=== PATIENT | male | born 1945 | race Caucasian/White ===

== ENCOUNTER → 2017-02-02 | Outpatient (CLI) | payer BC ==
[~2017-02-02] MED LIST: ASPCH81X GT; ASPI-435 PO; ATV2 PO; BNC5 PO; BUPRTAB PO; CPR500 PO; CRS10 PO; ERGO500011 PO; FINA5TAB PO; IBUP600T44 PO; LITH600C PO; LORA-741 PO; LRT5 PO; METR-163 PO; OXCA300T4 PO; ROSU20TA PO; SENN25TA PO; TAMS0.4C38 PO; [UNRECOGNIZED DRUG - CODE]
[2017-02-02 13:27] LABS: CALCIUM 8.7 mg/dl (8.5-10.1); ESTIMATED AVERAGE GLUCOSE 117 mg/dl; HA1C FLAG Normal (Normal)
[2017-02-02 13:28] LABS: ALT/SGPT 28 U/L (12-78); BLOOD UREA NITROGEN 35 mg/dl (7-18); BUN/CREATININE RATIO 17.3 (10-20); CARBON DIOXIDE 26 mmol/L (21-32); CHLORIDE 109 mmol/L (98-107); CHOLESTEROL 142 mg/dl (0-200); GLUCOSE 109 mg/dl (70-99); POTASSIUM 4.9 mmol/L (3.5-5.1); SODIUM 139 mmol/L (136-145); TRIGLYCERIDES 449 mg/dl (0-150)
[2017-02-02 13:31] LABS: ALB/GLOB RATIO 1.4 (0.9-2); ALKALINE PHOSPHATASE 78 U/L (45-117); AST/SGOT 20 U/L (15-37); CHOLESTEROL/HDL RATIO 5.3; HDL CHOLESTEROL 27 mg/dl
== END | disposition home or self-care (01) ==
LOC: C.LABPVFM 07:56
PROVIDERS: ATTEND Urology
DX: F31.30 Bipolar disorder, current episode depressed, mild or moderate severity, unspecified (principal); R73.9 Hyperglycemia, unspecified; R97.20 Elevated prostate specific antigen [PSA]

== ENCOUNTER → 2017-04-01 | Day surgery (SDC) | payer BC ==
[2017-03-22 09:55] VITALS: BMI 26.0
[~2017-04-01] VITALS: Ht 172.7 cm; Wt 78.6 kg
[~2017-04-01] MED LIST changes: -ASPCH81X GT; -ATV2 PO; -CPR500 PO; -CRS10 PO; +ERGO1CAP41 PO; -ERGO500011 PO; -IBUP600T44 PO; +LIDOCAINE HCL 2% 2 ML VIAL (20MG/ML) ONE; -LITH600C PO; -LRT5 PO; -METR-163 PO; +PROPOFOL IV EMULSION 10 MG/ML 20 ML VIAL IV ONE; -SENN25TA PO; +SODIUM CHLORIDE 0.9% 500ML 500 ML IV ONE; -[UNRECOGNIZED DRUG - CODE]
[2017-04-01 12:53] VITALS: Ht 172.7 cm; Wt 78.6 kg
[2017-04-01 13:04] VITALS: TEMP 36.5
--- NOTE | 2017-04-01 13:20 | Endo History and Physical ---
History & Physical Date of Service: Apr 01, 2017. Chief Complaint: ABNORMAL CT SCAN Referring Physician: DR HINES History of Present Illness 71 yo CM who presents for EGD secondary to abnormal CT Scan Past Surgical History Hx Cardiac Surgery: No Hx Internal Defibrillator: No Hx Pacemaker: No Hx Abdominal Surgery: No Hx of Implantable Prosthesis: No Hx Post-Op Nausea and Vomiting: No Hx Cancer Surgery: No Hx Thoracic Surgery: No Hx Orthopedic: No Hx Urinary Tract Surgery: No Family History None Social History Smoking Status: Former Smoker Hx Substance Use: No Hx Alcohol Use: No Allergies Coded Allergies: Penicillins (Verified Allergy, Unknown, A CHILD COULD NOT TAKE, 04/01/17 ) Uncoded Allergies: METAL (Allergy, Unknown, RASH, 03/22/17) Current Medications Reported Home Medications Medications Dose Route/Sig Max Daily Dose Days Date Category Wellbutrin Xl (Bupropion Hcl) 150 Mg Tab 1 Tab PO BID 03/22/17 Reported Flomax (Tamsulosin Hcl) 0.4 Mg Cap 0.4 Mg PO QPM 03/22/17 Reported Crestor (Rosuvastatin Calcium) 20 Mg Tab 20 Mg PO DAILY 03/22/17 Reported Trileptal (Oxcarbazepine) 300 Mg Tab 2 Tabs PO QPM 03/22/17 Reported Trileptal (Oxcarbazepine) 300 Mg Tab 1 Tab PO QAM 03/22/17 Reported Ativan (Lorazepam) 0.5 Mg Tab 1-3 Tabs PO QPM PRN 03/22/17 Reported Proscar (Finasteride) 5 Mg Tab 5 Mg PO QAM 03/22/17 Reported Vitamin D 88596 Unit (Ergocalciferol) 50,000 Unit Cap 1 Tab PO MONTHLY 03/22/17 Reported Benicar (Olmesartan Medoxomil) 5 Mg Tab 5 Mg PO QAM 03/22/17 Reported Aspirin 81 (Aspirin) 81 Mg Tab 1 Tab PO Q2D 03/22/17 Reported Vital Signs Weight (Kilograms): 78.64 Height (Feet): 5 Height (Inches): 8 Date Time Temp Pulse Resp B/P (MAP) Pulse Ox O2 Delivery O2 Flow Rate FiO2 04/01/17 13:04 36.5 65 20 133/85 (101) 97 Room Air Physical Exam General Appearance: WD/WN, no apparent distress Respiratory/Chest: Auscultation: breath sounds normal Cardiovascular: Heart Auscultation: RRR Abdomen: Bowel Sounds: normal Inspection & Palpation: soft, non-distended, no tenderness, guarding & rebound Assessment and Plan Assessment: 71 yo CM who presents for EGD secondary to abnormal CT Scan Plan: Proceed with EGD.
--- NOTE | 2017-04-01 14:20 | Discharge Instructions ---
Endoscopy Patient Instructions Date / Procedure(s) Performed Apr 01, 2017. EGD Allergy Information Coded Allergies: Penicillins (Verified Allergy, Unknown, A CHILD COULD NOT TAKE, 04/01/17 ) Uncoded Allergies: METAL (Allergy, Unknown, RASH, 03/22/17) Discharge Date / Findings Apr 01, 2017. Esophageal stricture s/p dilation to 20mm Gastritis s/p biopsies Medication Instructions Stopped Medication(s): ASPIRIN OK to resume all medications today as prescribed Reported Home Medications Medications Dose Route/Sig Max Daily Dose Days Date Category Wellbutrin Xl (Bupropion Hcl) 150 Mg Tab 1 Tab PO BID 03/22/17 Reported Flomax (Tamsulosin Hcl) 0.4 Mg Cap 0.4 Mg PO QPM 03/22/17 Reported Crestor (Rosuvastatin Calcium) 20 Mg Tab 20 Mg PO DAILY 03/22/17 Reported Trileptal (Oxcarbazepine) 300 Mg Tab 2 Tabs PO QPM 03/22/17 Reported Trileptal (Oxcarbazepine) 300 Mg Tab 1 Tab PO QAM 03/22/17 Reported Ativan (Lorazepam) 0.5 Mg Tab 1-3 Tabs PO QPM PRN 03/22/17 Reported Proscar (Finasteride) 5 Mg Tab 5 Mg PO QAM 03/22/17 Reported Vitamin D 75315 Unit (Ergocalciferol) 50,000 Unit Cap 1 Tab PO MONTHLY 03/22/17 Reported Benicar (Olmesartan Medoxomil) 5 Mg Tab 5 Mg PO QAM 03/22/17 Reported Aspirin 81 (Aspirin) 81 Mg Tab 1 Tab PO Q2D 03/22/17 Reported Provider Instructions Activity Restrictions - No exercising or heavy lifting for 24 hours. - Do not drink alcohol the day of the procedure. - Do not drive a car or operate machinery until the day after the procedure. - Do not make any important decisions or sign important papers in 24 hours after the procedure. Following Day: - Return to full activity which may include returning to work/school. Diet Start your diet with liquids and light foods (jello, soup, juice, toast). Then eat your usual diet if not nauseated. Treatment For Common After Affects For mild abdominal pain, bloating, or excessive gas: - Rest - Eat lightly - Lie on right side Follow-Up Information Follow-up with DR HINES as scheduled Anesthesia Information What You Should Know You have had a procedure that required some medicine to reduce anxiety and discomfort. This treatment is called moderate sedation. After receiving the treatment, you may be sleepy, but you will be able to breathe on your own. The effects of the treatment may last for several hours. Follow these instructions along with Activity/Diet recommendations noted above: * Do NOT do anything where dizziness or clumsiness would be dangerous. * Rest quietly at home today, then you can be up and about tomorrow. * Have a responsible person stay with you the rest of today. * You may have had an I.V. today. If so, you may take the dressing off later today. Recommendations Call your doctor if: * Trouble breathing * Continuous vomiting for more than 24 hours * Temperature above 101 degrees * Severe abdominal pain or bloating * Pain not relieved by pain medicine ordered * There is increased drainage or redness from any incision * A large amount of rectal bleeding greater than 2-3 tablespoons. (If you had a polyp/s removed or have hemorrhoids, a small amount of blood - from the rectum is to be expected.) * You have any unanswered questions or concerns. IN THE EVENT OF A SERIOUS EMERGENCY, GO TO THE NEAREST EMERGENCY ROOM Your discharge instructions were prepared by provider Sadiq Lucio. Patient Instructions Signature Page Constantine Martinez Patient (or Guardian) Signature/Date: I have read and understand the instructions given to me by my caregivers. Caregiver/RN/Doctor Signature/Date: The above-named patient and/or guardian has received patient instructions on this date. + Original Patient Signature Page (only) stays with chart. Please make copy for patient.
--- NOTE | 2017-04-01 14:25 | GI REPORT ---
Procedure Date: 04/01/2017 1:41 PM Procedure: Upper GI endoscopy Indications: Abnormal CT of the GI tract Medicines: Monitored Anesthesia Care Complications: No immediate complications. Estimated Blood Loss: Estimated blood loss: none. Procedure: Pre-Anesthesia Assessment: - Prior to the procedure, a History and Physical was performed, and patient medications and allergies were reviewed. The patient's tolerance of previous anesthesia was also reviewed. The risks and benefits of the procedure and the sedation options and risks were discussed with the patient. All questions were answered, and informed consent was obtained. Prior Anticoagulants: The patient has taken aspirin, last dose was 5 days prior to procedure. ASA Grade Assessment: III - A patient with severe systemic disease. After reviewing the risks and benefits, the patient was deemed in satisfactory condition to undergo the procedure. After obtaining informed consent, the endoscope was passed under direct vision. Throughout the procedure, the patient's blood pressure, pulse, and oxygen saturations were monitored continuously. The scope was introduced through the mouth, and advanced to the second part of duodenum. The upper GI endoscopy was accomplished without difficulty. The patient tolerated the procedure well. Findings: One mild benign-appearing, intrinsic stenosis was found. This measured 1.5 cm (inner diameter) x 1 cm (in length) and was traversed. A TTS dilator was passed through the scope. Dilation with an 18-19-20 mm balloon (to a maximum balloon size of 20 mm) dilator was performed. The dilation site was examined and showed moderate improvement in luminal narrowing. Localized moderate inflammation characterized by erythema was found in the gastric antrum. Biopsies were taken with a cold forceps for histology. The examined duodenum was normal. Impression: - Benign-appearing esophageal stenosis. Dilated. - Gastritis. Biopsied. - Normal examined duodenum. Recommendation: - Resume previous diet. - Continue present medications. - Await pathology results. - Return to primary care physician as previously scheduled. Sadiq Lucio, 04/01/2017 2:24:37 PM This report has been signed electronically. Note Initiated On: 04/01/2017 1:41 PM I attest to the content of the Intraoperative Record and orders documented therein, exceptions below
--- NOTE | 2017-04-01 14:31 | Anesthesiology Progress Note ---
Anesthesia Post Op Note Date & Time Apr 01, 2017 at 14:31 Vital Signs Pain Intensity: 0 Vital Signs Past 12 Hours Date Time Temp Pulse Resp B/P (MAP) Pulse Ox O2 Delivery O2 Flow Rate FiO2 04/01/17 14:16 61 20 134/78 (96) 96 Room Air 04/01/17 13:04 36.5 65 20 133/85 (101) 97 Room Air Notes Mental Status: alert / awake / arousable, participated in evaluation Pt Amnestic to Procedure: Yes Nausea / Vomiting: adequately controlled Pain: adequately controlled Airway Patency, RR, SpO2: stable & adequate BP & HR: stable & adequate Hydration State: stable & adequate Anesthetic Complications: no major complications apparent
[2017-04-01 14:47] VITALS: BP 132/85; PULSE 57; O2SAT 96
== END | disposition home or self-care (01) ==
LOC: C.GI 12:46
PROVIDERS: ATTEND Internal Medicine
DX: K22.2 Esophageal obstruction (principal); K29.70 Gastritis, unspecified, without bleeding; Z87.891 Personal history of nicotine dependence; Z79.82 Long term (current) use of aspirin; Z79.899 Other long term (current) drug therapy

== ENCOUNTER → 2017-04-12 | Outpatient (CLI) | payer BC ==
[~2017-04-12] MED LIST changes: -LIDOCAINE HCL 2% 2 ML VIAL (20MG/ML) ONE; -PROPOFOL IV EMULSION 10 MG/ML 20 ML VIAL IV ONE; -SODIUM CHLORIDE 0.9% 500ML 500 ML IV ONE
== END | disposition home or self-care (01) ==
LOC: C.LABSPEC 14:49
PROVIDERS: ATTEND Urology
DX: R35.1 Nocturia (principal); R39.15 Urgency of urination; R35.0 Frequency of micturition; R39.198 Other difficulties with micturition; N40.1 Benign prostatic hyperplasia with lower urinary tract symptoms

== ENCOUNTER → 2017-07-13 | Outpatient (CLI) | payer BC ==
[~2017-07-13] MED LIST changes: -ERGO1CAP41 PO; +ERGO500011 PO
[2017-07-13 13:04] LABS: HEMATOCRIT 40.2 % (42-52); MEAN CELL VOLUME 90.7 fL (80-100); MEAN CELL VOLUME 91.4 fL (80-100); MEAN CORPUSCULAR HEMOGLOBIN 29.6 pg (25-34); MEAN CORPUSCULAR HGB CONC 32.7 g/dl (32-36); MEAN CORPUSCULAR HGB CONC 32.8 g/dl (32-36); MEAN PLATELET VOLUME 11.3 fL (7.4-10.4); PLATELET COUNT 162 K/uL (130-400); PLATELET COUNT 163 K/uL (130-400); RED BLOOD COUNT 4.52 M/uL (4.7-6.1); WHITE BLOOD COUNT 20.72 K/uL (4.8-10.8); WHITE BLOOD COUNT 20.73 K/uL (4.8-10.8)
[2017-07-13 13:08] LABS: ESTIMATED AVERAGE GLUCOSE 117 mg/dl; HA1C FLAG Normal (Normal)
[2017-07-13 13:17] LABS: URINE APPEARANCE CLEAR (CLEAR); URINE BILIRUBIN NEG (NEG); URINE COLOR YELLOW; URINE NITRITE NEG (NEG); URINE PH 5.5 (4.5-7.5); URINE SPECIFIC GRAVITY 1.019 (1.000-1.030); UROBILINOGEN NEG (NEG)
[2017-07-13 13:19] LABS: MANUAL MICROSCOPIC REQUIRED? NO; REVIEW REQ? NO
[2017-07-13 13:20] LABS: CREATININE, URINE 82.3 mg/dl; URINE PROTIEN/CREAT RATIO 2.2 (0-0.2)
[2017-07-13 13:24] LABS: ALT/SGPT 31 U/L (12-78); AST/SGOT 21 U/L (15-37); BLOOD UREA NITROGEN 30 mg/dl (7-18); BUN/CREATININE RATIO 15.4 (10-20); CALCIUM 8.4 mg/dl (8.5-10.1); CARBON DIOXIDE 23 mmol/L (21-32); CHLORIDE 107 mmol/L (98-107); CHOLESTEROL 167 mg/dl (0-200); CREATININE 1.96 mg/dl (0.60-1.40); GLUCOSE 107 mg/dl (70-99); POTASSIUM 5.3 mmol/L (3.5-5.1); SODIUM 136 mmol/L (136-145)
[2017-07-13 13:27] LABS: ALB/GLOB RATIO 1.2 (0.9-2); ALKALINE PHOSPHATASE 83 U/L (45-117); ALT/SGPT 32 U/L (12-78); AST/SGOT 21 U/L (15-37); BLOOD UREA NITROGEN 31 mg/dl (7-18); BUN/CREATININE RATIO 15.4 (10-20); CALCIUM 8.5 mg/dl (8.5-10.1); CARBON DIOXIDE 22 mmol/L (21-32); CHLORIDE 106 mmol/L (98-107); CHOLESTEROL/HDL RATIO 4.8; CREATININE 1.99 mg/dl (0.60-1.40); GLUCOSE 102 mg/dl (70-99); HDL CHOLESTEROL 35 mg/dl; LDL CHOLESTEROL CALCULATED 53 mg/dl; POTASSIUM 5.4 mmol/L (3.5-5.1); SODIUM 136 mmol/L (136-145); TRIGLYCERIDES 396 mg/dl (0-150); VERY LOW DENSITY LIPOPROT CALC 79 mg/dl
[2017-07-13 13:39] LABS: ALB/GLOB RATIO 1.2 (0.9-2); ALKALINE PHOSPHATASE 84 U/L (45-117); CHOLESTEROL 160 mg/dl (0-200); CHOLESTEROL/HDL RATIO 4.3; HDL CHOLESTEROL 37 mg/dl; LDL CHOLESTEROL CALCULATED 45 mg/dl; TRIGLYCERIDES 391 mg/dl (0-150); VERY LOW DENSITY LIPOPROT CALC 78 mg/dl
[2017-07-13 14:23] LABS: BASO % 0.2 %; BASO ABS # 0.04 K/uL (0-0.2); COMPLETE YES; EOS % 1.1 %; IG% 0.1 %; LYMPH % 71.4 %; LYMPH ABS # 14.79 K/uL (1.2-3.4); MONO % 5.2 %; SMUDGE CELLS PRESENT
== END | disposition home or self-care (01) ==
LOC: C.LABPVFM 08:10
PROVIDERS: ATTEND Internal Medicine Nephrology
DX: I12.9 Hypertensive chronic kidney disease with stage 1 through stage 4 chronic kidney disease, or unspecified chronic kidney disease (principal); R80.9 Proteinuria, unspecified; E55.9 Vitamin D deficiency, unspecified; N18.3 Chronic kidney disease, stage 3 (moderate); E78.5 Hyperlipidemia, unspecified; R73.03 Prediabetes

== ENCOUNTER → 2018-03-14 | Outpatient (CLI) | payer BC ==
[2018-03-14 12:30] LABS: HEMATOCRIT 39.7 % (42-52); HEMOGLOBIN 12.9 g/dL (14.0-18.0); MEAN CELL VOLUME 90.8 fL (80-100); MEAN CORPUSCULAR HEMOGLOBIN 29.5 pg (25-34); MEAN CORPUSCULAR HGB CONC 32.5 g/dl (32-36); PLATELET COUNT 154 K/uL (130-400); RED CELL DISTRIBUTION WIDTH SD 46.8 fL (36.4-46.3); WHITE BLOOD COUNT 18.22 K/uL (4.8-10.8)
[2018-03-14 12:50] LABS: ALBUMIN 3.7 gm/dl (3.4-5.0); ALKALINE PHOSPHATASE 86 U/L (45-117); ALT/SGPT 28 U/L (12-78); AST/SGOT 23 U/L (15-37); BLOOD UREA NITROGEN 26 mg/dl (7-18); CALCIUM 8.5 mg/dl (8.5-10.1); CARBON DIOXIDE 24 mmol/L (21-32); CREATININE 1.87 mg/dl (0.60-1.40); GLUCOSE 104 mg/dl (70-99); SODIUM 137 mmol/L (136-145); TOTAL PROTEIN 6.7 gm/dl (6.4-8.2)
[2018-03-14 13:23] LABS: BASO % 0.2 %; BASO ABS # 0.03 K/uL (0-0.2); EOS % 0.8 %; EOS ABS # 0.14 K/uL (0-0.5); IG# 0.04 K/uL (0.00-0.02); LYMPH % 68.6 %; MONO % 4.8 %; MONO ABS # 0.87 K/uL (0.11-0.59); NEUT % 25.4 %; NEUT ABS # 4.64 K/uL (1.4-6.5)
--- NOTE | 2018-04-04 09:24 | CODING QUERY NO DIAGNOSIS ---
: 1945 TREATMENT RENDERED WITHOUT A DIAGNOSIS To promote full compliance with coding requirements relating to patient care, physician participation is requested in all cases of home care consultant uncertainty. Please assist us with providing a diagnosis/symptom for the test(s) below: A diagnosis/symptom was not documented on your Order. A valid diagnosis/symptom is required to bill all insurances. Please remember that we are unable to code a diagnosis of rule out, probable, possible, questionable, or suspected. Tests that require a diagnosis: DOS: 03/14/18 * PSA DIAGNOSIS: Provider Signature: Date: Thank you Carol Loaiza Health Information Management Once completed, please kindly fax back to [phone] For questions please call [phone]
== END | disposition home or self-care (01) ==
LOC: C.LABPVFM 08:37
PROVIDERS: ATTEND Internal Medicine Nephrology
DX: I12.9 Hypertensive chronic kidney disease with stage 1 through stage 4 chronic kidney disease, or unspecified chronic kidney disease (principal); R80.9 Proteinuria, unspecified; E55.9 Vitamin D deficiency, unspecified; N18.3 Chronic kidney disease, stage 3 (moderate); E78.1 Pure hyperglyceridemia; C91.90 Lymphoid leukemia, unspecified not having achieved remission; R97.20 Elevated prostate specific antigen [PSA]

== ENCOUNTER → 2018-04-21 | Outpatient (CLI) | payer BC ==
--- NOTE | 2018-04-21 12:12 | DIAGNOSTIC IMAGING REPORT ---
CHEST 2 VIEWS ROUTINE HISTORY: Breast pain, right COMPARISON: Chest 01/14/2009. FINDINGS: The lungs are clear. Cardiac silhouette is normal in size. No pleural effusions. No pneumothorax. IMPRESSION: No acute process. Electronically signed by: Anthony Christine M.D. 04/21/2018 12:11 PM Dictated Date/Time: 04/21/2018 12:08 PM
== END | disposition home or self-care (01) ==
LOC: C.RADPV 11:49
PROVIDERS: ATTEND Family Medicine
DX: N64.4 Mastodynia (principal)

== ENCOUNTER 2019-04-15 17:21 | Observation (INO) ==
[2019-04-15] MEDS ORDERED: ONDANSETRON INJ 2 MG/ML 2 ML VIAL IV STA (17:56)
[2019-04-15] MEDS ORDERED: SODIUM CHLORIDE 0.9% 1000ML 1,000 ML IV ONE (17:56)
[2019-04-15 18:00] LABS: Albumin Level 4.1 gm/dl (3.4-5.0); Calcium 8.8 mg/dl (8.5-10.1); Creatinine Clr Calc Pharmacy 23.1 ml/min; Est GFR (African American) 22.7; Est GFR (Non-African American) 19.6; Potassium 4.7 mmol/L (3.5-5.1)
[2019-04-15 18:03] LABS: Albumin Globulin Ratio 1.4 (0.9-2); Bilirubin,Total 0.4 mg/dl (0.2-1); Total Protein 7.1 gm/dl (6.4-8.2)
[2019-04-15 18:19] LABS: Mean Corpuscular Hgb Conc 33.9 g/dL (32-36); Mean Platelet Volume 10.9 fL (7.4-10.4); Platelet Count 156 K/uL (130-400)
[2019-04-15 18:20] LABS: Appearance Urine Clear (Clear); Bacteria Urine Automated Negative (Negative); Bilirubin Urine Negative (Negative); Blood Urine Negative (Negative); Color Urine Yellow; Glucose Urine UA Negative (Negative); Ketones Urine Negative (Negative); Leukocyte Esterase Urine Negative (Negative); Nitrite Urine Negative (Negative); Protein Urine 3+ (Negative); RBC Urine Automated 0-4 /hpf (0-4); Specific Gravity Urine 1.024 (1.000-1.030); Urobilinogen Urine Negative (Negative)
[2019-04-15 18:42] LABS: Hematocrit (blood only) 38.6 % (42-52); Hemoglobin 13.1 g/dL (14.0-18.0); Mean Corpuscular Volume 92.3 fL (80-100); RDW Coefficient of Variation 13.9 % (11.5-14.5); RDW Standard Deviation 46.4 fL (36.4-46.3); Red Blood Count 4.18 M/uL (4.7-6.1); White Blood Count 24.45 K/uL (4.8-10.8)
[2019-04-15 18:43] LABS: Basophils # (auto) 0.04 K/uL (0-0.2); Basophils % (auto) 0.2 %; Eosinophils # (auto) 0.13 K/uL (0-0.5); Eosinophils % (auto) 0.5 %; Immature Granulocytes # (auto) 0.04 K/uL (0.00-0.02); Immature Granulocytes % (auto) 0.2 %; Lymphocytes # (auto) 12.74 K/uL (1.2-3.4); Lymphocytes % (auto) 52.1 %; Monocytes # (auto) 1.18 K/uL (0.11-0.59); Monocytes % (auto) 4.8 %; Neutrophils # (auto) 10.32 K/uL (1.4-6.5); Neutrophils % (auto) 42.2 %
--- NOTE | 2019-04-15 19:22 | CT Scan Report ---
CT SCAN OF THE ABDOMEN AND PELVIS WITHOUT IV CONTRAST CLINICAL HISTORY: Right lower quadrant abdominal pain. COMPARISON STUDY: Abdominal CT dated 11/07/2009. PET/CT dated 06/11/2018. TECHNIQUE: CT scan of the abdomen and pelvis is performed from the lung bases to the proximal femora. Images are reviewed in the axial, sagittal, and coronal planes. IV contrast was not administered for this examination as per the referring clinician. Note that the examination was performed in signific antly suboptimal fashion without oral and IV contrast. A dose lowering technique was utilized adherin g to the principles of ALARA. CT DOSE: 682.73 mGy.cm FINDINGS: Lung bases: The heart is normal in size and without pericardial effusion. Postoperative change is not ed at the left lung base. There is left basilar scarring/atelectasis. No airspace consolidation or pl eural effusion is identified. Liver: The unenhanced liver is normal in size, contour, and attenuation. There is no intrahepatic zainab iary ductal dilatation. Gallbladder: There are calcified gallstones, with no CT evidence of acute cholecystitis. Spleen: Normal in size and attenuation. Pancreas: The unenhanced pancreas is moderately atrophic and grossly unremarkable. Adrenal glands: Unremarkable. Kidneys: The unenhanced kidneys are atrophic and without hydronephrosis. There are no renal calculi i dentified. Renal cysts measure up to 5.6 cm. Additional complex/hyperdense renal cysts are noted. The se are similar to previous. An indeterminant 2.0 cm lesion in the anterior interpolar right kidney as seen on image #179. Abdominal vasculature: There is advanced atherosclerotic calcification and ectasia of the abdominal a radha. An aneurysm of the distal abdominal aorta measures 3.5 x 3.9 cm (AP x transverse). Bowel: There is advanced colonic diverticulosis without CT evidence of acute diverticulitis. No bowel obstruction is seen. Mild colonic fecal retention is observed. The appendix is distended and fluid- filled, measuring up to 10 mm in diameter as seen on image #339. There is peritoneal inflammation, an d findings are consistent with acute appendicitis. The appendix approaches a fat-containing right ing uinal hernia. There is no organized fluid collection to suggest abscess. Peritoneum: There is no intraperitoneal free air or abdominal ascites. There is a small fat-containin g umbilical hernia. Lymphadenopathy: None. Pelvic viscera: The prostate gland is enlarged and heterogeneous, measuring 5.9 cm in transverse diam eter. There is median lobe hypertrophy. The bladder wall is thickened and trabeculated indicating chr onic outlet obstruction. There are bilateral fat-containing inguinal hernias. Skeletal structures: The skeletal structures are osteopenic. There is mild lumbosacral spondylosis. N o lytic or blastic lesions are seen. IMPRESSION: 1. Suboptimal examination without oral and IV contrast. 2. Findings are consistent with acute appendicitis. There is no evidence of abscess or perforation. N ote that the tip of the appendix may be contained within a right inguinal hernia. 3. Cholelithiasis. 4. There is a 2.0 cm indeterminant lesion within the anterior interpolar right kidney. Follow-up with a nonemergent contrast-enhanced renal protocol CT or MRI is recommended for further assessment. 5. There is a 3.5 x 3.9 cm infrarenal abdominal aortic aneurysm. 6. Advanced colonic diverticulosis without CT evidence of acute diverticulitis. 7. Additional findings as above. Electronically signed by: Max Maya M.D. 04/15/2019 7:21 PM
[2019-04-15] MEDS ORDERED: cefOXitin 2,000 MG/60 ML BAG IV STA (19:30)
--- NOTE | 2019-04-15 20:47 | History & Physical Report ---
Date of Service April 15, 2019 Assessment & Plan (1) Acute appendicitis: This patient's history, physical findings, laboratories and CT findings (I reviewed both the images and the report) are consistent with appendicitis. I have recommended a laparoscopic appendectomy. I explained the possible need to convert to an open procedure. I explained the possible complications associated with those procedures. The patient wishes to go ahead with surgery and has signed a consent form. Present on Admission?: Yes History of Present Illness Chief Complaint: Right lower quadrant pain Primary Care Provider: SOLEDAD Lopez This is a 73-year-old male who presented to the emergency room with a complaint of pain in the right lower quadrant just above the inguinal crease. It began about 10:00 this morning. The pain began in that area and has remained there. It does not radiate to the left or into the upper abdomen and does not radiate around to his. It is sharp in character and is exacerbated by motion. He is never had pain like this before. This is not accompanied by nausea or vomiting. He has not had fever or chills. His bowels move regularly without diarrhea, constipation, melena or hematochezia. He denies dysuria and hematuria. He is never had previous abdominal surgery. Allergies Allergy/AdvReac Type Severity Reaction Status Date / Time Penicillins Allergy Unknown A CHILD Verified 02/27/19 11:02 COULD NOT TAKE Home Medications Home Medications Medication Instructions Recorded Confirmed Type ergocalciferol (vitamin D2) 50,000 unit PO MONTHLY 06/18/18 04/15/19 History [Vitamin D2] finasteride 5 mg tablet 5 mg PO QAM #30 tab 02/22/19 04/15/19 Rx tamsulosin 0.4 mg capsule 0.4 mg PO QPM #90 cap 02/22/19 04/15/19 Rx lorazepam 1 mg PO HS 04/15/19 04/15/19 History oxcarbazepine 600 mg PO HS 04/15/19 04/15/19 History oxcarbazepine [Trileptal] 300 mg PO QAM 04/15/19 04/15/19 History rosuvastatin [Crestor] 20 mg PO QAM 04/15/19 04/15/19 History Past Med/Surg History Medical History Abdominal aneurysm AAA 3.6cm in axial diameter (previously 2.7cm on 2011 imaging) Bipolar disorder Chronic lymphocytic leukemia avg WBC ~ 18 History of diverticulitis Hyperlipidemia Hypertension Kidney cysts noted on 06/05/18 MRI Kidney disease STAGE 3/DR MITCHELL Lung nodule LEFT Pre-diabetes Surgical History S/P lobectomy of lung Left lower Hx of colonoscopy Hx of endoscopy UPPER Hx of oral surgery Family History Other Family history non-contributory Social History Preferred Language: Wolof Communication Ability: Effective Visual Impairment: No Limitations Beliefs That Will Affect Care: Jewish Jewish Beliefs: [employer] marital status: Current Living Situation: Spouse Feels Safe at Home: Yes Smoking Status: Former smoker Cigarettes Per Day: 50 PACK YEARS Hx Alcohol Use: No Hx Substance Use: No Seatbelt Use: always Review of Systems Constitutional: no fever and no chills Respiratory: no cough and no dyspnea Cardiovascular: no chest pain Gastrointestinal: as per Subjective / HPI Genitourinary: + as per Subjective / HPI Hematologic / Lymphatic: + problem reported (history of CLL) Physical Exam Constitutional: no acute distress Respiratory: normal respiratory effort, lungs clear to auscultation Cardiovascular: Rate/Rhythm: regular rate and regular rhythm Gastrointestinal (Abdomen): Inspection/Auscultation: abdomen normal to inspection; abdomen not distended Percussion/Palpation: + abdomen tender (Significant tenderness in the right lower quadrant) and abdomen soft Skin: no rashes, warm and dry Lymphatic: no cervical lymphadenopathy Results & Data Vital Signs (Past 12 Hours) Vital Signs Temp Pulse Pulse Resp BP BP Pulse Ox 04/15/19 19:31 68 75 23 156/94 H 156/94 H 97 04/15/19 18:30 66 15 139/79 97 04/15/19 18:06 68 18 146/83 H 96 04/15/19 17:43 95 04/15/19 17:26 36.8 C 73 20 134/84 97 Laboratory Results 04/15/19 04/15/19 04/15/19 Range/Units 18:02 17:15 17:15 WBC 24.45 H (4.8-10.8) K/uL RBC 4.18 L (4.7-6.1) M/uL Hgb 13.1 L (14.0-18.0) g/dL Hct 38.6 L (42-52) % MCV 92.3 (80-100) fL MCH 31.3 (25-34) pg MCHC 33.9 (32-36) g/dL RDW Std Deviation 46.4 H (36.4-46.3) fL RDW Coeff of Stephen 13.9 (11.5-14.5) % Plt Count 156 (130-400) K/uL MPV 10.9 H (7.4-10.4) fL Immature Gran % (Auto) 0.2 % Neut % (Auto) 42.2 % Lymph % (Auto) 52.1 % [place] % (Auto) 4.8 % Eos % (Auto) 0.5 % Baso % (Auto) 0.2 % Immature Gran # (Auto) 0.04 H (0.00-0.02) K/uL Neut # (Auto) 10.32 H (1.4-6.5) K/uL Lymph # (Auto) 12.74 H (1.2-3.4) K/uL [place] # (Auto) 1.18 H (0.11-0.59) K/uL Eos # (Auto) 0.13 (0-0.5) K/uL Baso # (Auto) 0.04 (0-0.2) K/uL Sodium 139 (136-145) mmol/L Potassium 4.7 (3.5-5.1) mmol/L Chloride 109 H (98-107) mmol/L Carbon Dioxide 22 (21-32) mmol/L Anion Gap 8.0 (3-11) BUN 48 H (7-18) mg/dl Creatinine 3.01 H (0.6-1.4) mg/dl Est Cr Clr Drug Dosing 23.1 ml/min Est GFR ( Amer) 22.7 Est GFR (Non-Af Amer) 19.6 BUN/Creatinine Ratio 16.0 (10-20) Glucose 101 H (70-99) mg/dl Calcium 8.8 (8.5-10.1) mg/dl Total Bilirubin 0.4 (0.2-1) mg/dl AST 23 (15-37) U/L ALT 29 (12-78) U/L Alkaline Phosphatase 54 (45-117) U/L Total Protein 7.1 (6.4-8.2) gm/dl Albumin 4.1 (3.4-5.0) gm/dl Globulin 3.0 (2.5-4.0) gm/dl Albumin/Globulin Ratio 1.4 (0.9-2) Lipase 646 H (73-393) U/L Urine Color Yellow Urine Appearance Clear (Clear) Urine pH 5.0 (4.5-7.5) Ur Specific [place] 1.024 (1.000-1.030) Urine Protein 3+ H (Negative) Urine Glucose (UA) Negative (Negative) Urine Ketones Negative (Negative) Urine Blood Negative (Negative) Urine Nitrite Negative (Negative) Urine Bilirubin Negative (Negative) Urine Urobilinogen Negative (Negative) Ur Leukocyte Esterase Negative (Negative) Urine WBC (Auto) 1-5 (0-5) /hpf Urine RBC (Auto) 0-4 (0-4) /hpf U Hyaline Cast (Auto) 1-5 (0-5) /lpf U Epithel Cells (Auto) 5-10 H (0-5) /lpf Urine Bacteria (Auto) Negative (Negative) Diagnostic Findings CT SCAN OF THE ABDOMEN AND PELVIS WITHOUT IV CONTRAST CLINICAL HISTORY: Right lower quadrant abdominal pain. COMPARISON STUDY: Abdominal CT dated 11/07/2009. PET/CT dated 06/11/2018. TECHNIQUE: CT scan of the abdomen and pelvis is performed from the lung bases to the proximal femora. Images are reviewed in the axial, sagittal, and coronal planes. IV contrast was not administered for this examination as per the referring clinician. Note that the examination was performed in significantly suboptimal fashion without oral and IV contrast. A dose lowering technique was utilized adhering to the principles of ALARA. CT DOSE: 682.73 mGy.cm FINDINGS: Lung bases: The heart is normal in size and without pericardial effusion. Postoperative change is noted at the left lung base. There is left basilar scarring/atelectasis. No airspace consolidation or pleural effusion is identified. Liver: The unenhanced liver is normal in size, contour, and attenuation. There is no intrahepatic biliary ductal dilatation. Gallbladder: There are calcified gallstones, with no CT evidence of acute cholecystitis. Spleen: Normal in size and attenuation. Pancreas: The unenhanced pancreas is moderately atrophic and grossly unremarkable. Adrenal glands: Unremarkable. Kidneys: The unenhanced kidneys are atrophic and without hydronephrosis. There are no renal calculi identified. Renal cysts measure up to 5.6 cm. Additional complex/hyperdense renal cysts are noted. These are similar to previous. An indeterminant 2.0 cm lesion in the anterior interpolar right kidney as seen on image #179. Abdominal vasculature: There is advanced atherosclerotic calcification and ectasia of the abdominal aorta. An aneurysm of the distal abdominal aorta measures 3.5 x 3.9 cm (AP x transverse). Bowel: There is advanced colonic diverticulosis without CT evidence of acute diverticulitis. No bowel obstruction is seen. Mild colonic fecal retention is observed. The appendix is distended and fluid-filled, measuring up to 10 mm in diameter as seen on image #339. There is peritoneal inflammation, and findings are consistent with acute appendicitis. The appendix approaches a fat-containing right inguinal hernia. There is no organized fluid collection to suggest abscess. Peritoneum: There is no intraperitoneal free air or abdominal ascites. There is a small fat-containing umbilical hernia. Lymphadenopathy: None. Pelvic viscera: The prostate gland is enlarged and heterogeneous, measuring 5.9 cm in transverse diameter. There is median lobe hypertrophy. The bladder wall is thickened and trabeculated indicating chronic outlet obstruction. There are bilateral fat-containing inguinal hernias. Skeletal structures: The skeletal structures are osteopenic. There is mild lumbosacral spondylosis. No lytic or blastic lesions are seen. IMPRESSION: 1. Suboptimal examination without oral and IV contrast. 2. Findings are consistent with acute appendicitis. There is no evidence of abscess or perforation. Note that the tip of the appendix may be contained within a right inguinal hernia. 3. Cholelithiasis. 4. There is a 2.0 cm indeterminant lesion within the anterior interpolar right kidney. Follow-up with a nonemergent contrast-enhanced renal protocol CT or MRI is recommended for further assessment. 5. There is a 3.5 x 3.9 cm infrarenal abdominal aortic aneurysm. 6. Advanced colonic diverticulosis without CT evidence of acute diverticulitis. 7. Additional findings as above. (1) Acute appendicitis Acute appendicitis type: unspecified acute appendicitis type Qualified Code(s): K35.80 - Unspecified acute appendicitis
[2019-04-15] MEDS ORDERED: HEPARIN SOD (PORCINE) 5,000 UNITS/ML VIAL ONE (20:52)
[2019-04-15] MEDS ORDERED: BUPIVACAINE 0.5 % 5 MG/1 ML MPF 30ML VIAL ONE (20:52)
--- NOTE | 2019-04-15 20:53 | Anesthesiology Consultation ---
Date of Service April 15, 2019 Assessment & Plan (1) Encounter for pre-operative examination: Chart Review Chart Review: Acceptable Risk for Surgery History Surgery Operation Date: 04/15/19 21:00 Proposed Procedures p Laparoscopic Appendectomy - Lan Hopkins MD Height/Weight Height: 5 ft 8 in Weight: 84.6 kg Allergies Allergy/AdvReac Type Severity Reaction Status Date / Time Penicillins Allergy Unknown A CHILD Verified 02/27/19 11:02 COULD NOT TAKE Medications Home Medications Medication Instructions Recorded Confirmed Last Taken ergocalciferol (vitamin D2) 50,000 unit PO MONTHLY 06/18/18 04/15/19 03/16/19 [Vitamin D2] finasteride 5 mg tablet 5 mg PO QAM #30 tab 02/22/19 04/15/19 04/15/19 tamsulosin 0.4 mg capsule 0.4 mg PO QPM #90 cap 02/22/19 04/15/19 04/14/19 lorazepam 1 mg PO HS 04/15/19 04/15/19 04/14/19 oxcarbazepine 600 mg PO HS 04/15/19 04/15/19 04/14/19 oxcarbazepine [Trileptal] 300 mg PO QAM 04/15/19 04/15/19 04/15/19 rosuvastatin [Crestor] 20 mg PO QAM 04/15/19 04/15/19 04/15/19 Past Medical History Medical History Abdominal aneurysm AAA 3.6cm in axial diameter (previously 2.7cm on 2011 imaging) Bipolar disorder Chronic lymphocytic leukemia avg WBC ~ 18 History of diverticulitis Hyperlipidemia Hypertension Kidney cysts noted on 06/05/18 MRI Kidney disease STAGE 3/DR MITCHELL Lung nodule LEFT Pre-diabetes Past Family History Family History Other Family history non-contributory Past Surgical History Surgical History S/P lobectomy of lung Left lower Hx of colonoscopy Hx of endoscopy UPPER Hx of oral surgery Social History Smoking Status: Former smoker Smoking cigarettes per day: 50 PACK YEARS Hx Alcohol Use: No Hx Substance Use: No substance use type: does not use Physical Exam Vital Signs Last Vital Signs Temp 36.8 C 04/15/19 17:26 Pulse 75 04/15/19 19:31 Resp 23 04/15/19 19:31 BP 156/94 H 04/15/19 19:31 Pulse Ox 97 04/15/19 19:31 Testing Laboratory Results 04/15/19 17:15 04/15/19 17:15 Urine Color Yellow 04/15/19 18:02 Urine Appearance Clear (Clear) 04/15/19 18:02 Urine pH 5.0 (4.5-7.5) 04/15/19 18:02 Ur Specific [place] 1.024 (1.000-1.030) 04/15/19 18:02 Urine Protein 3+ (Negative) H 04/15/19 18:02 Urine Glucose (UA) Negative (Negative) 04/15/19 18:02 Urine Ketones Negative (Negative) 04/15/19 18:02 Urine Nitrite Negative (Negative) 04/15/19 18:02 Ur Leukocyte Esterase Negative (Negative) 04/15/19 18:02 Urine WBC (Auto) 1-5 /hpf (0-5) 04/15/19 18:02 Urine RBC (Auto) 0-4 /hpf (0-4) 04/15/19 18:02 U Hyaline Cast (Auto) 1-5 /lpf (0-5) 04/15/19 18:02 U Epithel Cells (Auto) 5-10 /lpf (0-5) H 04/15/19 18:02 Urine Bacteria (Auto) Negative (Negative) 04/15/19 18:02 Electrocardiogram Date: 06/19/18 Findings: + NSR @ (61) and + NSST changes
[2019-04-15] MEDS ORDERED: fentaNYL citrate 100 MCG/2 ML VIAL ONE (21:05)
--- NOTE | 2019-04-15 21:38 | Emergency Department Note ---
Entered by Rick Islas acting as a scribe for Bryn Mccall DO History of Present Illness General Chief complaint: Abdominal Pain Stated complaint: AB PAIN History of Present Illness Provider complaint: Abdominal pain Onset (ago): hour(s) 7 Location: abdomen and right Radiation: non-radiation Pain Consistency: + constant Maximum Pain Intensity: 1 Current Pain Intensity: 1 Quality: + sharp Relieved By: + none Exacerbated By: + movement Associated symptoms: + nausea/vomiting (No vomiting) and + other (Negative urinary symptoms) The patient is a 73 year old male who presents to the Emergency Room with complaints of constant right lower quadrant abdominal pain that started today about 7 hours ago. The patient states that the pain is sharp but currently on rates it a 1/10, however it is worse with standing or movement. The patient saw his PCP earlier today and was sent here to rule out appendicitis. He notes that he has some nausea, but denies any vomiting or urinary symptoms. The patient has history of gallstones and diverticulitis but still his appendix. The only surgical history the patient has is a left lower lobe lung resection that he had done to treat cancer. The patient denies any change in bowel movements, testicular pain or penile pain. Home Medications Home Medications Medication Instructions Recorded Confirmed Type ergocalciferol (vitamin D2) 50,000 unit PO MONTHLY 06/18/18 04/15/19 History [Vitamin D2] finasteride 5 mg tablet 5 mg PO QAM #30 tab 02/22/19 04/15/19 Rx tamsulosin 0.4 mg capsule 0.4 mg PO QPM #90 cap 02/22/19 04/15/19 Rx lorazepam 1 mg PO HS 04/15/19 04/15/19 History oxcarbazepine 600 mg PO HS 04/15/19 04/15/19 History oxcarbazepine [Trileptal] 300 mg PO QAM 04/15/19 04/15/19 History rosuvastatin [Crestor] 20 mg PO QAM 04/15/19 04/15/19 History Allergies Allergy/AdvReac Type Severity Reaction Status Date / Time Penicillins Allergy Unknown A CHILD Verified 02/27/19 11:02 COULD NOT TAKE Past Med/Surg History Medical History Abdominal aneurysm AAA 3.6cm in axial diameter (previously 2.7cm on 2011 imaging) Bipolar disorder Chronic lymphocytic leukemia avg WBC ~ 18 History of diverticulitis Hyperlipidemia Hypertension Kidney cysts noted on 06/05/18 MRI Kidney disease STAGE 3/DR MITCHELL Lung nodule LEFT Pre-diabetes Surgical History S/P lobectomy of lung Left lower Hx of colonoscopy Hx of endoscopy UPPER Hx of oral surgery Family History Other Family history non-contributory Social History Preferred Language: Spanish Communication Ability: Effective Visual Impairment: No Limitations Beliefs That Will Affect Care: Orthodox Orthodox Beliefs: FAITH marital status: Current Living Situation: Spouse Feels Safe at Home: Yes Smoking Status: Former smoker Cigarettes Per Day: 50 PACK YEARS Hx Alcohol Use: No Hx Substance Use: No Seatbelt Use: always Review of Systems See HPI for pertinent positives & negatives. and A total of 10 systems reviewed and were otherwise negative Physical Exam Vital Signs Vital Signs - 24 hr 04/15/19 17:26 04/15/19 17:43 04/15/19 18:06 Temperature 36.8 C Temperature Source Oral Sepsis Recent Fever Within 48 Hours No Sepsis Action Taken by Nursing No Action Required Pulse Rate 73 68 Pulse Rate [Apical] Pulse Rate from SpO2 Sensor 67 Respiratory Rate 20 18 Respiratory Effort / Characteristics Non-Labored Spontaneous Respiratory Depth Normal Respiratory Pattern Regular Blood Pressure 134/84 146/83 H Blood Pressure [Right Arm] Blood Pressure Mean 100 104 Blood Pressure Mean [Right Arm] Pulse Oximetry 97 95 96 Oxygen Delivery Method Room Air Room Air Room Air 04/15/19 18:30 04/15/19 19:31 04/15/19 21:06 Temperature Temperature Source Sepsis Recent Fever Within 48 Hours Sepsis Action Taken by Nursing Pulse Rate 66 68 70 Pulse Rate [Apical] 75 Pulse Rate from SpO2 Sensor 67 68 Respiratory Rate 15 23 20 Respiratory Effort / Characteristics Respiratory Depth Respiratory Pattern Blood Pressure 139/79 156/94 H 169/94 H Blood Pressure [Right Arm] 156/94 H Blood Pressure Mean 99 114 Blood Pressure Mean [Right Arm] 114 Pulse Oximetry 97 97 97 Oxygen Delivery Method Room Air Room Air Room Air GENERAL: Sitting up in bed, alert, well appearing, well nourished, in moderate distress holding right abdomen, non-toxic EYE EXAM: normal conjunctiva. OROPHARYNX: no exudate, no erythema, lips, buccal mucosa, and tongue normal and mucous membranes are moist NECK: supple, no nuchal rigidity, no adenopathy, non-tender LUNGS: Clear to auscultation. Normal chest wall mechanics HEART: no murmurs, S1 normal and S2 normal ABDOMEN: abdomen soft, tenderness to palpation of the RLQ, normo-active bowel, sounds, no masses, no rebound or guarding. BACK: Back is symmetrical on inspection and there is no deformity, no midline tenderness, no CVA tenderness. SKIN: no rashes and no bruising UPPER EXTREMITIES: upper extremities are grossly normal. LOWER EXTREMITIES: No pitting edema. NEURO EXAM: Normal sensorium, cranial nerves II-XII grossly intact, normal speech, no gross weakness of arms, no gross weakness of legs. Course ED COURSE: Vital signs were reviewed and showed hypertension. The patients medical record was reviewed The above diagnostic studies were performed and reviewed. ED treatments and interventions as stated above. 0: The patient was evaluated in room B11B. A complete history and physical examination was performed. 1929: Upon reevaluation, the patient is resting in bed. I discussed my findings with the patient and he understands and agrees with the treatment plan. 193: I spoke to Dr. Sandeep Truong about the patient's case. He is going to be accepting the patient for further evaluation. Based on the patients age, coexisting illnesses, exam and lab findings the decision to treat as an inpatient was made. The patient remained stable while under my care. The patient will be evaluated for further management. Consultations Consultation #1: I spoke to Dr. Sandeep Truong about the patient's case. He is going to be accepting the patient for further evaluation. Time: 19:32 Administered Medications Discontinued Medications Sodium Chloride (Nss 1000ml) 1,000 mls @ 999 mls/hr IV .Q1H1M ONE Stop: 04/15/19 18:56 Last Infusion: 04/15/19 19:01 Dose: 0 mls/hr Documented by: [id number] Admin: 04/15/19 18:00 Dose: 999 mls/hr Documented by: [id number] Cefoxitin Sodium (Mefoxin) 2,000 mg in 60 mls @ 100 mls/hr IV NOW STA Stop: 04/15/19 20:05 Last Infusion: 04/15/19 20:49 Dose: 0 mls/hr Documented by: [id number] Admin: 04/15/19 20:13 Dose: 100 mls/hr Documented by: [id number] Ondansetron HCl (Zofran) 4 mg IV NOW STA Stop: 04/15/19 17:57 Last Admin: 04/15/19 18:04 Dose: 4 mg Documented by: [id number] Medical Decision Making Differential Diagnosis Differential diagnoses includes but is not limited to gastritis, peptic ulcer disease, GERD, gallbladder disease, pancreatitis, small bowel obstruction, acute coronary syndrome, pericarditis, ischemic bowel, irritable bowel disease, irritable bowel syndrome, appendicitis, diverticulitis, malignancy, hernia, urinary tract infection, torsion, perforation, trauma, infectious. Medical Records Attestation: I reviewed the patient's medical records. Home Medications Current Medication List: was personally reviewed by me Laboratory Data Attestation: I reviewed the patient's lab results. Result diagrams: 04/15/19 17:15 04/15/19 17:15 Lab Results 04/15/19 04/15/19 04/15/19 Range/Units 17:15 17:15 18:02 WBC 24.45 H (4.8-10.8) K/uL RBC 4.18 L (4.7-6.1) M/uL Hgb 13.1 L (14.0-18.0) g/dL Hct 38.6 L (42-52) % MCV 92.3 (80-100) fL MCH 31.3 (25-34) pg MCHC 33.9 (32-36) g/dL RDW Std Deviation 46.4 H (36.4-46.3) fL RDW Coeff of Stephen 13.9 (11.5-14.5) % Plt Count 156 (130-400) K/uL MPV 10.9 H (7.4-10.4) fL Immature Gran % (Auto) 0.2 % Neut % (Auto) 42.2 % Lymph % (Auto) 52.1 % [place] % (Auto) 4.8 % Eos % (Auto) 0.5 % Baso % (Auto) 0.2 % Immature Gran # (Auto) 0.04 H (0.00-0.02) K/uL Neut # (Auto) 10.32 H (1.4-6.5) K/uL Lymph # (Auto) 12.74 H (1.2-3.4) K/uL [place] # (Auto) 1.18 H (0.11-0.59) K/uL Eos # (Auto) 0.13 (0-0.5) K/uL Baso # (Auto) 0.04 (0-0.2) K/uL Sodium 139 (136-145) mmol/L Potassium 4.7 (3.5-5.1) mmol/L Chloride 109 H (98-107) mmol/L Carbon Dioxide 22 (21-32) mmol/L Anion Gap 8.0 (3-11) BUN 48 H (7-18) mg/dl Creatinine 3.01 H (0.6-1.4) mg/dl Est Cr Clr Drug Dosing 23.1 ml/min Est GFR ( Amer) 22.7 Est GFR (Non-Af Amer) 19.6 BUN/Creatinine Ratio 16.0 (10-20) Glucose 101 H (70-99) mg/dl Calcium 8.8 (8.5-10.1) mg/dl Total Bilirubin 0.4 (0.2-1) mg/dl AST 23 (15-37) U/L ALT 29 (12-78) U/L Alkaline Phosphatase 54 (45-117) U/L Total Protein 7.1 (6.4-8.2) gm/dl Albumin 4.1 (3.4-5.0) gm/dl Globulin 3.0 (2.5-4.0) gm/dl Albumin/Globulin Ratio 1.4 (0.9-2) Lipase 646 H (73-393) U/L Urine Color Yellow Urine Appearance Clear (Clear) Urine pH 5.0 (4.5-7.5) Ur Specific [place] 1.024 (1.000-1.030) Urine Protein 3+ H (Negative) Urine Glucose (UA) Negative (Negative) Urine Ketones Negative (Negative) Urine Blood Negative (Negative) Urine Nitrite Negative (Negative) Urine Bilirubin Negative (Negative) Urine Urobilinogen Negative (Negative) Ur Leukocyte Esterase Negative (Negative) Urine WBC (Auto) 1-5 (0-5) /hpf Urine RBC (Auto) 0-4 (0-4) /hpf U Hyaline Cast (Auto) 1-5 (0-5) /lpf U Epithel Cells (Auto) 5-10 H (0-5) /lpf Urine Bacteria (Auto) Negative (Negative) Imaging Data Radiologist's Impression: Radiology results as stated below per my review and the radiologist's interpretation: CT SCAN OF THE ABDOMEN AND PELVIS WITHOUT IV CONTRAST CLINICAL HISTORY: Right lower quadrant abdominal pain. COMPARISON STUDY: Abdominal CT dated 11/07/2009. PET/CT dated 06/11/2018. TECHNIQUE: CT scan of the abdomen and pelvis is performed from the lung bases to the proximal femora. Images are reviewed in the axial, sagittal, and coronal planes. IV contrast was not administered for this examination as per the referring clinician. Note that the examination was performed in significantly suboptimal fashion without oral and IV contrast. A dose lowering technique was utilized adhering to the principles of ALARA. CT DOSE: 682.73 mGy.cm FINDINGS: Lung bases: The heart is normal in size and without pericardial effusion. Post operative change is noted at the left lung base. There is left basilar scarring/atelectasis. No airspace consolidation or pleural effusion is identified. Liver: The unenhanced liver is normal in size, contour, and attenuation. There is no intrahepatic biliary ductal dilatation. Gallbladder: There are calcified gallstones, with no CT evidence of acute cholecystitis. Spleen: Normal in size and attenuation. Pancreas: The unenhanced pancreas is moderately atrophic and grossly unremarkable. Adrenal glands: Unremarkable. Kidneys: The unenhanced kidneys are atrophic and without hydronephrosis. There are no renal calculi identified. Renal cysts measure up to 5.6 cm. Additional complex/hyperdense renal cysts are noted. These are similar to previous. An indeterminant 2.0 cm lesion in the anterior interpolar right kidney as seen on image #179. Abdominal vasculature: There is advanced atherosclerotic calcification and ectasia of the abdominal aorta. An aneurysm of the distal abdominal aorta measures 3.5 x 3.9 cm (AP x transverse). Bowel: There is advanced colonic diverticulosis without CT evidence of acute diverticulitis. No bowel obstruction is seen. Mild colonic fecal retention is ob served. The appendix is distended and fluid-filled, measuring up to 10 mm in diameter as seen on image #339. There is peritoneal inflammation, and findings are consistent with acute appendicitis. The appendix approaches a fat-containing right inguinal hernia. There is no organized fluid collection to suggest abscess. Peritoneum: There is no intraperitoneal free air or abdominal ascites. There is a small fat-containing umbilical hernia. Lymphadenopathy: None. Pelvic viscera: The prostate gland is enlarged and heterogeneous, measuring 5.9 cm in transverse diameter. There is median lobe hypertrophy. The bladder wall is thickened and trabeculated indicating chronic outlet obstruction. There are bilateral fat-containing inguinal hernias. Skeletal structures: The skeletal structures are osteopenic. There is mild lumbosacral spondylosis. No lytic or blastic lesions are seen. IMPRESSION: 1. Suboptimal examination without oral and IV contrast. 2. Findings are consistent with acute appendicitis. There is no evidence of abscess or perforation. Note that the tip of the appendix may be contained within a right inguinal hernia. 3. Cholelithiasis. 4. There is a 2.0 cm indeterminant lesion within the anterior interpolar right kidney. Follow-up with a nonemergent contrast-enhanced renal protocol CT or MRI is recommended for further assessment. 5. There is a 3.5 x 3.9 cm infrarenal abdominal aortic aneurysm. 6. Advanced colonic diverticulosis without CT evidence of acute diverticulitis. 7. Additional findings as above. Electronically signed by: Max Maya M.D. 04/15/2019 7:21 PM Blood Pressure Blood Pressure Findings: Normal blood pressure MDM Narrative Patient is a 73-year-old male presents the ER for right lower quadrant abdominal pain associate with nausea. Pain started just prior to arrival about 2 hours ago. IV was established blood work was obtained and showed a leukocytosis of 24,000. Hemoglobin at 13. BMP with a creatinine of 3 consistent with previous. LFTs bilirubin is unremarkable. Lipase slightly elevated at 640. UA was unremarkable. Patient declined pain medications. He was given cefoxitin and IV fluids. CT abdomen pelvis confirmed acute appendicitis. Discussed with the general surgeon and he was admitted for acute appendicitis. Impression & Plan Acute appendicitis, CKD (chronic kidney disease), Leukocytosis Discharge Plan Visit Data *Final* Discharge Date/Time: 04/15/19 21:06 Chief Complaint: Abdominal Pain Stated Complaint: AB PAIN ED Provider: Bryn Mccall Discharge Problem: Acute appendicitis, CKD (chronic kidney disease), Leukocytosis Patient Disposition: Admitted As Inpatient Discharge Instructions Interventions: ED Discharge Assessment Last Done: 04/15/19 21:06 The scribe's documentation has been prepared under my direction and personally reviewed by me in its entirety. I confirm that the note above accurately reflects all work, treatment, procedures, and medical decision making performed by me.
[2019-04-15] MEDS ORDERED: LABETALOL HCL IV 5 MG/ML 20ML IV PRN (21:46)
[2019-04-15] MEDS ORDERED: ONDANSETRON INJ 2 MG/ML 2 ML VIAL IV PRN ×2 (21:46→23:30)
[2019-04-15] MEDS ORDERED: ATROPINE SULFATE 0.1 MG/ML 10ML SYR IV PRN (21:46)
[2019-04-15] MEDS ORDERED: HYDROmorphone INJ 1 MG/ML SYRINGE IV PRN (21:46)
--- NOTE | 2019-04-15 22:34 | Post Operative Brief Note ---
Immediate Post Op Note v1 Date of Surgery April 15, 2019 Pre & Post Diagnosis Operation Date: 04/15/19 21:00 Pre-Op Diagnosis: Acute Appendicitis Post-Op Diagnosis: Acute Appendicitis Procedure Operation Date: 04/15/19 21:00 Actual Procedures p Laparoscopic Appendectomy(Not Applicable) - Lan Hopkins MD Surgeon Lan Hopkins MD General Office Associate None Estimated Blood Loss 5 Findings Consistent with Post-Op Diagnosis Specimens Appendix Drains Torres Catheter (Inserted by Joy Pritchard RN) Complications none
[2019-04-15] MEDS ORDERED: PROPOFOL IV EMULSION 10 MG/ML 20 ML VIAL IV ONE (22:46)
[2019-04-15] MEDS ORDERED: NEOSTIGMINE METHYLSULFATE 5 MG/5 ML SYR ONE (22:46)
[2019-04-15] MEDS ORDERED: GLYCOPYRROLATE 0.2 MG/ML VIAL ONE (22:46)
[2019-04-15] MEDS ORDERED: CISATRACURIUM BESYLATE IV SOLN 2 MG/ML 10 ML VIAL IV ONE (22:46)
[2019-04-15] MEDS ORDERED: LIDOCAINE HCL 2% 2 ML VIAL/AMP(20MG/ML) INFIL ONE (22:46)
[2019-04-15] MEDS ORDERED: ONDANSETRON INJ 2 MG/ML 2 ML VIAL ONE (22:46)
--- NOTE | 2019-04-15 23:05 | Anesthesiology Progress Note ---
Date of Service April 15, 2019 Anesthesia Post Procedure Vital Signs Vital Signs: Temp Pulse Pulse Resp BP BP Pulse Ox 04/15/19 23:00 59 L 20 146/81 H 100 04/15/19 22:50 60 16 140/87 100 04/15/19 22:40 36.4 C L 67 20 158/83 H 100 04/15/19 21:06 70 20 169/94 H 97 04/15/19 19:31 68 75 23 156/94 H 156/94 H 97 04/15/19 18:30 66 15 139/79 97 04/15/19 18:06 68 18 146/83 H 96 04/15/19 17:43 95 04/15/19 17:26 36.8 C 73 20 134/84 97 Pain Intensity Right Lower Abdomen: Pain Intensity: 1 Transfer of Care Handoff Completed per policy Notes Mental Status: alert / awake / arousable Patient Amnestic to Procedure: Yes Nausea / Vomiting: adequately controlled Pain: adequately controlled Airway Patency, RR, SpO2: stable & adequate BP & HR: stable & adequate Hydration State: stable & adequate Anesthetic Complications: no major complications apparent
[2019-04-15] MEDS ORDERED: OXYCODONE/ACETAMINOPHEN 5mg/325mg TAB PO PRN (23:30)
[2019-04-15] MEDS ORDERED: MoRPHine SULFATE 4 MG/ML 1 ML CARP\\VIAL IV PRN (23:30)
[2019-04-15] MEDS: SODIUM CHLORIDE 0.9% 1000ML 1,000 ML IV SCH (23:46)
--- NOTE | 2019-04-16 02:37 | Operative Report ---
DATE OF OPERATION: 04/15/2019 PREOPERATIVE DIAGNOSIS: Appendicitis. POSTOPERATIVE DIAGNOSIS: Appendicitis. PROCEDURE: Laparoscopic appendectomy. SURGEON: Lan Hopkins MD FINDINGS: The distal four fifths of the appendix was firm, hyperemic, and had some white exudate. The base of the appendix was normal. The visible bowel was normal including the cecum at the base of the appendix. There was no evidence of perforation or abscess. The patient did have a small indirect right inguinal hernia. A CAT scan indicated the tip of the appendix may have been within the hernia, but after insufflation, it reduced the appendix back into the abdomen. TECHNIQUE: The patient was given a general anesthetic and the area was prepped and draped in the usual sterile fashion. A transverse incision was made below the umbilicus. He had a small umbilical hernia. The umbilical hernia sac was off the skin of the overlying umbilicus. It was then freed around the entire circumference and amputated. The fascial opening from the hernia was used to place the introducer bluntly. The abdomen was then insufflated to a pressure of 15 mmHg with carbon dioxide. The lower midline introducer was placed under direct vision through a small skin incision. The patient was placed in Trendelenburg and airplane left position. The small bowel was retracted over to the left side of the abdomen exposing the appendix that was extending off the inferior aspect of the cecum. It was freed from the abdominal wall. The left lower quadrant introducer was then placed under direct vision. Traction was placed anteriorly on the appendix. The base was easily identified. The mesoappendix was away from the base using blunt dissection. The mesoappendix was divided using the Endo-ALEJANDRA stapler. There was a small amount of oozing from the mesenteric staple line and this was controlled with 2 clips. There was no further oozing. The appendix was then amputated away from the cecum using the Endo-ALEJANDRA. The appendix was placed into an Endobag and brought out through the left lower quadrant introducer site. That introducer was replaced. The right lower quadrant was then investigated. It was irrigated, the irrigation removed. Any blood that had come out during the period of oozing was easily removed. The staple line on the mesoappendix and on the cecum were identified and there was no further oozing. The right lower quadrant was irrigated. The irrigation was removed. Any irrigation that entered the right upper quadrant was removed and any irrigation in the pelvis was removed. The staple lines were inspected another time and there was no oozing. The gas was allowed to escape and introducers were removed. The fascia of the umbilical and left lower quadrant introducer sites was closed with interrupted 0 Vicryl and the skin of all the incisions was closed with 4-0 Monocryl in either an interrupted or running subcuticular fashion. The skin was anesthetized with 0.5% Marcaine. The skin was cleansed, dried, benzoin placed, Steri-Strips applied. The estimated blood loss was 5 mL. Sponge, needle, and instrument counts were correct prior to closure. The patient tolerated the surgical procedure without complication and was transferred to recovery. I attest to the content of the Intraoperative Record and any orders documented therein. Any exception s are noted below.
[2019-04-16] MEDS ORDERED: FINASTERIDE 5 MG TAB PO SCH (09:00)
[2019-04-16] MEDS ORDERED: OXcarbazepine 150 MG TABLET PO SCH ×2 (09:00→21:00)
[2019-04-16] MEDS ORDERED: ROSUVASTATIN CALCIUM 20 MG TAB PO SCH (09:00)
[2019-04-16] MEDS: SODIUM CHLORIDE 0.9% 1000ML 1,000 ML IV SCH (09:44)
--- NOTE | 2019-04-16 16:20 | Surgery Progress Note ---
Date of Service April 16, 2019 Assessment & Plan (1) Acute appendicitis: POD # 1 s/p laparoscopic appendectomy - vitals stable - afebrile - no n/v - no post op pain - adequate urine output despite some difficulty urinating per patient given that he has not had Flomax last night Plan: Okay for discharge discharge instructions reviewed Rx for Percocet prn pain f/u 2 weeks resume home medications including Flomax tonight Dr. Hopkins has seen and examined pt, agrees with above. Subjective no abdominal pain no nausea or vomiting tolerated regular diet some difficulty urinating but still able to urinate, did not take Flomax last night walking room, not hallways Physical Exam Constitutional: WD/WN, vitals as above no acute distress Respiratory: normal respiratory effort; no respiratory distress Gastrointestinal (Abdomen): Inspection/Auscultation: abdomen normal to inspection; abdomen not distended Percussion/Palpation: + abdomen tender (at incision sites) and abdomen soft; no guarding and abdomen not rigid Skin: no rashes, warm and dry + incision (clean/dry/intact with steri strips present) Psychiatric: A+Ox3, euthymic affect Results & Data Vital Signs (Past 12 Hours) Vital Signs Temp Pulse Pulse Resp BP Pulse Ox 04/16/19 15:34 36.6 C 61 78 20 164/89 H 96 04/16/19 15:06 36.6 C 78 20 164/89 H 96 04/16/19 07:07 36.5 C 74 16 161/79 H 95 (1) Acute appendicitis Acute appendicitis type: unspecified acute appendicitis type Qualified Code(s): K35.80 - Unspecified acute appendicitis
[2019-04-16] MEDS ORDERED: TAMSULOSIN HCL 0.4 MG CAP PO SCH (21:00)
--- NOTE | 2019-04-20 07:30 | Discharge Summary ---
Date of Service April 20, 2019 Admission HPI Per Admitting Provider This is a 73-year-old male who presented to the emergency room with a complaint of pain in the right lower quadrant just above the inguinal crease. It began about 10:00 this morning. The pain began in that area and has remained there. It does not radiate to the left or into the upper abdomen and does not radiate around to his. It is sharp in character and is exacerbated by motion. He is never had pain like this before. This is not accompanied by nausea or vomiting. He has not had fever or chills. His bowels move regularly without diarrhea, constipation, melena or hematochezia. He denies dysuria and hematuria. He is never had previous abdominal surgery. Principal Diagnosis Acute appendicitis Discharge Data Allergies Allergy/AdvReac Type Severity Reaction Status Date / Time Penicillins Allergy Unknown A CHILD Verified 02/27/19 11:02 COULD NOT TAKE Consultations 04/15/19 19:35 ED Decision to Admit Stat Procedures Performed Operation Date: 04/15/19 21:00 Actual Procedures p Laparoscopic Appendectomy(Not Applicable) - Lan Hopkins MD Ordered Studies 04/15/19 18:18 CT abd pelvis wo con Stat Hospital Course (1) Acute appendicitis: Patient was taken to operating room for laparoscopic appendectomy possible open by Dr. Hopkins. Patient found to have acute appendicitis without perforation or abscess. Patient tolerated procedure well and was transferred to recovery room and then to medical/surgical floor for postoperative care. Started on IV fluids, PO Percocet with IV moprhine prn pain, IV ZOfran prn nasuea, diet as tolerated, activity as tolerated, and incentive spirometry. Patient's home medications were continued for POD # 1. POD # 1 vitals stable, afebrile, no post op pain, had some difficulty urinating but adequate urine output. Was not given his Flomax night of surgery. Patient was discharged home on POD # 1 in stable condition. Total Time Total Time Spent Total Time Spent (In Minutes): 30 Total Time Includes: Examination of the Patient, Discharge Planning and Medication Reconciliation Discharge Plan Discharge Items Patient Disposition: Home - Self-Care Reason For Visit: APPENDICITIS Discharge Diagnosis: same Discharge Goals: Decrease discomfort and Improve function Activity: Per 'Additional Instructions' section Non-emergency contact: Primary Care Provider and Surgeon Call non-emergency contact if: your pain is not controlled, your pain is worsening, your pain is unusual for you, you have a fever, your temperature is above 101, your wound has increased redness, your wound has increased drainage and your wound pain has increased Follow-up/Referrals: Mery Solis CRNP [Primary Care Provider] - Diet: Regular Addtl Provider Instructions: Post-Surgical ~Discharge Instructions Activity Recommendations: - lifting limitation: (10 pounds for 2 weeks), - exercise/sex/sports limit: (nonstrenuous for 2 weeks), - driving or machine use limit: (none for 1 week), - Shower/bathe limit: (may shower beginning tomorrow) Diet: - Resume previous diet SPECIAL CARE INSTRUCTIONS: - May shower in 24 hours. Let water run over area and pat dry. - Leave steri strips on for one week. - Call the surgeon's office with any questions or concerns - - (ex. temperature higher than 101 degrees F, excessive bleeding or pain). MEDICATIONS: - Resume previous medications unless instructed otherwise by your surgeon. - Ibuprofen 600 mg every 6 hours with food - Percocet 1 every 4 hours, as needed for pain - Recommend OTC stool softener (Colace) daily while taking narcotic pain medication. Also recommend plenty of fluids, daily walking, and avoiding foods that constipate to help prevent constipation/straining. FOLLOW UP VISIT: - If not already scheduled, please call the office to schedule a two week follow-up appointment. Office number Prescriptions: Continued finasteride [Proscar] 5 mg tablet 5 mg PO QAM Qty: 30 RF: 0 tamsulosin [Flomax] 0.4 mg capsule 0.4 mg PO QPM Qty: 90 RF: 0 ergocalciferol (vitamin D2) [Vitamin D2] 50,000 unit Capsule 50,000 unit PO MONTHLY RF: 0 oxcarbazepine 300 mg tablet 600 mg PO HS RF: 0 lorazepam 1 mg tablet 1 mg PO HS RF: 0 oxcarbazepine [Trileptal] 300 mg tablet 300 mg PO QAM RF: 0 rosuvastatin [Crestor] 20 mg tablet 20 mg PO QAM RF: 0 Stand-Alone Forms: Call Back Authorization, [facility] Discharge Orders: Discharge Order (Routine); Ordered 04/16/19 Ordered By: Adelaide Dunne Admission Data Admit Date/Time: 04/15/19 22:48 Attending Provider: Lan Hopkins Admit Provider: Lan Hopkins Primary Care Provider: Mery Solis Other Providers: Lan Hopkins Service: Surgical Services Other Interventions: Discharge Summary Assessment (RN) Last Done: 04/16/19 15:34 Pending Studies at Discharge: Yes (appendix pathology, will be reviewed at follow-up visit) DC Date/Time DO NOT enter until pt leaves facility: 04/16/19 16:09
== END 2019-04-16 16:09 | disposition home or self-care (01) ==
LOC: ED 17:21 → ASU 21:06 → 3N 21:06

== ENCOUNTER 2024-04-07 10:29 | Inpatient (IN) ==
--- NOTE | 2024-04-07 10:45 | Emergency Department Note ---
ED Provider Note History of Present Illness Chief Complaint: Syncope Time Seen by Provider: 04/07/24 10:45 This is a 78-year-old male with CKD stage V recently started hemodialysis Saturday last session yesterday (Saturday), CLL, AAA, hypertension, accompanied by and [id number], who presents to the emergency department via EMS with a headache and neck pain secondary to a traumatic injury that occurred prior to arrival. The patient was outside near the pool. He tried to step up onto a step above where he was standing and he felt lightheaded and fell backwards and hit the back of his head off the concrete. His thinks he was out of it for several seconds but otherwise he did not lose consciousness. He was evaluated by EMS, placed in a c-collar, and transported to the emergency department. Currently the patient describes headache and neck pain. He denies any chest pain, shortness of breath, numbness or weakness in his upper or lower extremities, or abdominal pain. He did not have any chest pain or shortness of breath or palpitations prior to the fall. Patient's states that his amlodipine was recently switched to 10 mg from 5 mg, and he is not taking sodium bicarbonate or iron now. Has been doing well with dialysis. Per chart review tetanus was updated in 2017. Home Medications Medication Instructions Recorded Confirmed Type lorazepam 1 mg tablet 1 mg PO HS 04/15/19 03/25/24 History doxazosin 4 mg tablet 4 mg PO BID 03/07/23 03/25/24 History oxcarbazepine 300 mg tablet 300 mg PO BID 03/07/23 03/25/24 History (Trileptal) safety needles 25 gauge x 5/8" (BD #6 ea 03/22/23 03/25/24 Rx SafetyGlide Needle) syringe (disposable) 1 mL (BD #6 ea 03/22/23 03/25/24 Rx Syringe) sodium bicarbonate 650 mg tablet 650 mg PO BID 05/01/23 03/25/24 History rosuvastatin 10 mg tablet 10 mg PO DAILY #90 tabs 05/13/23 03/25/24 Rx ergocalciferol (vitamin D2) 1,250 50,000 unit PO MONTHLY #12 caps 06/06/23 03/25/24 Rx mcg (50,000 unit) capsule (Vitamin D2) amlodipine 10 mg tablet 10 mg PO DAILY #90 tabs 02/20/24 03/25/24 Rx polysaccharide iron complex 150 mg 150 mg PO BID 02/20/24 03/25/24 History iron capsule (Ferrex) tamsulosin 0.4 mg capsule 0.4 mg PO DAILY 02/20/24 03/25/24 History epoetin eris 20,000 unit/mL 20,000 unit subcut .weekly #4 mL 03/05/24 03/25/24 Rx injection solution furosemide 40 mg tablet 40 mg PO DAILY #30 tabs 03/23/24 03/25/24 Rx Allergies Allergy/AdvReac Type Severity Reaction Status Date / Time Penicillins Allergy Unknown A CHILD Verified 03/25/24 14:56 COULD NOT TAKE Past Med/Surg History Problem List CKD (chronic kidney disease), stage V Anemia HTN (hypertension), benign Pulmonary nodules Abnormal CT of the abdomen Encounter to discuss test results Kidney cysts noted on 06/05/18 MRI Chronic lymphocytic leukemia (Chronic) Hyperlipidemia (Chronic) Elevated PSA Abdominal aneurysm AAA 3.6cm in axial diameter (previously 2.7cm on 2011 imaging) Benign prostatic hyperplasia with elevated prostate specific antigen (PSA) (Chronic) Chronic obstructive pulmonary disease (Chronic) Hypertension NO MEDS CURRENTLY Medical History Elevated prostate specific antigen (PSA) SNHL (sensorineural hearing loss) Squamous cell carcinoma History of diverticulitis Pre-diabetes Surgical History S/p bilateral carotid endarterectomy History of appendectomy S/P lobectomy of lung Left [id number] CHEMO/NO [facility] Hx of endoscopy UPPER Hx of colonoscopy Hx of oral surgery Family History Other Family history non-contributory Denies family history of Ovarian cancer Prostate cancer Myocardial infarction Breast cancer Colorectal cancer Social History Smoking Status: Never smoker Cigarettes Per Day: 20; Second Hand Exposure: No; Do You Dip or Chew Tobacco: No; Hx Alcohol Use: No Hx Substance Use: No Preferred Language: Korean Communication Ability: Effective Communication Ability Comment: SOME HARD OF HEARING / NO HEARING AIDES Visual Impairment: No Limitations Patient Case Manager Required: No Beliefs That Will Affect Care: None marital status: Current Living Situation: Spouse current occupational status: employed and retired 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 [employer] How many Children do You have: 2 Feels Safe at Home: Yes Childhood Exposure to Second-Hand Smoke: No Diet: regular Diet Comment: avoids red meat caffeine: No Dental Care, Regularly: Yes Physical Activity Frequency: Daily Physical Activity Frequency Comment: Walking Seatbelt Use: always Sunscreen Use: Yes Assistive Devices: Glasses Physical Exam Vital Signs Vital Signs - 24 hr 04/07/24 10:33 04/07/24 10:35 04/07/24 10:35 Temperature 98.4 F Temperature Source Temporal Artery Scan Pulse Rate 68 70 Pulse Rate from SpO2 Sensor Respiratory Rate 18 27 H Respiratory Effort / Characteristics Non-Labored Spontaneous Respiratory Depth Normal Blood Pressure 152/75 H 152/75 H Blood Pressure Mean 100 82 Blood Pressure Position Right Lateral Pulse Oximetry 99 Oxygen Delivery Method Room Air Sepsis Recent Fever Within 48 Hours No Sepsis New/Unexplained Change in Mental Status No Sepsis Action Taken by Nursing No Action Required 04/07/24 10:43 04/07/24 10:57 04/07/24 11:00 Temperature Temperature Source Pulse Rate 71 76 Pulse Rate from SpO2 Sensor Respiratory Rate 20 Respiratory Effort / Characteristics Respiratory Depth Blood Pressure 143/69 H Blood Pressure Mean 110 Blood Pressure Position Pulse Oximetry Oxygen Delivery Method Sepsis Recent Fever Within 48 Hours Sepsis New/Unexplained Change in Mental Status Sepsis Action Taken by Nursing 04/07/24 11:09 04/07/24 11:13 04/07/24 12:15 Temperature Temperature Source Pulse Rate 68 70 Pulse Rate from SpO2 Sensor 63 68 Respiratory Rate 21 16 Respiratory Effort / Characteristics Respiratory Depth Blood Pressure Blood Pressure Mean Blood Pressure Position Pulse Oximetry 99 98 96 Oxygen Delivery Method Room Air Sepsis Recent Fever Within 48 Hours Sepsis New/Unexplained Change in Mental Status Sepsis Action Taken by Nursing 04/07/24 12:24 04/07/24 12:30 04/07/24 12:33 Temperature Temperature Source Pulse Rate 67 65 Pulse Rate from SpO2 Sensor 66 Respiratory Rate 12 13 Respiratory Effort / Characteristics Respiratory Depth Blood Pressure 126/63 Blood Pressure Mean 101 Blood Pressure Position Pulse Oximetry 99 96 Oxygen Delivery Method Sepsis Recent Fever Within 48 Hours Sepsis New/Unexplained Change in Mental Status Sepsis Action Taken by Nursing 04/07/24 13:15 Temperature Temperature Source Pulse Rate 71 Pulse Rate from SpO2 Sensor 65 Respiratory Rate 17 Respiratory Effort / Characteristics Respiratory Depth Blood Pressure Blood Pressure Mean Blood Pressure Position Pulse Oximetry 99 Oxygen Delivery Method Sepsis Recent Fever Within 48 Hours Sepsis New/Unexplained Change in Mental Status Sepsis Action Taken by Nursing CONSTITUTIONAL: Well developed, well nourished, mildly uncomfortable, otherwise pleasant HEAD: Mild amount of soft tissue swelling with an overlying superficial abrasion noted to the occipital scalp. Mild tenderness in this region. EYES: PERRL, conjunctivae normal, extraocular muscles intact. No nystagmus. EARS/NOSE/MOUTH/THROAT: External ears no injury, no hemotympanum, no drainage. Nose with no injury or epistaxis. No dental abnormalities. No oral injuries. NECK: There is reproducible tenderness in the mid to lower cervical spine. C- collar left in place. RESPIRATORY: Breathing unlabored and symmetric. Lungs clear to auscultation bilaterally. CARDIOVASCULAR: Regular rate and rhythm. No murmurs, rubs, or gallops. Right radial and bilateral DP pulses 2+ bilaterally. Left radial artery with a palpable fistula. CHEST: Nontender, no crepitus or ecchymosis. ABDOMEN: Normal bowel sounds. Soft, nontender. No masses or ecchymosis. No rigidity. No CVA tenderness bilaterally. MUSCULOSKELETAL: Moves bilateral upper and lower extremities at all joints without pain or difficulty. Back: There is reproducible mid to upper thoracic midline tenderness. No lumbar tenderness. Pelvis stable, nontender. Patient able to raise bilateral lower extremities off the stretcher. No focal tenderness in bilateral upper or lower extremities. SKIN: [place], warm, dry. NEUROLOGIC: Alert and oriented x 3. GCS 15. Gaze is conjugate. Speech is normal. Strength 5+ in bilateral upper and lower extremities. No sensory deficits in bilateral upper or lower extremities. PSYCHIATRIC: Appropriate. Normal affect. Course Administered Medications Discontinued Medications Acetaminophen 650 mg/ EMPTY (BAG) 65 mls @ 260 mls/hr IV NOW STA Stop: 04/07/24 11:13 Last Infusion: 04/07/24 12:55 Dose: Infused Documented By: Admin: 04/07/24 11:37 Dose: 260 mls/hr Documented By: CRISTHIAN Medical Decision Making Differential Diagnosis Fracture, intracranial hemorrhage, concussion, abrasion, neurovascular injury, dislocation, subluxation, hematoma, contusion, solid organ injury, electrolyte imbalance, GA, arrhythmia, dehydration, syncope, among other pathology Laboratory Data 04/07/24 10:30 04/07/24 10:30 Lab Results 04/07/24 04/07/24 04/07/24 Range/Units 10:30 10:40 12:46 WBC 5.00 (4.8-10.8) K/ul RBC 3.12 L (4.70-6.10) M/uL Hgb 9.2 L (14.0-18.0) g/dl POC Hgb 8.8 L (14.0-18.0) g/dl Hct 30.1 L (42.0-52.0) % POC Hct 26 L (42-52) % MCV 96.5 (80.0-100.0) fL MCH 29.5 (25.0-34.0) pg MCHC 30.6 L (32.0-36.0) g/dL RDW Std Deviation 49.0 H (36.4-46.3) fL RDW Coeff of Stephen 13.7 (11.5-14.5) % Plt Count 74 L (130-400) K/uL MPV 11.6 (9.4-12.4) fL Immature Gran % (Auto) 0.2 % Neut % (Auto) 49.0 % Lymph % (Auto) 38.0 % [place] % (Auto) 11.0 % Eos % (Auto) 0.8 % Baso % (Auto) 1.0 % Neut # (Auto) 2.45 (1.40-6.50) K/uL Lymph # (Auto) 1.90 (1.20-3.40) K/uL [place] # (Auto) 0.55 (0.11-0.59) K/uL Eos # (Auto) 0.04 (0.00-0.50) K/uL Baso # (Auto) 0.05 (0.00-0.20) K/uL Immature Gran # (Auto) 0.01 (0.01-0.20) K/uL PT 11.9 (9.0-12.0) Seconds INR 1.1 (0.9-1.1) APTT 30 (21-31) Seconds PTT Ratio 1.1 POC Sodium 137 (135-144) mmol/L Sodium 140 (136-145) mmol/L POC Potassium 4.4 (3.3-5.0) mmol/L Potassium 4.5 (3.5-5.1) mmol/L POC Chloride 100 L (101-112) mmol/L Chloride 105 (98-107) mmol/L Carbon Dioxide 28 (21-32) mmol/L POC Total CO2 26 (24-31) mmol/L Anion Gap 7 (3-11) POC Anion Gap 16.0 (16-25) mmol/L POC BUN 21 H (7-18) mg/dl BUN 20 (6-23) mg/dl Creatinine 4.69 H* (0.6-1.4) mg/dl POC Creatinine 5.1 H* (0.6-1.3) mg/dl Est Cr Clr Drug Dosing 12.4 ml/min Est GFR ( Amer) 12.8 ml/min Est GFR (Non-Af Amer) 11.1 ml/min BUN/Creatinine Ratio 4.3 L (10-20) Glucose 118 H (70-99(Fasting)) mg/dl POC Glucose (other) 112 H (70-99) mg/dl Calcium 8.2 L (8.6-10.3) mg/dl POC Ioniz Calcium Karyn 1.07 L (1.12-1.32) mmol/l Magnesium 2.0 (1.7-2.4) mg/dl Total Bilirubin 0.5 (0.2-1.0) mg/dl AST 18 (13-39) U/L ALT 6 L (7-52) U/L Alkaline Phosphatase 109 H (34-104) U/L Troponin I High Sens 78.6 H* 65.9 H* D (0-20) pg/ml Total Protein 5.2 L (6.0-8.3) gm/dl Albumin 3.3 L (3.4-5.0) gm/dl Globulin 1.9 L (2.5-4.0) gm/dl Albumin/Globulin Ratio 1.7 (0.9-2) Imaging Data Radiologist's Impression: Cervical Spine CT 04/07/24 11:03 CT OF THE CERVICAL SPINE WITHOUT CONTRAST CLINICAL HISTORY: fall, occipital head injury, lower cervical tender COMPARISON STUDY: PET/CT June 11, 2018. TECHNIQUE: Helical axial images of the cervical spine were obtained without IV contrast. Sagittal and coronal reconstructions were viewed. Automated exposure control was utilized for the study. A dose lowering technique was utilized adhering to the principles of ALARA. FINDINGS: Alignment of the cervical spine is anatomic. Vertebral body heights are maintained. No acute cervical spine fracture or subluxation is present. There is no prevertebral edema. Facet joints are intact. Moderate multilevel disc space narrowing, endplate osteophytosis and facet arthrosis is present. Prominent bilateral cervical lymph nodes are similar to prior PET/CT. These are likely benign. 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 IMPRESSION: No acute cervical spine fracture or subluxation. ACT 112: Negative or not required by law. Electronically signed by: David Zaragoza M.D. 04/07/2024 12:[address] 04/07/24 11:03 CT head/brain wo con CLINICAL HISTORY: 78 years-old Male with occipital head injury. Acute head trauma TECHNIQUE: Multiple axial CT images of the head were obtained without contrast. A dose lowering technique was utilized adhering to the principles of ALARA. COMPARISON: CT cervical spine of same day FINDINGS: No acute intracranial hemorrhage, midline shift, intracranial mass, hydrocephalus, territorial ischemia or abnormal extra-axial collection. Involutional changes with chronic microvascular ischemic disease. 9 mm hypodense focus of the left thalamus on image 15 series 2. The calvarium is intact. Mastoid air cells are clear. Minimal mucosal thickening of the paranasal sinuses. There is a small midline occipital scalp contusion with laceration. IMPRESSION: 1. No acute posttraumatic intracranial abnormality or calvarial fracture. 2. Posterior scalp contusion with laceration. 3. 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 ACT 112: Negative or not required by law. The above report was generated using voice recognition software. It may contain grammatical, syntax or spelling errors. Electronically signed by: Delfino Dolan M.D. 04/07/2024 12:[address] 04/07/24 11:[address] DOSE: HISTORY: fall, upper thoracic tender TECHNIQUE: Multiaxial CT images of the thoracic spine were performed and reformatted in the sagittal and coronal plane without the use of contrast. A dose lowering technique was utilized adhering to the principles of ALARA. COMPARISON: Chest CT 04/07/2024. FINDINGS: Small right and trace left pleural effusions. No fracture or subluxation within the thoracic spine. Paravertebral soft tissues are unremarkable. No significant central canal narrowing by CT technique. No pneumothorax. Mild degenerative disc disease throughout the majority of the thoracic spine. IMPRESSION: No fractures within the thoracic spine. ACT 112: Negative or not required by law. Electronically signed by: Anthony Christine M.D. 04/07/2024 12:58 PM Abdomen/Pelvis CT 04/07/24 11:33 CT OF THE ABDOMEN AND PELVIS WITHOUT CONTRAST CLINICAL HISTORY: fall backwards head injury back pain COMPARISON STUDY: CT of the abdomen and pelvis April 15, 2019. Renal ultrasound March 12, 2022. TECHNIQUE: Axial images of the abdomen and pelvis were obtained without IV contrast. Images were reviewed in the axial, sagittal, and coronal planes. Automated exposure control was utilized for the study. A dose lowering technique was utilized adhering to the principles of ALARA. FINDINGS: Please note that the chest CT will be reported separately. There is decreased attenuation of the cardiac blood pool. There are small right and trace left pleural effusions. No hemoperitoneum or pneumoperitoneum is present. There is moderate abdominal and pelvic ascites. The liver is cirrhotic. The spleen is moderately enlarged. Right colon wall thickening is likely related to portal hypertension. No evidence for traumatic injury to the solid abdominal viscera on unenhanced exam. Adrenal glands and pancreas are unremarkable. There are numerous water attenuation bilateral renal lesions. These are suboptimally assessed on this unenhanced exam but favor cysts. Hypodense lesions are indeterminate but similar to prior CT and likely reflect hyperdense cysts. There is colonic diverticulosis. No evidence for acute diverticulitis. No evidence for a bowel obstruction. There is no retroperitoneal hematoma. There is ascites within bilateral inguinal hernias, left larger than right. A 5.8 x 4.7 cm infrarenal abdominal aortic aneurysm has significantly increased in caliber since CT of April 15, 2019. There is no evidence for rupture. The left common iliac artery is also aneurysmally dilated, measuring 2.4 cm. No acute lumbar spine, pelvic or hip fracture is present. Prominent retroperitoneal lymph nodes are likely benign. There are gallstones within the gallbladder. The prostate is enlarged, measuring 6 cm in transverse diameter. No hydronephrosis. IMPRESSION: 1. No acute traumatic findings within the abdomen or pelvis on unenhanced exam. No acute fractures. 2. Significant increase in caliber of a 5.8 x 4.7 cm infrarenal abdominal aortic aneurysm since CT of April 15, 2019. Interval dilatation of the left common iliac artery. Nonemergent vascular surgery consultation is recommended. 3. Decreased attenuation of the cardiac blood pool which raises the possibility of anemia. 4. Cirrhosis with splenomegaly and moderate abdominal and pelvic ascites. Right colon wall thickening is likely related to portal hypertension. A nonspecific colitis could appear similar. 5. Extensive colonic diverticulosis. No evidence for acute diverticulitis. ACT 112: Negative or not required by law. Electronically signed by: David Zaragoza M.D. 04/07/2024 12:[address] 04/07/24 11:33 CT OF THE CHEST WITHOUT IV CONTRAST CLINICAL HISTORY: fall backwards, thoracic pain COMPARISON STUDY: Chest radiograph August 04, 2018. Chest CT March 15, 2020. CT DOSE: 3193.09 mGy.cm TECHNIQUE: Axial images of the chest were obtained without IV contrast. Images were reviewed in the axial, sagittal, and coronal planes. IV contrast was not administered for this examination. Automated exposure control was utilized for the study. A dose lowering technique was utilized adhering to the principles of ALARA. FINDINGS: Thoracic aorta is suboptimally assessed on unenhanced exam but no mediastinal hematoma is present. There is no pericardial effusion. Size of the heart is normal. Stable postoperative findings within the left lung. There is no thoracic lymphadenopathy. No acute rib or thoracic spine fracture is present. Small right and trace left pleural effusions are present. The pleural effusions are low attenuation. A 6 mm right upper lobe pulmonary nodule is unchanged and prior CT. This is benign given stability. The abdomen and pelvis CT will be reported separately. IMPRESSION: 1. No acute traumatic findings within the chest. 2. Small right and trace left pleural effusions. No pneumothorax. ACT 112: Negative or not required by law. Electronically signed by: David Zaragoza M.D. 04/07/2024 12:46 PM MDM Narrative This is a 78-year-old male with a history above who presents to the emergency department via EMS secondary to a traumatic injury that occurred prior to arrival. See above for further details. Patient mildly uncomfortable appearing but nontoxic. He has a tender abrasion to the occipital skull and reproducible tenderness in the midline cervical and upper thoracic spine. No additional areas of tenderness were elicited. Tdap is up-to-date. An IV was inserted and labs were obtained. Labs: Stable anemia hemoglobin 9.2. Mild thrombocytopenia at 74, has been trending slowly down recently. Coags are normal. No electrolyte disturbances. Creatinine 4.69 consistent with hemodialysis. Troponin is elevated at 78.6, likely secondary to end-stage renal disease however will repeat. Patient without any chest pain or shortness of breath currently. An order was placed for continuous cardiac monitoring at time of evaluation demonstrates sinus rhythm in the 70s with PVCs. EKG: Sinus rhythm with a rate of 69. Intervals within normal limits. PVC noted. No acute ST elevation. CT head, neck, chest abdomen pelvis and thoracic spine were obtained demonstrating scalp contusion, trace left and small right pleural effusions, 5.8 cm AAA, and age-indeterminate lacunar infarct. No additional traumatic injuries identified. Repeat troponin 65.9. Spoke with Dr. Nicole (vascular) who is following the patient's AAA. Per recent notes, last ultrasound demonstrated a 5.0 AAA from within the past several months. He states this will need to be repaired sooner rather than later as the most recent recommendation was to repeat the ultrasound 6 months from now but this will need repaired sooner. He states this does not need to be repaired with this hospital admission. Patient remained hemodynamically stable. Case was reviewed with ED attending Dr. Maria. As the patient appears to have had a syncopal or near syncopal episode with positive troponin with no priors to compare, we felt that admission was warranted. Patient is comfortable with this plan. I Spoke with the [facility] Daniel Miranda PA-C regarding the case who agrees to admit the patient for ongoing management. Discharge Plan Visit Data Chief Complaint: Syncope ED Provider: Malini Maria ED Midlevel Provider: Gian Rivera Forms Stand Alone Forms: [facility] Prescriptions Prescriptions: No Action sodium bicarbonate 650 mg tablet 650 mg PO BID rosuvastatin 10 mg tablet 10 mg PO DAILY Qty: 90 3RF Procrit 20,000 unit/mL solution 20,000 unit subcut .weekly Qty: 4 0RF Rx Instructions: Hold for Hgb 11 or greater. To be administered in providers office. Patient to bring own med to office. doxazosin 4 mg tablet 4 mg PO BID (DME) BD SafetyGlide Needle 25 gauge x 5/8" needle See Rx Instructions .Route Qty: 6 3RF Rx Instructions: As directed (DME) BD Syringe 1 mL syringe See Rx Instructions .Route Qty: 6 3RF Rx Instructions: As directed ergocalciferol (vitamin D2) [Vitamin D2] 1,250 mcg (50,000 unit) capsule 50,000 unit PO MONTHLY Qty: 12 0RF Rx Instructions: ON FIRST DAY OF THE MONTH polysaccharide iron complex [Ferrex 150] 150 mg iron capsule 150 mg PO BID tamsulosin 0.4 mg capsule 0.4 mg PO DAILY amlodipine 10 mg tablet 10 mg PO DAILY Qty: 90 1RF furosemide 40 mg tablet 40 mg PO DAILY Qty: 30 2RF lorazepam 1 mg tablet 1 mg PO HS oxcarbazepine [Trileptal] 300 mg tablet 300 mg PO BID Referrals Referrals: Anna Dhaliwal MD [Primary Care Provider] -
[2024-04-07 10:57] LABS: iSTAT Creatinine 5.1 mg/dl (0.6-1.3); iSTAT Hemoglobin 8.8 g/dl (14.0-18.0); iSTAT Ionized Calcium 1.07 mmol/l (1.12-1.32); iSTAT Potassium 4.4 mmol/L (3.3-5.0)
[2024-04-07 11:34] LABS: Albumin Globulin Ratio 1.7 (0.9-2); Albumin Level 3.3 gm/dl (3.4-5.0); BUN Creatinine Ratio 4.3 (10-20); Bilirubin,Total 0.5 mg/dl (0.2-1.0); Calcium 8.2 mg/dl (8.6-10.3); Creatinine Clr Calc Pharmacy 12.4 ml/min; Est GFR (African American) 12.8 ml/min; Est GFR (Non-African American) 11.1 ml/min; Globulin 1.9 gm/dl (2.5-4.0); Potassium 4.5 mmol/L (3.5-5.1); Total Protein 5.2 gm/dl (6.0-8.3)
[2024-04-07 11:36] LABS: Basophils # (auto) 0.05 K/uL (0.00-0.20); Eosinophils # (auto) 0.04 K/uL (0.00-0.50); Eosinophils % (auto) 0.8 %; Hematocrit (blood only) 30.1 % (42.0-52.0); Hemoglobin 9.2 g/dl (14.0-18.0); Immature Granulocytes # (auto) 0.01 K/uL (0.01-0.20); Immature Granulocytes % (auto) 0.2 %; Mean Corpuscular Hemoglobin 29.5 pg (25.0-34.0); Mean Corpuscular Hgb Conc 30.6 g/dL (32.0-36.0); Mean Corpuscular Volume 96.5 fL (80.0-100.0); Mean Platelet Volume 11.6 fL (9.4-12.4); Monocytes # (auto) 0.55 K/uL (0.11-0.59); Neutrophils # (auto) 2.45 K/uL (1.40-6.50); Platelet Count 74 K/uL (130-400); RDW Coefficient of Variation 13.7 % (11.5-14.5); Red Blood Count 3.12 M/uL (4.70-6.10)
[2024-04-07] MEDS: ACETAMINOPHEN 10MG/ML Custom 650 MG in EMPTY BAG 0 ML IV STA (11:37)
[2024-04-07 11:39] LABS: Troponin I High Sensitivity 78.6 pg/ml (0-20)
[2024-04-07 11:58] LABS: INR 1.1 (0.9-1.1); Partial Thromboplastin Ratio 1.1; Partial Thromboplastin Time 30 Seconds (21-31); Prothrombin Time 11.9 Seconds (9.0-12.0)
--- NOTE | 2024-04-07 11:58 | Electrocardiogram Report ---
Test Reason : Blood Pressure : / mmHG Vent. Rate : 069 BPM Atrial Rate : 069 BPM P-R Int : 172 ms QRS Dur : 086 ms QT Int : 390 ms P-R-T Axes : 051 060 064 degrees QTc Int : 417 ms Sinus rhythm with frequent Premature ventricular complexes Otherwise normal ECG When compared with ECG of 19-JUN-2018 11:06, Premature ventricular complexes are now Present T wave inversion no longer evident in Anterolateral leads Confirmed by Hector Rizvi ([id number]) on 04/07/2024 11:58:18 AM Referred By: Confirmed By:Hector Rizvi
--- NOTE | 2024-04-07 12:40 | CT Scan Report ---
CT OF THE CERVICAL SPINE WITHOUT CONTRAST CLINICAL HISTORY: fall, occipital head injury, lower cervical tender COMPARISON STUDY: PET/CT June 11, 2018. TECHNIQUE: Helical axial images of the cervical spine were obtained without IV contrast. Sagittal a nd coronal reconstructions were viewed. Automated exposure control was utilized for the study. A do se lowering technique was utilized adhering to the principles of ALARA. FINDINGS: Alignment of the cervical spine is anatomic. Vertebral body heights are maintained. No acut e cervical spine fracture or subluxation is present. There is no prevertebral edema. Facet joints are intact. Moderate multilevel disc space narrowing, endplate osteophytosis and facet arthrosis is pre sent. Prominent bilateral cervical lymph nodes are similar to prior PET/CT. These are likely benign. 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 IMPRESSION: No acute cervical spine fracture or subluxation. ACT 112: Negative or not required by law. Electronically signed by: David Zaragoza M.D. 04/07/2024 12:38 PM
--- NOTE | 2024-04-07 12:47 | CT Scan Report ---
CT OF THE CHEST WITHOUT IV CONTRAST CLINICAL HISTORY: fall backwards, thoracic pain COMPARISON STUDY: Chest radiograph August 04, 2018. Chest CT March 15, 2020. CT DOSE: 3193.09 mGy.cm TECHNIQUE: Axial images of the chest were obtained without IV contrast. Images were reviewed in the axial, sagittal, and coronal planes. IV contrast was not administered for this examination. Automat ed exposure control was utilized for the study. A dose lowering technique was utilized adhering to t he principles of ALARA. FINDINGS: Thoracic aorta is suboptimally assessed on unenhanced exam but no mediastinal hematoma is present. There is no pericardial effusion. Size of the heart is normal. Stable postoperative findings within the left lung. There is no thoracic lymphadenopathy. No acute rib or thoracic spine fracture is present. Small right and trace left pleural effusions are present. The pleural effusions are low a ttenuation. A 6 mm right upper lobe pulmonary nodule is unchanged and prior CT. This is benign given stability. The abdomen and pelvis CT will be reported separately. IMPRESSION: 1. No acute traumatic findings within the chest. 2. Small right and trace left pleural effusions. No pneumothorax. ACT 112: Negative or not required by law. Electronically signed by: David Zaragoza M.D. 04/07/2024 12:46 PM
--- NOTE | 2024-04-07 12:57 | CT Scan Report ---
CT OF THE ABDOMEN AND PELVIS WITHOUT CONTRAST CLINICAL HISTORY: fall backwards head injury back pain COMPARISON STUDY: CT of the abdomen and pelvis April 15, 2019. Renal ultrasound March 12, 2022. TECHNIQUE: Axial images of the abdomen and pelvis were obtained without IV contrast. Images were revi ewed in the axial, sagittal, and coronal planes. Automated exposure control was utilized for the dasha dy. A dose lowering technique was utilized adhering to the principles of ALARA. FINDINGS: Please note that the chest CT will be reported separately. There is decreased attenuation o f the cardiac blood pool. There are small right and trace left pleural effusions. No hemoperitoneum o r pneumoperitoneum is present. There is moderate abdominal and pelvic ascites. The liver is cirrhotic . The spleen is moderately enlarged. Right colon wall thickening is likely related to portal hyperten simi. No evidence for traumatic injury to the solid abdominal viscera on unenhanced exam. Adrenal gla nds and pancreas are unremarkable. There are numerous water attenuation bilateral renal lesions. Thes e are suboptimally assessed on this unenhanced exam but favor cysts. Hypodense lesions are indetermin ate but similar to prior CT and likely reflect hyperdense cysts. There is colonic diverticulosis. No evidence for acute diverticulitis. No evidence for a bowel obstruction. There is no retroperitoneal h ematoma. There is ascites within bilateral inguinal hernias, left larger than right. A 5.8 x 4.7 cm i nfrarenal abdominal aortic aneurysm has significantly increased in caliber since CT of April 15, 2019. There is no evidence for rupture. The left common iliac artery is also aneurysmally dilated, measuri ng 2.4 cm. No acute lumbar spine, pelvic or hip fracture is present. Prominent retroperitoneal lymph nodes are likely benign. There are gallstones within the gallbladder. The prostate is enlarged, measu ring 6 cm in transverse diameter. No hydronephrosis. IMPRESSION: 1. No acute traumatic findings within the abdomen or pelvis on unenhanced exam. No acute fractures. 2. Significant increase in caliber of a 5.8 x 4.7 cm infrarenal abdominal aortic aneurysm since CT of April 15, 2019. Interval dilatation of the left common iliac artery. Nonemergent vascular surgery con sultation is recommended. 3. Decreased attenuation of the cardiac blood pool which raises the possibility of anemia. 4. Cirrhosis with splenomegaly and moderate abdominal and pelvic ascites. Right colon wall thickening is likely related to portal hypertension. A nonspecific colitis could appear similar. 5. Extensive colonic diverticulosis. No evidence for acute diverticulitis. ACT 112: Negative or not required by law. Electronically signed by: David Zaragoza M.D. 04/07/2024 12:55 PM
--- NOTE | 2024-04-07 12:58 | CT Scan Report ---
CT head/brain wo con CLINICAL HISTORY: 78 years-old Male with occipital head injury. Acute head trauma TECHNIQUE: Multiple axial CT images of the head were obtained without contrast. A dose lowering tech nique was utilized adhering to the principles of ALARA. COMPARISON: CT cervical spine of same day FINDINGS: No acute intracranial hemorrhage, midline shift, intracranial mass, hydrocephalus, territorial ischem ia or abnormal extra-axial collection. Involutional changes with chronic microvascular ischemic disea se. 9 mm hypodense focus of the left thalamus on image 15 series 2. The calvarium is intact. Mastoid air cells are clear. Minimal mucosal thickening of the paranasal si nuses. There is a small midline occipital scalp contusion with laceration. IMPRESSION: 1. No acute posttraumatic intracranial abnormality or calvarial fracture. 2. Posterior scalp contusion with laceration. 3. 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 ACT 112: Negative or not required by law. The above report was generated using voice recognition software. It may contain grammatical, syntax o r spelling errors. Electronically signed by: Delfino Dolan M.D. 04/07/2024 12:56 PM
--- NOTE | 2024-04-07 13:00 | CT Scan Report ---
THORACIC SPINE CT CT DOSE: HISTORY: fall, upper thoracic tender TECHNIQUE: Multiaxial CT images of the thoracic spine were performed and reformatted in the sagittal and coronal plane without the use of contrast. A dose lowering technique was utilized adhering to e principles of ALARA. COMPARISON: Chest CT 04/07/2024. FINDINGS: Small right and trace left pleural effusions. No fracture or subluxation within the thoraci c spine. Paravertebral soft tissues are unremarkable. No significant central canal narrowing by CT te chn[place]. No pneumothorax. Mild degenerative disc disease throughout the majority of the thoracic spin e. IMPRESSION: No fractures within the thoracic spine. ACT 112: Negative or not required by law. Electronically signed by: Anthony Christine M.D. 04/07/2024 12:58 PM
--- NOTE | 2024-04-07 13:57 | History & Physical Report ---
Date of Service April 07, 2024 Assessment & Plan (1) Episode of syncope: Plan: Admit to med telemetry Currently stable and nontoxic-appearing Presented to the [facility] ED via EMS after sustaining a syncopal episode while going up the steps of their aboveground pool Patient did feel lightheaded shortly before losing consciousness but denies any other symptoms before losing consciousness Did hit the posterior aspect of his head on the concrete and lost consciousness for 5-6 seconds per his , quickly regained consciousness without confusion after CT of the head and brain without contrast notes a posterior scalp hematoma with laceration but is without signs of acute intracranial hemorrhage or acute infarction EKG shows sinus rhythm with frequent PVCs but is otherwise without acute findings/changes At this time his syncopal episode is likely due to a combination of orthostasis from recently increased dose of amlodipine from 5 mg to 10 mg and recently starting hemodialysis with his last session being 04/06/2024 Will reduce his dose of amlodipine back to 5 mg daily for now Fall precautions have been ordered Bilateral SCDs for DVT prophylaxis Heart healthy/renal dialysis diet AM CBC, CMP, mag, PT/INR (2) End stage renal disease on dialysis: Plan: Patient started dialysis over the past week Has had a total of 4 dialysis sessions, on a MWF schedule with last session on 04/06/2024 Renal function electrolytes are stable today Nephrology has been consulted to assist with coordination of hemodialysis while patient is admitted Avoid nephrotoxic agents, monitor daily renal function and electrolytes (3) Infarction of left thalamus: Plan: CT of the head and brain without contrast today shows an age-indeterminate subcentimeter left famished lacunar infarct Patient is deny previous known history of CVA Will start with MRI of the brain without contrast for further assessment as we should hold CT contrast today with his end-stage renal disease status Will obtain MR a of without contrast and bilateral carotid Dopplers for further assessment Will also obtain TTE Monitor a.m. hemoglobin A1c and fasting lipid panel Will continue home statin and wait for further workup and till starting antiplatelet therapy (4) Elevated troponin: Plan: Initial high-sensitivity troponin level of 78, 2-hour repeat down to 65 Patient denies recent chest discomfort, no acute ST segment or T wave changes on EKG Troponin elevations likely combination of demand from recently starting dialysis/hypotension and falsely elevated due to decreased renal clearance Continue to monitor on telemetry for, repeat EKG for any cardiac symptoms/chest discomfort (5) Cirrhosis: Plan: CT of the abdomen pelvis today noted cirrhosis with splenomegaly and moderate abdominal pelvic ascites Per review of his PCP note on 02/20/2024, this had been noted on previous CT of the abdomen pelvis and patient has been referred to hepatology but patient missed his appointment Patient is without signs of decompensated cirrhosis today Will hold medication adjustments at this time to avoid further issues with his blood pressure moving forward until he remained stable Avoid hepatotoxic agents Would recommend patient follow-up with hepatology (6) Abdominal aneurysm: Plan: CT of the abdomen pelvis without contrast noted in noted a significant increase in caliber of a 5 x 8 x 4.7 cm infrarenal abdominal aortic aneurysm along with interval dilation of the left common iliac artery Patient follows with Dr. Nicole of vascular surgery for these chronic issues The ED did speak with Dr. Nicole about the findings today, he explained that the patient will need close outpatient follow-up but does not require intervention during this admission Please ensure patient has vascular surgery follow-up prior to discharge (7) HTN (hypertension), benign: Plan: Currently stable Will reduce his dose of amlodipine from 10 mg down to 5 as this had recently been increased and is likely contributing to his syncopal episode today Will plan on resuming daily Lasix tomorrow if blood pressure is stable still recommended by nephrology as this was continued on the last visit to help encourage urine output Plan The patient was discussed with Dr. Henderson at the time of the admission History of Present Illness Chief Complaint: Syncopal episode Primary Care Provider: Anna Dhaliwal MD Constantine is a 75-year-old male with past medical history significant for end- stage renal disease on hemodialysis MWF, abdominal aortic aneurysm, left common iliac artery aneurysm, thoracic ascending aortic aneurysm, and bilateral carotid artery disease status post bilateral carotid endarterectomies, CLL, hypertension, anemia, BPH who presented to [facility] ED via EMS on 04/07/2024 after experiencing a syncopal episode at home. Per the ED staff, the patient was at home and had been outside with family when he tried to steps to go to the pool. He had sudden onset of lightheadedness and lost consciousness falling backwards and hitting his head off the concrete. He reportedly regained consciousness quickly and was without signs of seizure-like activity. He was noted to be tachypneic On arrival at 27 but was otherwise stable. A platelet count of 74 (down from 90 on 03/05/2024), stable electrolytes, initial high-sensitivity troponin of 78 with 2-hour repeat down to 65. CT of the brain without contrast was read as negative for acute posttraumatic intracranial abnormality or calvarial fractures. Posterior scalp contusion with laceration. 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 CT of the cervical spine without contrast, CT of the thoracic spine, and CT of the chest without contrast was read as negative for acute traumatic findings. CT of the abdomen pelvis without contrast was read as negative for acute traumatic findings. However did note a significant increase in caliber of a 5.8 x 4.7 cm infrarenal abdominal aortic aneurysm since CT of April 15, 2019. Interval dilation of the left common iliac artery. Nonemergent vascular surgery consultation was recommended. He was noted to have cirrhosis with splenomegaly moderate amount of abdominal pelvic ascites with right colon wall thickening likely related to poor bleeding nonspecific colitis could appear similar. The ED staff did speak with Dr. Nicole vascular surgery who explained that the patient would need to be evaluated on a nonemergent basis in the near future but would not require surgical intervention during this admission. Prior to admission the patient was given a dose of IV Tylenol. Patient was lying in bed in no acute distress at the time of exam with his bedside, history was obtained from both. They explained that the patient has recently started dialysis over the past week, he has had a total of 4 dialysis sessions with his last session on 04/06/2024. We explained that his dose of amlodipine was recently increased from 5 mg to 10 mg daily. He notes some increased ambulatory dysfunction over the past "few weeks" as if he is off balance. Woke up this morning in his normal state of health he did take his a.m. medications including antihypertensives. While walking up their pool steps he suddenly lost consciousness falling backwards hitting his head on the concrete and losing consciousness for only "a few seconds". Since his fall he has posterior head and cervical spine pain but otherwise feels his normal self. Denies changes in vision, chest pain, shortness of breath, palpitations, abdominal pain, nausea/vomiting, dysuria/hematuria, diarrhea, and lower extremity swelling in the recent past. When asked about the cirrhotic morphology of his liver on CT the abdomen pelvis today he and his state that they have never been told about this. I did explain to them that recent nephrology and primary care notes mention a previous CT of the abdomen and pelvis noting cirrhosis and that his PCP gave him a referral for hepatology but he reportedly missed the appointment. When discussing the old infarct on CT scan I deny a previous known history of stroke. We discussed CODE STATUS, he wishes to be a conditional code as he would not want CPR or cardiac defibrillation in the event of cardiac arrest. He would want a trial of intubation in the event of respiratory arrest. His is his power of litigation attorney associate. Please refer to Dr. Henderson's attestation for any changes to the treatment plan. Allergies Allergy/AdvReac Type Severity Reaction Status Date / Time Penicillins Allergy Unknown A CHILD Verified 03/25/24 14:56 COULD NOT TAKE Home Medications Medication Instructions Recorded Confirmed Type lorazepam 1 mg tablet 1 mg PO HS 04/15/19 04/07/24 History doxazosin 4 mg tablet 4 mg PO BID 03/07/23 04/07/24 History oxcarbazepine 300 mg tablet 300 mg PO BID 03/07/23 04/07/24 History (Trileptal) safety needles 25 gauge x 5/8" (BD #6 ea 03/22/23 03/25/24 Rx SafetyGlide Needle) syringe (disposable) 1 mL (BD #6 ea 03/22/23 03/25/24 Rx Syringe) sodium bicarbonate 650 mg tablet 650 mg PO BID 05/01/23 04/07/24 History rosuvastatin 10 mg tablet 10 mg PO DAILY #90 tabs 05/13/23 04/07/24 Rx ergocalciferol (vitamin D2) 1,250 50,000 unit PO MONTHLY #12 caps 06/06/23 04/07/24 Rx mcg (50,000 unit) capsule (Vitamin D2) amlodipine 10 mg tablet 10 mg PO DAILY #90 tabs 02/20/24 04/07/24 Rx polysaccharide iron complex 150 mg 150 mg PO BID 02/20/24 04/07/24 History iron capsule (Ferrex) tamsulosin 0.4 mg capsule 0.4 mg PO DAILY 02/20/24 04/07/24 History epoetin eris 20,000 unit/mL 20,000 unit subcut .weekly #4 mL 03/05/24 04/07/24 Rx injection solution furosemide 40 mg tablet 40 mg PO DAILY #30 tabs 03/23/24 04/07/24 Rx Past Med/Surg History Problem List (Updated 04/07/24 @ 16:54 by Vandana Marcelino MD) Anemia due to chronic kidney disease Episode of syncope Infarction of left thalamus Cirrhosis Elevated troponin End stage renal disease on dialysis CKD (chronic kidney disease), stage V Anemia HTN (hypertension), benign Pulmonary nodules Abnormal CT of the abdomen Encounter to discuss test results Kidney cysts noted on 06/05/18 MRI Chronic lymphocytic leukemia (Chronic) Hyperlipidemia (Chronic) Elevated PSA Abdominal aneurysm AAA 3.6cm in axial diameter (previously 2.7cm on 2011 imaging) Benign prostatic hyperplasia with elevated prostate specific antigen (PSA) (Chronic) Chronic obstructive pulmonary disease (Chronic) Hypertension NO MEDS CURRENTLY Medical History Elevated prostate specific antigen (PSA) SNHL (sensorineural hearing loss) Squamous cell carcinoma History of diverticulitis Pre-diabetes Surgical History S/p bilateral carotid endarterectomy History of appendectomy S/P lobectomy of lung Left [id number] CHEMO/NO RADI[facility] Hx of endoscopy UPPER Hx of colonoscopy Hx of oral surgery Family History Other Family history non-contributory Denies family history of Ovarian cancer Prostate cancer Myocardial infarction Breast cancer Colorectal cancer Social History Smoking Status: Former smoker Cigarettes Per Day: 20; Smoking End Date: 2008; Second Hand Exposure: No; Do You Dip or Chew Tobacco: No; Hx Alcohol Use: No Hx Substance Use: No Preferred Language: [place] Communication Ability: Effective Communication Ability Comment: SOME HARD OF HEARING / NO HEARING AIDES Visual Impairment: No Limitations Seamless Tube Mill Operator Required: No Beliefs That Will Affect Care: Baptist Baptist Beliefs: Taoist marital status: Current Living Situation: Spouse Current Living Situation Comment: Home with spouse current occupational status: employed and retired 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 [employer] How many Children do You have: 2 Other Information That Helps Us Care for You: No Feels Safe at Home: Yes Safety Concerns: Feels Safe At This Time Childhood Exposure to Second-Hand Smoke: No Diet: regular Diet Comment: avoids red meat caffeine: No Dental Care, Regularly: Yes Physical Activity Frequency: Daily Physical Activity Frequency Comment: Walking Seatbelt Use: always Sunscreen Use: Yes Assistive Devices: None Physical Exam Physical Exam: Physical Exam: General: In no acute distress, stated age, chronically ill appearing but non- toxic HEENT: Patient with a small posterior scalp laceration from his recent fall with mild bleeding (will be repaired by the ED shortly), no scleral icterus, pupils around round, symmetrical, and reactive to light, moist mucus membranes, trachea midline, no thyromegaly Chest/Pulm: No respiratory distress, symmetrical chest expansion, clear breath sounds throughout Cardiac: RRR, no murmurs noted Abdomen: Mild abdominal ascites noted, normoactive bowel sounds, soft, non- tender to palpation throughout : Left inguinal hernia noted on exam which with easily reducible and without signs of strangulation Musculoskeletal: Symmetrical and without signs of acute trauma, upper and lower extremities with full ROM, no atrophy, spasticity, or flaccidity Extremities: Radial, dorsalis pedis, and posterior tibial pulses are intact and symmetrical, no edema noted in the BL LE's Skin: Posterior scalp laceration as described above, otherwise no acute trauma Neuro: Alert and oriented to person, place, month, year, and president, no focal defects, CN II-XII tested and intact, negative cerebellar and pronator drift testing in the BL UE's, no tremors noted Psych: No acute distress, calm and cooperative during the exam Results & Data Results & Data Vital Signs (Past 12 Hours) Vital Signs Temp Pulse Resp BP Pulse Ox O2 Del Method 04/07/24 13:15 71 17 99 04/07/24 12:33 65 13 96 04/07/24 12:30 126/63 04/07/24 12:24 67 12 99 04/07/24 12:15 70 16 96 04/07/24 11:13 98 Room Air 04/07/24 11:09 68 21 99 04/07/24 11:00 143/69 H 04/07/24 10:57 76 20 04/07/24 10:43 71 04/07/24 10:35 152/75 H 04/07/24 10:35 36.9 C 70 27 H 152/75 H 99 Room Air 04/07/24 10:33 68 18 Laboratory Results Abnormal lab results 04/07/24 04/07/24 04/07/24 Range/Units 10:30 10:40 12:46 RBC 3.12 L (4.70-6.10) M/uL Hgb 9.2 L (14.0-18.0) g/dl POC Hgb 8.8 L (14.0-18.0) g/dl Hct 30.1 L (42.0-52.0) % POC Hct 26 L (42-52) % MCHC 30.6 L (32.0-36.0) g/dL RDW Std Deviation 49.0 H (36.4-46.3) fL Plt Count 74 L (130-400) K/uL POC Chloride 100 L (101-112) mmol/L POC BUN 21 H (7-18) mg/dl Creatinine 4.69 H* (0.6-1.4) mg/dl POC Creatinine 5.1 H* (0.6-1.3) mg/dl BUN/Creatinine Ratio 4.3 L (10-20) Glucose 118 H (70-99(Fasting)) mg/dl POC Glucose (other) 112 H (70-99) mg/dl Calcium 8.2 L (8.6-10.3) mg/dl POC Ioniz Calcium Karyn 1.07 L (1.12-1.32) mmol/l ALT 6 L (7-52) U/L Alkaline Phosphatase 109 H (34-104) U/L Troponin I High Sens 78.6 H* 65.9 H* D (0-20) pg/ml Total Protein 5.2 L (6.0-8.3) gm/dl Albumin 3.3 L (3.4-5.0) gm/dl Globulin 1.9 L (2.5-4.0) gm/dl Diagnostic Findings Cervical Spine CT 04/07/24 11:03 CT OF THE CERVICAL SPINE WITHOUT CONTRAST CLINICAL HISTORY: fall, occipital head injury, lower cervical tender COMPARISON STUDY: PET/CT June 11, 2018. TECHNIQUE: Helical axial images of the cervical spine were obtained without IV contrast. Sagittal and coronal reconstructions were viewed. Automated exposure control was utilized for the study. A dose lowering technique was utilized adhering to the principles of ALARA. FINDINGS: Alignment of the cervical spine is anatomic. Vertebral body heights are maintained. No acute cervical spine fracture or subluxation is present. There is no prevertebral edema. Facet joints are intact. Moderate multilevel disc space narrowing, endplate osteophytosis and facet arthrosis is present. Prominent bilateral cervical lymph nodes are similar to prior PET/CT. These are likely benign. 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 IMPRESSION: No acute cervical spine fracture or subluxation. ACT 112: Negative or not required by law. Electronically signed by: David Zaragoza M.D. 04/07/2024 12:[address] 04/07/24 11:03 CT head/brain wo con CLINICAL HISTORY: 78 years-old Male with occipital head injury. Acute head trauma TECHNIQUE: Multiple axial CT images of the head were obtained without contrast. A dose lowering technique was utilized adhering to the principles of ALARA. COMPARISON: CT cervical spine of same day FINDINGS: No acute intracranial hemorrhage, midline shift, intracranial mass, hydrocephalus, territorial ischemia or abnormal extra-axial collection. Involutional changes with chronic microvascular ischemic disease. 9 mm hypodense focus of the left thalamus on image 15 series 2. The calvarium is intact. Mastoid air cells are clear. Minimal mucosal thickening of the paranasal sinuses. There is a small midline occipital scalp contusion with laceration. IMPRESSION: 1. No acute posttraumatic intracranial abnormality or calvarial fracture. 2. Posterior scalp contusion with laceration. 3. 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 ACT 112: Negative or not required by law. The above report was generated using voice recognition software. It may contain grammatical, syntax or spelling errors. Electronically signed by: Delfino Dolan M.D. 04/07/2024 12:[address] 04/07/24 11:[address] DOSE: HISTORY: fall, upper thoracic tender TECHNIQUE: Multiaxial CT images of the thoracic spine were performed and reformatted in the sagittal and coronal plane without the use of contrast. A dose lowering technique was utilized adhering to the principles of ALARA. COMPARISON: Chest CT 04/07/2024. FINDINGS: Small right and trace left pleural effusions. No fracture or subluxation within the thoracic spine. Paravertebral soft tissues are unremarkable. No significant central canal narrowing by CT technique. No pneumothorax. Mild degenerative disc disease throughout the majority of the thor acic spine. IMPRESSION: No fractures within the thoracic spine. ACT 112: Negative or not required by law. Electronically signed by: Anthony Christine M.D. 04/07/2024 12:58 PM Abdomen/Pelvis CT 04/07/24 11:33 CT OF THE ABDOMEN AND PELVIS WITHOUT CONTRAST CLINICAL HISTORY: fall backwards head injury back pain COMPARISON STUDY: CT of the abdomen and pelvis April 15, 2019. Renal ultrasound March 12, 2022. TECHNIQUE: Axial images of the abdomen and pelvis were obtained without IV contrast. Images were reviewed in the axial, sagittal, and coronal planes. Automated exposure control was utilized for the study. A dose lowering technique was utilized adhering to the principles of ALARA. FINDINGS: Please note that the chest CT will be reported separately. There is decreased attenuation of the cardiac blood pool. There are small right and trace left pleural effusions. No hemoperitoneum or pneumoperitoneum is present. There is moderate abdominal and pelvic ascites. The liver is cirrhotic. The spleen is moderately enlarged. Right colon wall thickening is likely related to portal hypertension. No evidence for traumatic injury to the solid abdominal viscera on unenhanced exam. Adrenal glands and pancreas are unremarkable. There are numerous water attenuation bilateral renal lesions. These are suboptimally assessed on this unenhanced exam but favor cysts. Hypodense lesions are indeterminate but similar to prior CT and likely reflect hyperdense cysts. There is colonic diverticulosis. No evidence for acute diverticulitis. No evidence for a bowel obstruction. There is no retroperitoneal hematoma. There is ascites within bilateral inguinal hernias, left larger than right. A 5.8 x 4.7 cm infrarenal abdominal aortic aneurysm has significantly increased in caliber since CT of April 15, 2019. There is no evidence for rupture. The left common iliac artery is also aneurysmally dilated, measuring 2.4 cm. No acute lumbar spine, pelvic or hip fracture is present. Prominent retroperitoneal lymph nodes are likely benign. There are gallstones within the gallbladder. The prostate is enlarged, measuring 6 cm in transverse diameter. No hydronephrosis. IMPRESSION: 1. No acute traumatic findings within the abdomen or pelvis on unenhanced exam. No acute fractures. 2. Significant increase in caliber of a 5.8 x 4.7 cm infrarenal abdominal aortic aneurysm since CT of April 15, 2019. Interval dilatation of the left common iliac artery. Nonemergent vascular surgery consultation is recommended. 3. Decreased attenuation of the cardiac blood pool which raises the possibility of anemia. 4. Cirrhosis with splenomegaly and moderate abdominal and pelvic ascites. Right colon wall thickening is likely related to portal hypertension. A nonspecific colitis could appear similar. 5. Extensive colonic diverticulosis. No evidence for acute diverticulitis. ACT 112: Negative or not required by law. Electronically signed by: David Zaragoza M.D. 04/07/2024 12:[address] 04/07/24 11:33 CT OF THE CHEST WITHOUT IV CONTRAST CLINICAL HISTORY: fall backwards, thoracic pain COMPARISON STUDY: Chest radiograph August 04, 2018. Chest CT March 15, 2020. CT DOSE: 3193.09 mGy.cm TECHNIQUE: Axial images of the chest were obtained without IV contrast. Images were reviewed in the axial, sagittal, and coronal planes. IV contrast was not administered for this examination. Automated exposure control was utilized for the study. A dose lowering technique was utilized adhering to the principles of ALARA. FINDINGS: Thoracic aorta is suboptimally assessed on unenhanced exam but no mediastinal hematoma is present. There is no pericardial effusion. Size of the heart is normal. Stable postoperative findings within the left lung. There is no thoracic lymphadenopathy. No acute rib or thoracic spine fracture is present. Small right and trace left pleural effusions are present. The pleural effusions are low attenuation. A 6 mm right upper lobe pulmonary nodule is unchanged and prior CT. This is benign given stability. The abdomen and pelvis CT will be reported separately. IMPRESSION: 1. No acute traumatic findings within the chest. 2. Small right and trace left pleural effusions. No pneumothorax. ACT 112: Negative or not required by law. Electronically signed by: David Zaragoza M.D. 04/07/2024 12:46 PM ECG Additional Comments: Sinus rhythm with frequent Premature ventricular complexes Otherwise normal ECG When compared with ECG of 19-JUN-2018 11:06, Premature ventricular complexes are now Present T wave inversion no longer evident in Anterolateral leads Confirmed by Hector Rizvi ([id number]) on 04/07/2024 11:58:18 AM Code Status & VTE Plan Code Status Conditional code; see HPI VTE Prophylaxis Plan VTE Prophylaxis will be ordered: Yes Supervising Physician Co-Signing Physician Notes I personally saw and examined the patient. I verified all ying points and agree with Daniel Miranda PA-C with the following exceptions and/or additions: 78 year old male newly started on dialysis presents to the ER with syncopal event. Remember hitting his head but cannot remember exactly what happened. Just fell backwards. [place]land well prior to the fall. No dizziness, chest pain or shortness of breath prior to falling. O/E HS RRR, no murmurs, Chest CTAB, Abdo SNT, CN 2-> 12 intact, no focal weakness or sensory loss A/P Syncope - TTE, monitor on telemetry for arrhythmia, possible orthostasis in setting of newly starting dialysis and will reduce amlodipine back to 5mg PO daily. No infection suspected on imaging/labs/history. Incidental infarction of left thalamus seen on CT - will get brain MRI/MRA, carotid dopplers and TTE for full workup, unclear if this is related to his syncopal episode ESRD on dialysis - consult nephrology for ongoing dialysis Otherwise as above PG Care Time/CCT Total # of Minutes Spent Total Time Spent with Patient: Total time spent is greater than 50% in coordination of care (as documented) at patient's floor/unit and/or counseling patient: Coding [place] [address] INT INP/OBS CARE 3/75MIN Patient Type Established Medical Decision Making High Complexity Diagnoses Episode of syncope R55 End stage renal disease on dialysis N18.6; Z99.2 Infarction of left thalamus I63.81 Elevated troponin R79.89 Cirrhosis K74.60 Abdominal aneurysm I71.4 HTN (hypertension), benign I10
[2024-04-07] MEDS ORDERED: ACETAMINOPHEN 325 MG TAB PO PRN (14:49)
--- NOTE | 2024-04-07 14:52 | Emergency Department Note ---
ED Visit Note Upon further inspection, the patient had a small laceration embedded within the abrasion on the occipital scalp. This extended into the dermis but not into the subcutaneous tissue. The surrounding epidermal abraded skin was resected by myself and the wound was copiously irrigated with sterile saline. Wound was repaired with 1 staple. Total laceration length 1 cm. Dressing was applied by endoscopic technician including bacitracin ointment, nonstick gauze. Staple removal in 1 week by PCP. .
--- NOTE | 2024-04-07 16:30 | Ultrasound Report ---
CAROTID ARTERY ULTRASOUND CLINICAL HISTORY: Stroke on CT head, can't have CT contrast COMPARISON STUDY: None. TECHNIQUE: Real-time, grayscale, and color Doppler sonography of the carotid and vertebral arteries w as performed. Images were viewed in the transverse and longitudinal planes. FINDINGS: There is moderate atherosclerotic plaque. Velocity measurements are listed below. COMMON CAROTID PEAK SYSTOLIC VELOCITY (CM/S): RIGHT 63 LEFT 58 ICA PEAK SYSTOLIC VELOCITY (CM/S): RIGHT 75 LEFT 71 Systolic ratios between the internal to common carotid arteries are normal. Antegrade flow is seen in the vertebral arteries. The external carotid arteries are patent. IMPRESSION: No evidence for a hemodynamically significant stenosis. ACT 112: Negative or not required by law. Electronically signed by: David Zaragoza M.D. 04/07/2024 4:29 PM
--- NOTE | 2024-04-07 16:41 | Nephrology Consultation ---
Date of Consultation April 07, 2024 Assessment & Plan (1) End stage renal disease on dialysis: (2) Episode of syncope: (3) Hypertension: (4) Anemia due to chronic kidney disease: Plan End-stage kidney disease, recently started on hemodialysis a week ago, has been tolerating dialysis well. Admitted to hospital after a brief syncopal episode and fall at home. Extensive workup showing scalp laceration but no intracranial bleeding. Blood pressure slightly elevated with evidence of volume overload including ascites, bilateral pleural effusion but respiratory status acceptable. Electrolyte acceptable. --keep on scheduled for dialysis tomorrow as a regular schedule. --Start on Renvela 1 tab 3 times daily with meal --Venofer 200 mg IV daily for 3 dose, Epogen 40,000 units 1 dose with dialysis tomorrow --Left arm nephrology precaution, dose medications for GFR less than 10 --Avoid IV fluid Thank you for allowing me to participate in your patient's care. It was a pleasure to see Jesús. History of Present Illness Reason for Consultation: ESKD on HD Attending Physician: Riley Henderson MD History of Present Illness Mr. Constantine Martinez is a 78-year-old male with ESKD on HD, admitted to the hospital after a fall at home and continuation and laceration on his scalp. Nephrology consult requested for management of hemodialysis while inpatient. EMR records are reviewed in detail during patient's visit. Mr. Martinez presented to the ER after he had a fall at home after feeling lightheaded and fell backwards and hit the back of his head off the concrete. In ER vital signs are otherwise stable. CT head and neck showed contusion and posterior scalp laceration but no intracranial hemorrhage. CT C/A/P showed 5.8 cm abdominal aortic aneurysm, ascites and bilateral pleural effusion. Labs showed acceptable electrolyte. End-stage kidney disease attributed to a history of lithium use and calcific vascular disease, started on hemodialysis on 03/30/2024 via left RC AVF ( placed in [address] Patel), dialyzes at [facility]. Dialysis on Saturday, , Saturday with the dialysis prescription of: 3.5 hours, using 17- gauge needle, blood flow 250, was on 3K 2.5 calcium bath, sodium 140. Blood pressure has been relatively low, has been getting UF 1.5 to 2 L, still makes urine. Weight at the end of last treatment was 66.9 kg. Prior kidney imaging showed multiple cysts in both kidneys. Has history of high-grade proteinuria, prior paraproteinemia workup was unremarkable. Medical history is notable for borderline personality disorder, LISA, hypertension, AAA (monitored by Dr. Nicole), BPH with elevated PSA (followed by Dr. Panda - biopsy x 2 completed, hyperlipidemia, COPD with a past smoking history. 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 He follows with Dr. Avelino Linares in the oncology clinic. 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 Has been having headache but otherwise asymptomatic. He reports overall tolerating dialysis after recently started but had a lot of questions. Allergies Allergy/AdvReac Type Severity Reaction Status Date / Time Penicillins Allergy Unknown A CHILD Verified 03/25/24 14:56 COULD NOT TAKE Home Medications Medication Instructions Recorded Confirmed Type lorazepam 1 mg tablet 1 mg PO HS 04/15/19 04/07/24 History doxazosin 4 mg tablet 4 mg PO BID 03/07/23 04/07/24 History oxcarbazepine 300 mg tablet 300 mg PO BID 03/07/23 04/07/24 History (Trileptal) safety needles 25 gauge x 5/8" (BD #6 ea 03/22/23 03/25/24 Rx SafetyGlide Needle) syringe (disposable) 1 mL (BD #6 ea 03/22/23 03/25/24 Rx Syringe) sodium bicarbonate 650 mg tablet 650 mg PO BID 05/01/23 04/07/24 History rosuvastatin 10 mg tablet 10 mg PO DAILY #90 tabs 05/13/23 04/07/24 Rx ergocalciferol (vitamin D2) 1,250 50,000 unit PO MONTHLY #12 caps 06/06/23 04/07/24 Rx mcg (50,000 unit) capsule (Vitamin D2) amlodipine 10 mg tablet 10 mg PO DAILY #90 tabs 02/20/24 04/07/24 Rx polysaccharide iron complex 150 mg 150 mg PO BID 02/20/24 04/07/24 History iron capsule (Ferrex) tamsulosin 0.4 mg capsule 0.4 mg PO DAILY 02/20/24 04/07/24 History epoetin eris 20,000 unit/mL 20,000 unit subcut .weekly #4 mL 03/05/24 04/07/24 Rx injection solution furosemide 40 mg tablet 40 mg PO DAILY #30 tabs 03/23/24 04/07/24 Rx Patient History Medical History Elevated prostate specific antigen (PSA) SNHL (sensorineural hearing loss) Squamous cell carcinoma History of diverticulitis Pre-diabetes Surgical History S/p bilateral carotid endarterectomy History of appendectomy S/P lobectomy of lung Left [id number] CHEMO/NO RADIATION-[facility] Hx of endoscopy UPPER Hx of colonoscopy Hx of oral surgery Family History Other Family history non-contributory Denies family history of Ovarian cancer Prostate cancer Myocardial infarction Breast cancer Colorectal cancer Social History Smoking Status: Former smoker Cigarettes Per Day: 20; Smoking End Date: 2008; Second Hand Exposure: No; Do You Dip or Chew Tobacco: No; Hx Alcohol Use: No Hx Substance Use: No Preferred Language: Macedonian Communication Ability: Effective Communication Ability Comment: SOME HARD OF HEARING / NO HEARING AIDES Visual Impairment: No Limitations Geotechnical Engineer Required: No Beliefs That Will Affect Care: Worship Worship Beliefs: Sabianist marital status: Current Living Situation: Spouse Current Living Situation Comment: Home with spouse current occupational status: employed and retired 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 Physical Exam Constitutional: WD/WN, vitals as above no acute distress Eyes: + anicteric sclerae Neck: normal visual inspection Respiratory: no respiratory distress and no cough Cardiovascular: Rate/Rhythm: regular rate and regular rhythm Heart Sounds: normal S1 and normal S2 Extremities: + AV fistula (left RC AVF with thrill and bruit); no edema Gastrointestinal (Abdomen): Inspection/Auscultation: abdomen normal to inspection and normal bowel sounds Percussion/Palpation: abdomen soft; abdomen nontender Musculoskeletal: Extremities: extremities normal to inspection Skin: + skin atrophy and + ecchymosis Neurologic: no focal motor deficits Psychiatric: Orientation: alert and oriented x 3 Affect: euthymic affect Results & Data Vital Signs (Past 12 Hours) Vital Signs Temp Pulse Pulse Resp BP BP Pulse Ox 04/07/24 16:21 36.4 C L 61 16 04/07/24 16:17 36.4 C L 61 16 154/63 H 98 04/07/24 14:39 69 20 04/07/24 14:24 68 20 04/07/24 13:36 64 21 04/07/24 13:15 71 17 99 04/07/24 12:33 65 13 96 04/07/24 12:30 126/63 04/07/24 12:24 67 12 99 04/07/24 12:15 70 16 96 04/07/24 11:13 98 04/07/24 11:09 68 21 99 04/07/24 11:00 143/69 H 04/07/24 10:57 76 20 04/07/24 10:43 71 04/07/24 10:35 152/75 H 04/07/24 10:35 36.9 C 70 27 H 152/75 H 99 04/07/24 10:33 68 18 O2 Del Method 04/07/24 16:21 Room Air 04/07/24 16:17 Room Air 04/07/24 14:39 04/07/24 14:24 04/07/24 13:36 04/07/24 13:15 04/07/24 12:33 04/07/24 12:30 04/07/24 12:24 04/07/24 12:15 04/07/24 11:13 Room Air 04/07/24 11:09 04/07/24 11:00 04/07/24 10:57 04/07/24 10:43 04/07/24 10:35 04/07/24 10:35 Room Air 04/07/24 10:33 PG Care Time/CCT Total # of Minutes Spent Total Time Spent with Patient: Total time spent is greater than 50% in coordination of care (as documented) at patient's floor/unit and/or counseling patient: Coding Level of Care Code 66180 INT INP/OBS CARE 3/75MIN Diagnoses End stage renal disease on dialysis N18.6; Z99.2 Episode of syncope R55 Hypertension I10 Anemia due to chronic kidney disease N18.9; D63.1
[2024-04-07 17:10] LABS: Appearance Urine Clear (Clear); Bacteria Urine Automated None Seen (None Seen); Bilirubin Urine Negative (Negative); Blood Urine Negative (Negative); Cast Urine Automated 0-2 /lpf (0-2); Color Urine Yellow; Epithelial Cell Urine Auto 0-2 /hpf (0-2); Glucose Urine UA Negative (Negative); Ketones Urine Negative (Negative); Leukocyte Esterase Urine Negative (Negative); Nitrite Urine Negative (Negative); Protein Urine 3+ (Negative); RBC Urine Automated 0-2 /hpf (0-2); Urobilinogen Urine Negative (Negative); WBC Urine Automated 0-5 /hpf (0-5); pH Urine >= 9.0 (4.5-7.5)
[2024-04-07] MEDS: SEVELAMER CARBONATE 800 MG TAB PO SCH (17:28)
[2024-04-07] MEDS: SODIUM BICARBONATE 650 MG TAB PO SCH (21:09)
[2024-04-07] MEDS: DOXAZosin MESYLATE 4 MG TAB PO SCH (21:10)
[2024-04-07] MEDS: OXcarbazepine 150 MG TABLET PO SCH (21:10)
[2024-04-07] MEDS: LORazepam 1 MG TAB PO SCH (21:12)
--- NOTE | 2024-04-07 22:48 | Magnetic Resonance Report ---
Exam(s): MRA HEAD Without Contrast EXAM: MR Angiography Head Without Intravenous Contrast CLINICAL HISTORY: Reason for exam: age indeterminate lacunar infarct, ESRD status. TECHNIQUE: Magnetic resonance angiography images of the head without intravenous contrast. COMPARISON: No relevant prior studies available. FINDINGS: Right internal carotid artery: No acute findings. Intracranial segment is patent with no significant stenosis. No aneurysm. Right anterior cerebral artery: Unremarkable. No occlusion or significant stenosis. No aneurysm. Right middle cerebral artery: Unremarkable. No occlusion or significant stenosis. No aneurysm. Right posterior cerebral artery: Unremarkable. No occlusion or significant stenosis. No aneurysm. Right vertebral artery: Unremarkable as visualized. Left internal carotid artery: No acute findings. Intracranial segment is patent with no significant stenosis. No aneurysm. Left anterior cerebral artery: Unremarkable. No occlusion or significant stenosis. No aneurysm. Left middle cerebral artery: Unremarkable. No occlusion or significant stenosis. No aneurysm. Left posterior cerebral artery: Unremarkable. No occlusion or significant stenosis. No aneurysm. Left vertebral artery: Unremarkable as visualized. Basilar artery: Unremarkable. No occlusion or significant stenosis. No aneurysm. IMPRESSION: Negative MRA of the brain. Electronically signed by: Jo-Ann Walker MD 04/07/24 22:47 PM
--- NOTE | 2024-04-07 22:53 | Magnetic Resonance Report ---
Exam(s): MRI HEAD Without Contrast EXAM: MR Head Without Intravenous Contrast CLINICAL HISTORY: Reason for exam: infarction left thalamus. TECHNIQUE: Magnetic resonance images of the head/brain without intravenous contrast in multiple planes. COMPARISON: No relevant prior studies available. FINDINGS: Brain: There is a late subacute ischemic injury of the left posterior capsule with reversal of ADC map. Remote ischemic injuries of the thalami. Moderate nonspecific white matter changes. The flow voids at the base of the brain are intact. No mass. No hemorrhage. No acute infarct. Ventricles: Mild ventriculomegaly. Bones/joints: Unremarkable. No acute fracture. Sinuses: Chronic maxillary sinusitis. No acute sinusitis. Mastoid air cells: Unremarkable as visualized. No mastoid effusion. Orbits: Unremarkable as visualized. IMPRESSION: No evidence of acute intracranial pathology. Likely late subacute ischemic injury of the left capsule. Electronically signed by: Jo-Ann Walker MD 04/07/24 22:52 PM
--- OUTSIDE RECORDS SUMMARY | 2024-04-08 05:14 | External Medical Summary | Summary of Care ---
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 01/26/2016 Active tamsulosin (FLOMAX) 0.4 MG Capsule Take 1 Capsule by mouth in the morning. Active LORazepam (ATIVAN) 1 MG Tablet Take 1 Tablet by mouth as needed. 02/15/2018 Active rosuvastatin (CRESTOR) 40 MG Tablet Take 1 Tablet by mouth in the morning. 01/15/2018 Active sodium bicarbonate 650 MG Tablet Take 1 Tablet by mouth in the morning and 1 Tablet at noon and 1 Tablet in the evening and 1 Tablet before bedtime. Active Doxazosin Mesylate 4 MG Oral Tablet Take 1 Tablet by mouth in the morning and 1 Tablet before bedtime. Active losartan (COZAAR) 25 MG Tablet Take 25 mg by mouth daily. Active fenofibrate (LOFIBRA) 160 MG Tablet 05/16/2020 Active amLODIPine Besylate 5 MG Oral Tablet (Norvasc) Take 2 Tablets by mouth in the morning. 04/17/2021 Active Omeprazole 40 MG Oral Capsule Delayed Release (PriLOSEC)Indication s:Sore throat,Hoarseness Take 1 Cap by mouth daily. 1 hour before the first meal of the day 30 Cap 05/31/2021 Active Additional Information Patient not taking.Reported on 04/02/2024 Azelastine HCl 0.1 % Nasal Solution Administer 1 Left Hand into nostril 2 times a day. 30 mL 12 06/06/2021 Active Additional Information Patient not taking.Reported on 04/02/2024 Fluticasone Propionate 50 MCG/ACT Nasal Suspension Administer 2 Sprays into each nostril 2 times a day. 11.1 mL 5 06/06/2021 Active Additional Information Patient not taking.Reported on 04/02/2024 Calcitriol 0.25 MCG Oral Capsule (Rocaltrol) 1 Capsule. Saturday, Saturday, Saturday Active Furosemide 40 MG Oral Tablet (Lasix) Take 1 Tablet by mouth in the morning. 03/30/2024 Active Procrit 17364 UNIT/ML Injection Solution Inject 2,000 Units under the skin once a week. 03/06/2024 Active documented as of this encounter (statuses as of 04/02/2024) Active Problems Problem Noted Date Diagnosed Date Dyslipidemia, goal LDL below 100 02/06/2016 Erectile dysfunction 05/04/2015 AAA (abdominal aortic aneurysm) 03/04/2015 Impaired fasting glucose 01/31/2015 Headache 07/20/2014 Overview: ICD-10 update of inactive term Dyslipidemia, goal to be determined 06/15/2014 Fever 05/14/2013 Vitamin D deficiency 05/05/2013 Elevated prostate specific antigen (PSA) 013 Other seborrheic keratosis 04/01/2013 History of basal cell carcinoma 04/01/2013 Acute sinusitis 11/21/2012 Chronic sinusitis 11/21/2012 Screening for prostate cancer 09/29/2012 CLL (chronic lymphocytic leukemia) 04/02/2012 Pulmonary nodules 03/22/2012 Acute bronchitis, complicated 03/04/2012 Neoplasm of uncertain behavior of skin 1 HTN, goal below 140/90 06/15/2011 Vitamin D deficiency 03/31/2010 BPH without obstruction/lower urinary tract symp toms 10/14/2009 Bipolar disorder 02/01/2009 Overview: Sees dr maddox for meds. Kidney disease, chronic, stage III (GFR 30-59 ml /min) 02/01/2009 Leukocytosis Overview: ICD-10 update of inactive term Erectile dysfunction documented as of this encounter (statuses as of 04/02/2024) Resolved Problems Problem Noted Date Diagnosed Date Resolved Date Lumbago 03/04/2015 05/04/2015 Hearing loss 06/15/2014 05/04/2015 Chest pain 01/26/2014 05/04/2015 Bronchitis, complicated 01/26/201404/16 Rotator cuff syndrome 07/13/20132014 Acute sinusitis 07/09/2012 11/21/2012 Arthralgia 03/04/2012 11/21/2012 Impaired fasting glucose 05/24/201104/2013 Tobacco use disorder 10/26/2010 012 Acute sinusitis 10/26/2010 03/22/2012 Infective otitis externa 10/19/201003/2012 Dysfunction of eustachian tube 08/03/2010 03/22/2012 Calculus of gallbladder with out mention of cholecystitis or obstruction 02/01/2009 03/22/2012 Dyslipidemia, goal to be determined 03/22/2012 High triglycerides 2 Bipolar I disorder, most rec ent episode mixed, mild 03/22/2012 Overview: followed by outside psych Chronic rhinitis 01/26/2014 Tobacco use disorder 014 documented as of this encounter (statuses as of 04/02/2024) Immunizations Name Administration Dates Next Due Pneumococcal Polysaccharide PPV23 (Pneumovax) Season Influenza, Quad, PF, Adjuvanted, 65+ Yrs, IM (FLUAD) 05/24/2020 Seasonal Influenza, PF, 6 M & above, IM , (FluLaval or Fluzone) 05/31/2021 Seasonal Influenza, Split, IIV3, With Preserve, Inj 05/24/2011,07/24/2010 TDAP, Age 7 and older, IM (Adacel) 02/01/2009 documented as of this encounter Social History Tobacco Use Types Packs/Day Years Used Date Smoking Tobacco: Former Cigarettes 1 48 Smokeless Tobacco: Never Comments:started age 16 Alcohol Use Standard Drinks/Week Comments No 0 (1 standard drink = 0.6 oz pur e alcohol) Sex and Gender Information Value Date Recorded Sex Assigned at Not on file Gender Identity Not on file Sexual Orientation Not on file Job Start Date Occupation Industry Not on file Not on file Not on file documented as of this encounter Progress Notes * Ryne Hidalgo, - 04/02/2024 8:30 AM EDT [facility] [place] Nursing notes reviewed. Eye vitals reviewed. Mood and Affect: normal HPI: Constantine Martinez is a 78 year old male who presents for RVO No other eye complaints. Denies significant pain. Base Eye Exam Visual Acuity (Snellen - Linear) Right Left Dist sc 20/200 -1 20/40 Dist ph sc 20/150 NI Tonometry (Tonopen, 8:52 AM) Right Left Pressure 15 8 Pupils Dark Shape React APD Right 3 Round Minimal None Left 3 Round Minimal None Visual Seay (Counting fingers) Right Left Restrictions Partial outer inferior nasal deficiency Extraocular Movement Right Left Full, Ortho Full, Ortho Neuro/Psych Oriented x3: Yes Mood/Affect: Normal Dilation Both eyes: 0.5% Proparacaine @ 8:50 AM Dilation #2 Both eyes: 1.0% Mydriacyl, 2.5% Phenylephrine @ 8:51 AM Dilation #3 Both eyes: 1.0% Mydriacyl, 2.5% Phenylephrine @ 8:53 AM Dilation Comments Patient cautioned that effects of dilation may last 2-7 hours dependant upon individual reaction. It was discussed that driving while dilated is not recommended. EXTERNAL: The ocular adnexae are unremarkable. SLE: Lids/Lashes: wnl OU Conjunctiva/Sclera: quiet OU Cornea: clear OU Anterior Chamber: deep and quiet OU Iris: normal OU; no NVI OU Lens: +NSC OU Dilated fundus exam OD: vitreous: clear optic nerve: 0.1, no edema/pallor/NVD macula: resolved heme/exudates vessels: +old ST BRVO periphery: wnl, no RT/RD Dilated fundus exam OS: vitreous: clear optic nerve: 0.1, no edema/pallor/NVD macula: wnl vessels: +av nicking periphery: wnl, no RT/RD OCT Interpretation: OD: atrophic chronic superior CME, fovea mostly dry incomplete PVD --overall improved from last OCThere 05/31/21 OS: resolved trace foveal cystic change w/ resolved mild VMT, no CME/SRFluid, no PVD - stable A/P: 1. Branch Retinal Vein Occlusion OD -onset: 2014 -s/p [place]/30/20[place] 05-24-20, 05-27-19, 04-24-17, [place]03/21/16, 01/24/16, [11/24/15 in [place]]07/15/16) - >2 years (2020) since last injection [place] last 2020 -continue prn tx, did not f/u in [place]; so last retina exam was here 05/09/23 -OCT OD shows no sig change but VA down to 20/150 2. H/o VitreoMacular Traction Syndrome OS -resolved, now w/ incomplete pvd 3. Hypertensive Retinopathy OU -recommend BP control 4. Cataracts OU -not visually significant F/u 6-8 weeks, [place] [address] CC: Dr. Silva PCP: Ryne Potter MD documented in this encounter Nursing Notes * Elvia Balderas MED ASSIST - 04/02/2024 8:44 AM EDT Constantine Martinez is a 78 year old year old male who presents for BRVO OD/new bleed. Last Office Visit: 05/09/2023 (in office), Visit date not found (telemedicine) Patient currently states Dr Silva saw blood behind his right, pt reports no visual changes in that eye Are you diabetic? No Do you drive? yes OCT image(s) of both eyes acquired and filed/scanned into chart. documented in this encounter Plan of Treatment Upcoming Encounters Date Type Department Care Team (Late st Contact Info) Description 04/08/2024 1:40 PM EDT Office Visit Dermatology [facility] [address] [place] [id number] Tessy Garza PA-C [address] [place] [id number] 04/08/2024 3:00 PM EDT Office Visit Hematology/Oncology [facility] [place] [address] [place] [id number] Becca Simmons, [place] [address] [place] [address] 05/21/2024 2:00 PM EDT Office Visit Ophthalmology, [facility] [address] [place] [address] Ryne Hidalgo DO [address] [place] [address] Scheduled Orders Name Type Priority Associated Diagnoses Orde r Schedule RETINA SCAN DIAGNOSTIC IMAGE, POSTERIOR Procedures Routine 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 Ordered: 04/02/2024 Health Maintenance Due Date Last Done Comments COVID-19 Vaccine (#1) 1950 Hepatitis C Screening 1963 Zoster Vaccines (1 of 2) 1964 Colonoscopy 06/10/2014 06/10/2009 CKD PHOS USE SMARTSET 03155 06/21/201602/2015, 01/25/2014, 05/05/2013, Additional history exists Albumin/Creatinine Ratio 06/30/2016 06/30/2015, 09/17 DTaP,Tdap,and Td Vaccines (2 - Td or Tdap) 02/01/2019 02/01/2009 Pneumococcal Vaccine: 65+ Years (3 of 3 - PCV) 03/12/2019 03/12/2018, 02/01/2009 AAA Monitoring 12/10/2019 12/09/2018, 02/17/2016 GFR 08/30/2021 02/28/2021, 09/2018, 06/21/2015, Additional history exists CKD HGB USE SMARTSET 40349 05/08/202205/08, 05/08/2021, 06/16/2019, Additional history exists Influenza Vaccine (FLU shot) (#1) 2024 05/31/2021, 05/24/2020, 07/02/2019, Additional history exists RETIRED - COLONOSCOPY-EVERY 5 YRS AGES 18-100 Discontinued 06/10/2009 Hepatitis B Vaccine Completed 04/26/2023, 3 HPV (Gardasil) Vaccine Aged Out No lo nger eligible based on patient's age to complete this topic MENINGOCOCCAL (MENACTRA/MENVEO) Aged Out No longer eligible based on patient's age to complete this topic documented as of this encounter Medical Devices Not on filedocumented as of this encounter Visit Diagnoses Diagnosis 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
[2024-04-08 07:16] LABS: Basophils # (auto) 0.05 K/uL (0.00-0.20); Basophils % (auto) 0.9 %; Eosinophils # (auto) 0.12 K/uL (0.00-0.50); Eosinophils % (auto) 2.1 %; Hemoglobin 8.9 g/dl (14.0-18.0); Immature Granulocytes # (auto) 0.01 K/uL (0.01-0.20); Immature Granulocytes % (auto) 0.2 %; Lymphocytes # (auto) 2.56 K/uL (1.20-3.40); Lymphocytes % (auto) 45.2 %; Mean Corpuscular Hemoglobin 29.5 pg (25.0-34.0); Mean Corpuscular Hgb Conc 30.7 g/dL (32.0-36.0); Mean Platelet Volume 10.9 fL (9.4-12.4); Monocytes # (auto) 0.57 K/uL (0.11-0.59); Monocytes % (auto) 10.1 %; Neutrophils # (auto) 2.35 K/uL (1.40-6.50); Neutrophils % (auto) 41.5 %; Platelet Count 78 K/uL (130-400); RDW Coefficient of Variation 13.7 % (11.5-14.5); RDW Standard Deviation 48.9 fL (36.4-46.3); Red Blood Count 3.02 M/uL (4.70-6.10); White Blood Count 5.66 K/ul (4.8-10.8)
[2024-04-08 07:30] LABS: Albumin Globulin Ratio 1.7 (0.9-2); Albumin Level 3.1 gm/dl (3.4-5.0); BUN Creatinine Ratio 4.4 (10-20); Bilirubin,Total 0.5 mg/dl (0.2-1.0); Calcium 8.4 mg/dl (8.6-10.3); Creatinine Clr Calc Pharmacy 9.6 ml/min; Est GFR (African American) 10.1 ml/min; Est GFR (Non-African American) 8.7 ml/min; Globulin 1.8 gm/dl (2.5-4.0); Potassium 4.5 mmol/L (3.5-5.1); Total Protein 4.9 gm/dl (6.0-8.3)
[2024-04-08] MEDS: amLODIPine BESYLATE 5 MG TAB PO SCH (07:53)
[2024-04-08] MEDS: FUROSEMIDE 40 MG TAB PO SCH (07:53)
[2024-04-08] MEDS: ROSUVASTATIN CALCIUM 10 MG TAB PO SCH (07:54)
[2024-04-08] MEDS: IRON SUCROSE 200 MG in 0.9 % SODIUM CHLORIDE 100 ML IV SCH (07:55)
[2024-04-08] MEDS: TAMSULOSIN HCL 0.4 MG CAP PO SCH (07:55)
[2024-04-08] MEDS: EPOETIN ALFA 40,000 UNITS/ML VIAL IV ONE (10:21)
--- NOTE | 2024-04-08 10:48 | Nephrology Progress Note ---
Date of Service April 08, 2024 Assessment & Plan (1) End stage renal disease on dialysis: (2) Episode of syncope: (3) Hypertension: (4) Anemia due to chronic kidney disease: Plan End-stage kidney disease, recently started on hemodialysis a week ago, has been tolerating dialysis well. Admitted to hospital after a brief syncopal episode and fall at home. Extensive workup showing scalp laceration but no intracranial bleeding. Blood pressure slightly elevated with evidence of volume overload including ascites, bilateral pleural effusion but respiratory status acceptable. Electrolyte acceptable. --tolerating dialysis --continue on Renvela 1 tab 3 times daily with meal --Venofer 200 mg IV daily for 3 dose, Epogen 40,000 units 1 dose now --Left arm nephrology precaution, dose medications for GFR less than 10 --Avoid IV fluid Admission and Anticipated Discharge Date Admission Date: April 07, 2024 Subjective Jesús was seen and evaluated during dialysis. Overall doing well. denies any concerns. Review of Systems Review of Systems: Detailed review of system was done and pertinent positives and negatives are mentioned above. Physical Exam Constitutional: WD/WN, vitals as above no acute distress Respiratory: no respiratory distress and no cough Cardiovascular: Rate/Rhythm: regular rate and regular rhythm Heart Sounds: normal S1 and normal S2 Extremities: + AV fistula (left RC AVF with thrill and bruit); no edema Musculoskeletal: Extremities: extremities normal to inspection Skin: + skin atrophy and + ecchymosis Neurologic: no focal motor deficits Psychiatric: Orientation: alert and oriented x 3 Affect: euthymic affect Results & Data Vital Signs (Past 12 Hours) Vital Signs Temp Pulse Pulse Resp BP Pulse Ox O2 Del Method 04/08/24 09:04 36.8 C 70 04/08/24 08:00 Room Air 04/08/24 07:33 36.6 C 68 18 155/74 H 97 Room Air 04/08/24 02:35 36.7 C 78 16 161/80 H 97 Room Air PG Care Time/CCT Total # of Minutes Spent Total Time Spent with Patient: Total time spent is greater than 50% in coordination of care (as documented) at patient's floor/unit and/or counseling patient: Coding Level of Care Code 21059 SUB INP/OBS CARE 2/35MIN Diagnoses End stage renal disease on dialysis N18.6; Z99.2 Episode of syncope R55 Hypertension I10 Anemia due to chronic kidney disease N18.9; D63.1
--- NOTE | 2024-04-08 12:09 | Hospitalist Progress Note ---
Date of Service April 08, 2024 Assessment & Plan (1) Episode of syncope: Plan: Probably from transient hypotension. Now resolved. Amlodipine has been decreased from 10 mg down to 5 mg daily. Telemetry. (2) End stage renal disease on dialysis: Plan: Appreciate nephrology consultation and recommendations. Hemodialysis according to her regular schedule (3) Infarction of left thalamus: Plan: Old. Noted on brain MRI scan. Not acute. He is asymptomatic in respect to this. Continue current medical management (4) Elevated troponin: Plan: Mild. No evidence of acute coronary syndrome. No chest pain. Suspect demand ischemia (5) Cirrhosis: Plan: Admission CT scan revealed evidence of cirrhosis with splenomegaly and moderate ascites. No intervention necessary at this time (6) Abdominal aneurysm: Plan: Admission abdominal CT scan reveals an increase in caliber of the infrarenal abdominal aortic aneurysm. He will follow-up as an outpatient with vascular surgery who he has seen in the past. (7) HTN (hypertension), benign: Plan: Amlodipine dose was decreased from 10 mg to 5 mg daily which she was on before. Transient hypotension is likely because of his syncopal episode. Plan Hopeful discharge to home tomorrow, April 09 Admission and Anticipated Discharge Date Admission Date: April 07, 2024 Subjective The patient was seen while in hemodialysis. He is alert and oriented and asymptomatic. I suspect his syncopal episode was due to transient hypotension. He denies palpitations. Amlodipine has been decreased to 5 mg daily. Hopefully he can go home tomorrow, April 09 Review of Systems 2 Review of Systems: Constitutional-no fever or chills ENT-no blurred vision, no double vision, no epistaxis, no sore throat Respiratory-no cough, no wheezing, no shortness of breath Cardiac-no palpitations, no chest pain, no syncope GI-no nausea, vomiting, diarrhea, melena, hematochezia -no urinary retention, no urinary incontinence, no dysuria, no hematuria Musculoskeletal-no joint pain, no muscle tenderness Skin-no bruising, no rashes, no pruritus Neuro-no isolated weakness, no paresthesia, no weakness Psych-no depression, no anxiety Physical Exam 2 Physical Exam: General-alert and oriented x3, no fever, no chills HEENT-head atraumatic and normocephalic, pupils equal and reactive to light, extraocular muscles intact Neck-no lymphadenopathy or thyromegaly, trachea midline Chest-clear to auscultation. No rales, wheezing or rhonchi Cardiac-regular rate and rhythm, normal S1 and S2 Abdomen-normal bowel sounds, no hepatosplenomegaly Extremities-no cyanosis, clubbing, or edema Neuro-cranial nerves II through XII intact, motor and sensory function within normal limits, strength symmetrical, no focal deficits Psych-normal affect, normal mood Results & Data Results & Data Vital Signs (Past 12 Hours) Vital Signs Temp Pulse Pulse Pulse Resp BP BP 04/08/24 10:30 66 121/74 04/08/24 10:00 61 117/64 04/08/24 09:30 71 134/67 04/08/24 09:13 71 146/80 H 04/08/24 09:04 36.8 C 70 04/08/24 08:00 04/08/24 07:33 36.6 C 68 18 155/74 H 04/08/24 02:35 36.7 C 78 16 161/80 H Pulse Ox O2 Del Method 04/08/24 10:30 04/08/24 10:00 04/08/24 09:30 04/08/24 09:13 04/08/24 09:04 04/08/24 08:00 Room Air 04/08/24 07:33 97 Room Air 04/08/24 02:35 97 Room Air Laboratory Results 04/08/24 06:29 04/08/24 06:29 PG Care Time/CCT Total # of Minutes Spent Total Time Spent with Patient: Total time spent is greater than 50% in coordination of care (as documented) at patient's floor/unit and/or counseling patient: Coding Level of Care Code 79661 SUB INP/OBS CARE 3/50MIN Diagnoses Episode of syncope R55 End stage renal disease on dialysis N18.6; Z99.2 Infarction of left thalamus I63.81 Elevated troponin R79.89 Cirrhosis K74.60 Abdominal aneurysm I71.4 HTN (hypertension), benign I10
--- NOTE | 2024-04-08 14:31 | XCELERA ---
[id number]
[2024-04-08] MEDS: MELATONIN 3 MG TAB PO PRN (23:13)
[2024-04-09 06:51] LABS: Basophils # (auto) 0.03 K/uL (0.00-0.20); Basophils % (auto) 0.5 %; Eosinophils # (auto) 0.11 K/uL (0.00-0.50); Eosinophils % (auto) 1.8 %; Hematocrit (blood only) 28.7 % (42.0-52.0); Hemoglobin 8.9 g/dl (14.0-18.0); Immature Granulocytes # (auto) 0.02 K/uL (0.01-0.20); Immature Granulocytes % (auto) 0.3 %; Lymphocytes # (auto) 2.99 K/uL (1.20-3.40); Lymphocytes % (auto) 48.5 %; Mean Corpuscular Hemoglobin 30.1 pg (25.0-34.0); Mean Platelet Volume 10.5 fL (9.4-12.4); Monocytes # (auto) 0.59 K/uL (0.11-0.59); Monocytes % (auto) 9.6 %; Neutrophils # (auto) 2.43 K/uL (1.40-6.50); Neutrophils % (auto) 39.3 %; Platelet Count 83 K/uL (130-400); RDW Coefficient of Variation 13.6 % (11.5-14.5); RDW Standard Deviation 48.6 fL (36.4-46.3); Red Blood Count 2.96 M/uL (4.70-6.10); White Blood Count 6.17 K/ul (4.8-10.8)
[2024-04-09 07:09] LABS: Albumin Globulin Ratio 1.6 (0.9-2); Albumin Level 3.1 gm/dl (3.4-5.0); BUN Creatinine Ratio 4.3 (10-20); Bilirubin,Total 0.5 mg/dl (0.2-1.0); Calcium 8.4 mg/dl (8.6-10.3); Creatinine Clr Calc Pharmacy 12.7 ml/min; Est GFR (African American) 14.8 ml/min; Est GFR (Non-African American) 12.7 ml/min; Globulin 1.9 gm/dl (2.5-4.0); Magnesium 1.9 mg/dl (1.7-2.4); Potassium 4.4 mmol/L (3.5-5.1)
--- NOTE | 2024-04-09 10:49 | Nephrology Progress Note ---
Date of Service April 09, 2024 Assessment & Plan (1) End stage renal disease on dialysis: (2) Episode of syncope: (3) Hypertension: (4) Anemia due to chronic kidney disease: Plan End-stage kidney disease, recently started on hemodialysis a week ago, has been tolerating dialysis well. Admitted to hospital after a brief syncopal episode and fall at home. Extensive workup showing scalp laceration but no intracranial bleeding. Blood pressure and volume status improved. Electrolyte acceptable. --Plan for dialysis tomorrow. We discuss different dialysis options and the outcome without dialysis at length. He has been thinking about stopping dialysis going forward although did not make a decision yet. Encouraged him to take time and discuss with his family and make a decision. Until he makes the decision he is open to continuing dialysis as current schedule of Saturday, Saturday, Saturday. --continue on Renvela 1 tab 3 times daily with meal --Venofer 200 mg IV daily for 3 dose, Epogen 40,000 units 1 dose given on 04/08/2024 --Left arm nephrology precaution, dose medications for GFR less than 10 --Avoid IV fluid Admission and Anticipated Discharge Date Admission Date: April 07, 2024 Subjective Jesús was seen and evaluated this morning. He was lying in bed, comfortable, denied any symptoms. Tolerated dialysis yesterday for 3.5 hours, had 2 L UF, uneventful. Blood pressure, volume status acceptable. Electrolyte acceptable. He has been thinking about dialysis going forward whether he really wants to continue on dialysis or not. Review of Systems Review of Systems: Detailed review of system was done and pertinent positives and negatives are mentioned above. Physical Exam Constitutional: WD/WN, vitals as above no acute distress Eyes: + anicteric sclerae Neck: normal visual inspection Respiratory: no respiratory distress and no cough Cardiovascular: Rate/Rhythm: regular rate and regular rhythm Heart Sounds: normal S1 and normal S2 Extremities: + AV fistula (left RC AVF with thrill and bruit); no edema Musculoskeletal: Extremities: extremities normal to inspection Skin: + skin atrophy and + ecchymosis Neurologic: no focal motor deficits Psychiatric: Orientation: alert and oriented x 3 Affect: euthymic affect Results & Data Vital Signs (Past 12 Hours) Vital Signs Temp Pulse Resp BP Pulse Ox O2 Del Method 04/09/24 07:28 36.6 C 70 18 147/67 H 95 Room Air 04/09/24 02:35 36.7 C 60 16 158/76 H 96 Room Air 04/08/24 22:59 36.7 C 71 20 149/83 H 94 Room Air PG Care Time/CCT Total # of Minutes Spent Total Time Spent with Patient: Total time spent is greater than 50% in coordination of care (as documented) at patient's floor/unit and/or counseling patient: Coding Level of Care Code 30365 SUB INP/OBS CARE 2/35MIN Diagnoses End stage renal disease on dialysis N18.6; Z99.2 Episode of syncope R55 Hypertension I10 Anemia due to chronic kidney disease N18.9; D63.1
--- NOTE | 2024-04-09 11:55 | Discharge Summary ---
Date of Service April 09, 2024 Admission HPI Per Admitting Provider Constantine is a 75-year-old male with past medical history significant for end- stage renal disease on hemodialysis MWF, abdominal aortic aneurysm, left common iliac artery aneurysm, thoracic ascending aortic aneurysm, and bilateral carotid artery disease status post bilateral carotid endarterectomies, CLL, hypertension, anemia, BPH who presented to [facility] ED via EMS on 04/07/2024 after experiencing a syncopal episode at home. Per the ED staff, the patient was at home and had been outside with family when he tried to steps to go to the pool. He had sudden onset of lightheadedness and lost consc iousness falling backwards and hitting his head off the concrete. He reportedly regained consciousness quickly and was without signs of seizure-like activity. He was noted to be tachypneic On arrival at 27 but was otherwise stable. A platelet count of 74 (down from 90 on 03/05/2024), stable electrolytes, initial high-sensitivity troponin of 78 with 2-hour repeat down to 65. CT of the brain without contrast was read as negative for acute posttraumatic intracranial abnormality or calvarial fractures. Posterior scalp contusion with laceration. 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 CT of the cervical spine without contrast, CT of the thoracic spine, and CT of the chest without contrast was read as negative for acute traumatic findings. CT of the abdomen pelvis without contrast was read as negative for acute traumatic findings. However did note a significant increase in caliber of a 5.8 x 4.7 cm infrarenal abdominal aortic aneurysm since CT of April 15, 2019. Interval dilation of the left common iliac artery. Nonemergent vascular surgery consultation was recommended. He was noted to have cirrhosis with splenomegaly moderate amount of abdominal pelvic ascites with right colon wall thickening likely related to poor bleeding nonspecific colitis could appear similar. The ED staff did speak with Dr. Nicole vascular surgery who explained that the patient would need to be evaluated on a nonemergent basis in the near future but would not require surgical intervention during this admission. Prior to admission the patient was given a dose of IV Tylenol. Patient was lying in bed in no acute distress at the time of exam with his bedside, history was obtained from both. They explained that the patient has recently started dialysis over the past week, he has had a total of 4 dialysis sessions with his last session on 04/06/2024. We explained that his dose of amlodipine was recently increased from 5 mg to 10 mg daily. He notes some increased ambulatory dysfunction over the past "few weeks" as if he is off balance. Woke up this morning in his normal state of health he did take his a.m. medications including antihypertensives. While walking up their pool steps he suddenly lost consciousness falling backwards hitting his head on the concrete and losing consciousness for only "a few seconds". Since his fall he has posterior head and cervical spine pain but otherwise feels his normal self. Denies changes in vision, chest pain, shortness of breath, palpitations, abdominal pain, nausea/vomiting, dysuria/hematuria, diarrhea, and lower extremity swelling in the recent past. When asked about the cirrhotic morphology of his liver on CT the abdomen pelvis today he and his state that they have never been told about this. I did explain to them that recent nephrology and primary care notes mention a previous CT of the abdomen and pelvis noting cirrhosis and that his PCP gave him a referral for hepatology but he reportedly missed the appointment. When discussing the old infarct on CT scan I deny a previous known history of stroke. We discussed CODE STATUS, he wishes to be a conditional code as he would not want CPR or cardiac defibrillation in the event of cardiac arrest. He would want a trial of intubation in the event of respiratory arrest. His is his power of collections attorney. Please refer to Dr. Henderson's attestation for any changes to the treatment plan. Principal Diagnosis Syncope from suspected orthostatic hypotension, mechanical fall, closed head injury, troponin elevation without acute coronary syndrome Discharge Exam General-alert and oriented x3, no fever, no chills HEENT-head atraumatic and normocephalic, pupils equal and reactive to light, extraocular muscles intact Neck-no lymphadenopathy or thyromegaly, trachea midline Chest-clear to auscultation. No rales, wheezing or rhonchi Cardiac-regular rate and rhythm, normal S1 and S2 Abdomen-normal bowel sounds, no hepatosplenomegaly Extremities-no cyanosis, clubbing, or edema Skinposterior scalp laceration with [address] healing without incident Neuro-cranial nerves II through XII intact, motor and sensory function within normal limits, strength symmetrical, no focal deficits Psych-normal affect, normal mood Discharge Data Allergies Allergy/AdvReac Type Severity Reaction Status Date / Time Penicillins Allergy Unknown A CHILD Verified 03/25/24 14:56 COULD NOT TAKE Consultations 04/07/24 14:37 Consult Nephrology Routine Ordered Studies 04/07/24 11:03 CT head/brain wo con Stat CT neck [CT cervical spine wo con] Stat CT thoracic spine wo con Stat 04/07/24 11:33 CT Abd and Pelvis [CT abd pelvis wo con] Stat CT chest diagnostic wo con Stat 04/07/24 15:07 MRI Angio Brain [MR angio head wo con] Routine US carotid doppler BI Routine 04/07/24 19:41 MRI Brain [MR brain wo con] Routine Hospital Course (1) Episode of syncope: Probably from transient hypotension. Now resolved. Amlodipine has been decreased from 10 mg down to 5 mg daily. Telemetry. (2) End stage renal disease on dialysis: Appreciate nephrology consultation and recommendations. Hemodialysis according to regular schedule (3) Infarction of left thalamus: Old. Noted on brain MRI scan. Not acute. He is asymptomatic in respect to this. Continue current medical management (4) Elevated troponin: Mild. No evidence of acute coronary syndrome. No chest pain. Suspect demand ischemia (5) Cirrhosis: Admission CT scan revealed evidence of cirrhosis with splenomegaly and moderate ascites. No intervention necessary at this time (6) Abdominal aneurysm: Admission abdominal CT scan reveals an increase in caliber of the infrarenal abdominal aortic aneurysm. He will follow-up as an outpatient with vascular surgery who he has seen in the past. (7) HTN (hypertension), benign: Amlodipine dose was decreased from 10 mg to 5 mg daily which she was on before. Transient hypotension is likely because of his syncopal episode. (8) Closed head injury: Suffered when he had a syncopal episode and fell. He has a posterior scalp laceration with [address] Hemostasis has been achieved. The christi should be removed in about 1 week from when it was placed. Plan Home today, April 09 Total Time Total Time Spent Total Time Spent (In Minutes): 45 minutes Discharge Plan Discharge Items Patient Disposition: Home - Self-Care Reason For Visit: SYNCOPE, ABD ANEURYSM, ELEVATED TROP, Discharge Diagnosis: Syncope, suspected orthostatic hypotension, mechanical fall, closed head injury, posterior scalp laceration Condition on Discharge: Good Activity: Resume your previous activity Non-emergency contact: Primary Care Provider Call non-emergency contact if: your symptoms worsen Follow-up/Referrals: Anna Dhaliwal MD [Primary Care Provider] - Diet: Dialysis Renal Addtl Attending Provider Instructions: Amlodipine has been decreased to 5 mg daily. The scalp laceration Gardiner should be removed in about 7 days from when it was placed Pending Studies at Discharge: No Stand-Alone Forms: [facility] [employer], Smoking Cessation Medications and DC Order Prescriptions: New amlodipine [Norvasc] 5 mg Tablet 5 mg PO DAILY Qty: 30 0RF sevelamer carbonate 800 mg Tablet 800 mg PO TIDM Qty: 0 0RF Continued sodium bicarbonate 650 mg tablet 650 mg PO BID rosuvastatin 10 mg tablet 10 mg PO DAILY Qty: 90 3RF epoetin eris 20,000 unit/mL solution 20,000 unit subcut .weekly Qty: 4 0RF Rx Instructions: Hold for Hgb 11 or greater. To be administered in providers office. Patient to bring own med to office. doxazosin 4 mg tablet 4 mg PO BID (DME) BD SafetyGlide Needle 25 gauge x 5/8" needle See Rx Instructions .Route Qty: 6 3RF Rx Instructions: As directed (DME) BD Syringe 1 mL syringe See Rx Instructions .Route Qty: 6 3RF Rx Instructions: As directed ergocalciferol (vitamin D2) [Vitamin D2] 1,250 mcg (50,000 unit) capsule 50,000 unit PO MONTHLY Qty: 12 0RF Rx Instructions: ON FIRST DAY OF THE MONTH polysaccharide iron complex [Ferrex 150] 150 mg iron capsule 150 mg PO BID tamsulosin 0.4 mg capsule 0.4 mg PO DAILY furosemide 40 mg tablet 40 mg PO DAILY Qty: 30 2RF lorazepam 1 mg tablet 1 mg PO HS oxcarbazepine [Trileptal] 300 mg tablet 300 mg PO BID Discontinued amlodipine 10 mg tablet 10 mg PO DAILY Qty: 90 1RF Discharge Orders: Discharge Order (Routine); Ordered 04/09/24 Ordered By: Rick Chau Admission Data Admit Date/Time: 04/07/24 14:11 Attending Provider: Rick Chau Admit Provider: Riley Henderson Primary Care Provider: Anna Dhaliwal Other Providers: Vandana Marcelino Coding Level of Care Code 01272 INP/OBS DISCH >30 MIN Diagnoses Episode of syncope R55 End stage renal disease on dialysis N18.6; Z99.2 Infarction of left thalamus I63.81 Elevated troponin R79.89 Cirrhosis K74.60 Abdominal aneurysm I71.4 HTN (hypertension), benign I10 Closed head injury S09.90XA
== END 2024-04-09 12:51 | disposition home or self-care (01) | DRG 312 ==
LOC: ED 10:29 → SUATTDRO 14:11 → 2S 14:11

== ENCOUNTER 2024-06-17 05:30 | Inpatient (IN) ==
--- NOTE | 2024-06-08 10:44 | Anesthesiology Consultation ---
Date of Service June 08, 2024 Assessment & Plan Chart Review Chart Review: Acceptable Risk for Surgery and Patient NOT seen in Pre Admission Testing History Surgery Operation Date: 06/17/24 10:50 Proposed Procedures p Percutaneous Endovascular Aneurysm Repair - Nimesh Nicole MD Height/Weight Height: 5 ft 8 in Weight: 61.235 kg Allergies Allergy/AdvReac Type Severity Reaction Status Date / Time Penicillins Allergy Unknown A CHILD Verified 06/05/24 10:21 COULD NOT TAKE Medications Home Medications Medication Instructions Recorded Confirmed Last Taken lorazepam 1 mg tablet 1 mg PO HS 04/15/19 06/05/24 04/14/19 oxcarbazepine 300 mg tablet 300 mg PO BID 03/07/23 06/05/24 Unknown (Trileptal) safety needles 25 gauge x 5/8" (BD #6 ea 03/22/23 06/03/24 Unknown SafetyGlide Needle) syringe (disposable) 1 mL (BD #6 ea 03/22/23 06/03/24 Unknown Syringe) ergocalciferol (vitamin D2) 1,250 50,000 unit PO MONTHLY #12 caps 06/06/23 06/05/24 Unknown mcg (50,000 unit) capsule (Vitamin D2) tamsulosin 0.4 mg capsule 0.4 mg PO QAM 02/20/24 06/05/24 Unknown furosemide 20 mg tablet 20 mg PO Q OTHER DAY #30 tabs 05/06/24 06/05/24 Unknown amlodipine 5 mg tablet 5 mg PO QAM 06/05/24 06/05/24 Unknown calcitriol 0.25 mcg capsule 0.25 mcg PO UD 06/05/24 06/05/24 Unknown finasteride 5 mg tablet 5 mg PO QPM 06/05/24 06/05/24 Unknown rosuvastatin 10 mg tablet 10 mg PO QAM 06/05/24 06/05/24 Unknown Past Medical History Medical History History of chronic lymphocytic leukemia patient denies Bipolar disorder BPH (benign prostatic hyperplasia) Bilateral inguinal hernia COPD (chronic obstructive pulmonary disease) Cirrhosis patient denies Closed head injury syncopal epidsode after dialysis, 03/2024 Hyperlipidemia Stroke patient denies, no deficits Lung cancer Anemia due to chronic kidney disease Infarction of left thalamus End stage renal disease on dialysis Follows with Dr Hernandez, dialysis on Saturday/Saturday HTN (hypertension), benign Abdominal aneurysm 5.8 x 4.7cm imaging March 2024 Elevated prostate specific antigen (PSA) SNHL (sensorineural hearing loss) Squamous cell carcinoma History of diverticulitis Pre-diabetes Past Family History Family History Mother Heart disease Father Stroke Other Family history non-contributory Denies family history of Ovarian cancer Prostate cancer Myocardial infarction Breast cancer Colorectal cancer Past Surgical History Surgical History S/p bilateral carotid endarterectomy History of appendectomy S/P lobectomy of lung Left [id number] CHEMO/NO RADIATION-[facility] Hx of endoscopy UPPER Hx of colonoscopy Hx of oral surgery Social History Smoking Status: Former smoker Smoking cigarettes per day: 20 Do You Dip or Chew Tobacco: No Smoking End Date: 2009 Hx Alcohol Use: No Hx Substance Use: No substance use type: does not use
--- NOTE | 2024-06-16 12:38 | History & Physical Report ---
Date of Service June 16, 2024 Assessment & Plan (1) AAA (abdominal aortic aneurysm) without rupture: Plan: Patient for endovascular repair of his AAA. I have discussed the risks options and benefits of the procedure with the patient. The patient understands the risks options and benefits and agrees to the procedure. History of Present Illness Chief Complaint: AAA Primary Care Provider: Anna Dhaliwal MD Mr. Martinez is an elderly male who presents to vascular surgery clinic for an annual follow-up visit regarding his history of abdominal arctic aneurysm, left common iliac artery aneurysm, thoracic ascending aortic aneurysm, and bilateral carotid disease status post bilateral carotid endarterectomies. Patient states that he feels his overall health has been relatively stable, until recently, he feels he has been retaining significant amounts of fluid in his abdomen and lower extremities over the past month or so. He denies any dyspnea or orthopnea, but his states that he has started sleeping for 4 to 5 hours in the middle of the day and he never did that before. He also admits to poor appetite and diarrhea. He denies any fevers chills nausea vomiting, chest pain, shortness of breath, lower extremity claudication, rest pain, nonhealing wounds or ulcerations. Patient did have a CT scan of the chest, and possibly the abdomen/pelvis done at [address] [place] [address], but these reports and images are not available for review today. His carotid ultrasound performed prior to today's appointment demonstrates widely patent bilateral carotid endarterectomy sites without evidence of restenosis. His aortoiliac ultrasound demonstrates an infrarenal abdominal aortic aneurysm measuring 5.0 cm in its largest diameter, having previously measured 4.1 cm 1 year ago. Additionally his left common iliac artery aneurysm measures 2.4 cm, which is unchanged in comparison to last year. No chest CT imaging was available for our review today, but patient believes his recent chest CT scan showed no changes in his thoracic aneurysm. CT scan shows a 5.8 cm infrarenal aortic aneurysm. It was difficult to see the iliacs and the involvement of the iliac artery with aneurysmal disease due to a noncontrast CT. He does have a good proximal neck for an endograft Repair. Allergies Allergy/AdvReac Type Severity Reaction Status Date / Time Penicillins Allergy Unknown A CHILD Verified 06/05/24 10:21 COULD NOT TAKE Home Medications Medication Instructions Recorded Confirmed Type lorazepam 1 mg tablet 1 mg PO HS 04/15/19 06/05/24 History oxcarbazepine 300 mg tablet 300 mg PO BID 03/07/23 06/05/24 History (Trileptal) safety needles 25 gauge x 5/8" (BD #6 ea 03/22/23 06/03/24 Rx SafetyGlide Needle) syringe (disposable) 1 mL (BD #6 ea 03/22/23 06/03/24 Rx Syringe) ergocalciferol (vitamin D2) 1,250 50,000 unit PO MONTHLY #12 caps 06/06/23 06/05/24 Rx mcg (50,000 unit) capsule (Vitamin D2) tamsulosin 0.4 mg capsule 0.4 mg PO QAM 02/20/24 06/05/24 History furosemide 20 mg tablet 20 mg PO Q OTHER DAY #30 tabs 05/06/24 06/05/24 Rx amlodipine 5 mg tablet 5 mg PO QAM 06/05/24 06/05/24 History calcitriol 0.25 mcg capsule 0.25 mcg PO UD 06/05/24 06/05/24 History finasteride 5 mg tablet 5 mg PO QPM 06/05/24 06/05/24 History rosuvastatin 10 mg tablet 10 mg PO QAM 06/05/24 06/05/24 History Past Med/Surg History Problem List (Updated 06/16/24 @ 12:37 by Nimesh Nicole MD) AAA (abdominal aortic aneurysm) without rupture Bilateral inguinal hernia Infrarenal abdominal aortic aneurysm (AAA) without rupture Closed head injury Episode of syncope Cirrhosis Elevated troponin CKD (chronic kidney disease), stage V Anemia Pulmonary nodules Abnormal CT of the abdomen Encounter to discuss test results Elevated PSA Benign prostatic hyperplasia with elevated prostate specific antigen (PSA) (Chronic) Chronic obstructive pulmonary disease (Chronic) Chronic lymphocytic leukemia (Chronic) Kidney cysts noted on 06/05/18 MRI Hyperlipidemia (Chronic) Medical History History of chronic lymphocytic leukemia patient denies Bipolar disorder BPH (benign prostatic hyperplasia) Bilateral inguinal hernia COPD (chronic obstructive pulmonary disease) Cirrhosis patient denies Closed head injury syncopal epidsode after dialysis, 03/2024 Hyperlipidemia Stroke patient denies, no deficits Lung cancer Anemia due to chronic kidney disease Infarction of left thalamus End stage renal disease on dialysis Follows with Dr Hernandez, dialysis on Saturday/Saturday HTN (hypertension), benign Abdominal aneurysm 5.8 x 4.7cm imaging March 2024 Elevated prostate specific antigen (PSA) SNHL (sensorineural hearing loss) Squamous cell carcinoma History of diverticulitis Pre-diabetes Surgical History S/p bilateral carotid endarterectomy History of appendectomy S/P lobectomy of lung Left [id number] CHEMO/NO RADIATION-[facility] Hx of endoscopy UPPER Hx of colonoscopy Hx of oral surgery Family History Mother Heart disease Father Stroke Other Family history non-contributory Denies family history of Ovarian cancer Prostate cancer Myocardial infarction Breast cancer Colorectal cancer Social History Smoking Status: Former smoker Cigarettes Per Day: 20; Smoking End Date: 2009; Second Hand Exposure: No; Do You Dip or Chew Tobacco: No; Tobacco Cessation Education Requested by Patient: No Hx Alcohol Use: No Hx Substance Use: No Preferred Language: Turkish Communication Ability: Effective Communication Ability Comment: SOME HARD OF HEARING / NO HEARING AIDES Visual Impairment: No Limitations 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: No Beliefs That Will Affect Care: None marital status: Current Living Situation: Spouse Current Living Situation Comment: Home with spouse current occupational status: employed and retired 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 [employer] How many Children do You have: 2 Other Information That Helps Us Care for You: No Feels Safe at Home: Yes Safety Concerns: Feels Safe At This Time Childhood Exposure to Second-Hand Smoke: No Diet: regular Diet Comment: avoids red meat caffeine: No Dental Care, Regularly: Yes Physical Activity Frequency: Daily Physical Activity Frequency Comment: Walking Seatbelt Use: always Sunscreen Use: Yes Assistive Devices: Glasses Review of Systems All systems reviewed & are unremarkable except as noted in HPI & below Physical Exam Physical Exam: Constitutional: In general patient is a chronically ill elderly male in no distress. He is alert and oriented without focal deficits, but is moving slower than previously. His heart is regular, his lungs are clear with decreased breath sounds. His abdomen is protuberant with what appears to be fluid overload. His brachial and radial pulses are +3. His left radiocephalic AV fistula has an excellent thrill and bruit throughout. His lower extremity distal pulses are +2. He has +4 edema of the lower extremities from the knees to the toes.
[2024-06-17 05:51] LABS: Basophils # (auto) 0.06 K/uL (0.00-0.20); Basophils % (auto) 0.7 %; Hematocrit (blood only) 26.9 % (42.0-52.0); Hemoglobin 8.5 g/dl (14.0-18.0); Immature Granulocytes # (auto) 0.02 K/uL (0.01-0.20); Immature Granulocytes % (auto) 0.2 %; Lymphocytes # (auto) 3.38 K/uL (1.20-3.40); Lymphocytes % (auto) 39.6 %; Mean Corpuscular Hemoglobin 30.2 pg (25.0-34.0); Mean Corpuscular Hgb Conc 31.6 g/dL (32.0-36.0); Mean Corpuscular Volume 95.7 fL (80.0-100.0); Mean Platelet Volume 9.7 fL (9.4-12.4); Monocytes # (auto) 0.99 K/uL (0.11-0.59); Monocytes % (auto) 11.6 %; Neutrophils # (auto) 4.09 K/uL (1.40-6.50); Neutrophils % (auto) 47.9 %; Platelet Count 115 K/uL (130-400); RDW Coefficient of Variation 15.4 % (11.5-14.5); RDW Standard Deviation 54.1 fL (36.4-46.3); Red Blood Count 2.81 M/uL (4.70-6.10); White Blood Count 8.54 K/ul (4.8-10.8)
[2024-06-17] MEDS: SODIUM BICARBONATE 8.4% 100 MEQ in WATER, STERILE 1,000 ML IV SCH (05:58)
[2024-06-17] MEDS: SODIUM CHLORIDE 0.9% 1,000 ML IV SCH (05:59)
[2024-06-17 06:06] LABS: BUN Creatinine Ratio 7.3 (10-20); Creatinine Clr Calc Pharmacy 14.3 ml/min; Est GFR (African American) 16.5 ml/min; Est GFR (Non-African American) 14.2 ml/min; Potassium 4.7 mmol/L (3.5-5.1)
[2024-06-17] MEDS ORDERED: LIDOCAINE 2% 2 ML VIAL/AMP(20MG/ML) INFIL ONE (06:59)
[2024-06-17] MEDS ORDERED: PROPOFOL IV EMULSION 10 MG/ML 20 ML VIAL IV ONE (06:59)
[2024-06-17] MEDS ORDERED: fentaNYL citrate PF 100 MCG/2 ML VIAL ONE (06:59)
[2024-06-17] MEDS ORDERED: DEXAMETHASONE SOD INJ 4 MG/ML VIAL ONE (06:59)
[2024-06-17] MEDS ORDERED: ROCURONIUM BROMIDE 10 MG/ML 5 ML VIAL IV ONE ×2 (06:59→09:42)
[2024-06-17] MEDS ORDERED: ONDANSETRON INJ 2 MG/ML 2 ML VIAL ONE (06:59)
[2024-06-17] MEDS ORDERED: PHENYLEPHRINE HCL 10 MG/ML VIAL ONE (07:00)
[2024-06-17] MEDS ORDERED: SUGAMMADEX SODIUM 200 MG/2 ML VIAL IV ONE (07:00)
[2024-06-17] MEDS: ALBUT/IPRATROP 3MG/0.5MG NEB 3 ML VIAL NEB STA (07:45)
--- NOTE | 2024-06-17 07:45 | History & Physical Bridge Note ---
Date of Service June 17, 2024 History & Physical Bridge Note I have examined the patient, reviewed the History & Physical and in the interval since the performance of the History & Physical I have noted the following changes of clinical significance: no changes noted
[2024-06-17] MEDS ORDERED: ATROPINE SULFATE 0.1 MG/ML 10ML SYR IV PRN (07:58)
[2024-06-17] MEDS ORDERED: ePHEDrine sulfate 50 MG/ML AMP IV PRN (07:58)
[2024-06-17] MEDS ORDERED: ONDANSETRON INJ 2 MG/ML 2 ML VIAL IV PRN ×2 (07:58→12:44)
[2024-06-17] MEDS ORDERED: HEPARIN SOD (PORCINE) 1000 UNIT/ML ONE (09:43)
[2024-06-17] MEDS ORDERED: ePHEDrine sulfate 50 MG/5 ML SYR ONE (09:43)
--- NOTE | 2024-06-17 09:58 | Post Operative Brief Note ---
Immediate Post Op Note Date of Surgery June 17, 2024 Pre & Post Diagnosis Operation Date: 06/17/24 08:00 Pre-Op Diagnosis: abdominal aortic aneurysm Post-Op Diagnosis: abdominal aortic aneurysm I identified the patient and participated in the time-out.: Yes Procedure Operation Date: 06/17/24 08:00 Actual Procedures p Percutaneous Endovascular Abdominal Aortic Aneurysm Repair, Mechanical closure of Bilateral Femoral Arteries(Bilateral) - Nimesh Nicole MD Surgeon Nimesh Nicole MD Team Psychologist MD Jaja Estimated Blood Loss 50 Findings Consistent with Post-Op Diagnosis Drains Torres Catheter (Placed in OR) Anesthesia Type General Complications none Disposition Accompanied Patient To Recovery: No Disposition: Recovery Room
--- NOTE | 2024-06-17 10:00 | Operative Report ---
Post Operative Report Pre & Post Diagnosis Operation Date: 06/17/24 08:00 Pre-Op Diagnosis: abdominal aortic aneurysm Post-Op Diagnosis: abdominal aortic aneurysm I identified the patient and participated in the time-out.: Yes Procedure Operation Date: 06/17/24 08:00 Actual Procedures p Percutaneous Endovascular Abdominal Aortic Aneurysm Repair, Right Iliac Extension, Mechanical closure of Bilateral Femoral Arteries(Bilateral) - Nimesh Nicole MD Surgeon Nimesh Nicole MD Vp Global Tonio Bush MD Estimated Blood Loss 50 Findings Consistent with Post-Op Diagnosis On initial aortogram a large infrarenal AAA was present. Following deployment of endograft, there was exclusion of the aneurysm. No Type 1 or 3 endoleak was visualized. There was a small type 2 endoleak delayed filling from lumbar arteries. The bilateral renal arteries, bilateral internal iliac arteries and femoral arteries were patent at completion Specimens None Anesthesia Type General Complications None Disposition Accompanied Patient To Recovery: No Indications Constantine Martinez is a 78 year old gentleman with a AAA, infrarenal, of greater than 5.5cm. He is asymptomatic however his aneurysm does meet size criteria for repair. After discussion of the risks and benefits patient elected to undergo a percutaneous EVAR for repair of his AAA. Description of Procedure The patient was taken to the operating room suite and placed in the supine position. The abdomen, bilateral groins, and bilateral thigh was then prepped and draped in a sterile manner. Using ultrasound guidance, the right common femoral artery was accessed using micropuncture technique. Angled glide wire was then inserted. A small skin incision was made at the skin site of entry and subcutaneous tissue was dilated using a hemostat. A 18Fr Manta measuring device was inserted to dilate the artery and measure depth of 3cm. The measuring device was then exchanged for an 8Fr sheath over the wire. The wire was then exchanged for a Gonzáles wire. An 18Fr DrySeal sheath was then advanced into the infrarenal aorta under fluoroscopic imaging. Attention was then turned to the left groin where the left common femoral artery was accessed using micropuncture technique. An angled glide wire was then inserted. A small skin incision was made at the skin site of entry and subcutaneous tissue was dilated using a hemostat. A 14Fr Manta measuring device into the left common femoral artery over the angled glide wire, measuring a depth of 2.5cm. The measuring device was then exchanged for an 8Fr sheath over the wire. The wire was then exchanged for a Lunderquist wire. An 14Fr DrySeal sheath was then advanced into the infrarenal aorta under fluoroscopic imaging. On the right side the main body device of the [place] Excluder, 32mm x 14.5 x 14cm was advanced up to the level of about L2. A pigtail catheter was advanced over the wire on the left, the wire was removed and the pigtail was connected to the power injector. An aortogram was taken and the level of the inferior origin of the bilateral renal arteries were marked. The main body device was deployed to the opening of the contralateral gate. From the left side, the pigtail catheter was exchanged for an angled catheter over an angled glide wire. The contralateral gate was cannulated using an angled glide wire. A pigtail was then advanced to the top of the graft on the left and an image was taken marking the origin of the common and internal iliac artery on the left. An appropriately sized 23mm x12 cm [place] limb was then advanced and deployed. Attention was moved to the right side where an appropriately sized 16mm x10cm limb was deployed. The proximal graft, origin of bilateral limb at the flow divider, and the distal limbs were then ballooned using hand insufflation. A completion angiogram was performed demonstrating a small amount of contrast extravasation at the proximal portion of the graft that did not fill the aneurysm sac. The decision was then made to place an aortic cuff measuring 32mm x 4.5cm from the left sided access just above the proximal end point of the main body. Prior to this our sheath was upsized to 18Fr. Cuff was deployed in appropriate position. This was ballooned with hand insufflation. Completion angiogram demonstrated improvement with no contrast extrav at the proximal portion of the graft with delayed filling of the aneurysm sac from a type 2 endoleak due to lumbar arteries. Just below this there was complete seal of the graft to the aortic wall. Bilateral renal arteries and internal iliac arteries patent with brisk filling. The left DrySeal sheath was exchanged for the 18Fr Manta device. The Manta was deployed. Adequate hemostasis was obtained. Pressure was held. The right DrySeal sheath was exchanged for the 18Fr Manta device. The Manta was deployed. Adequate hemostasis was obtained. Pressure was held. Patient was extubated and taken to the PACU in stable condition. A total of 12.6min of fluoroscopy time, 205 mGy and 134cc contrast used for the duration of the case. Dr. Nicole was present and scrubbed for the entire procedure. I attest to the content of the Intraoperative Record and any orders documented therein. Any exceptions are noted below. Supervising Physician Co-Signing Physician Notes Nimesh Nicole MD
[2024-06-17] MEDS: VISIPAQUE IV PRN (10:08)
[2024-06-17 11:06] LABS: Hematocrit (blood only) 22.3 % (42.0-52.0); Hemoglobin 7.1 g/dl (14.0-18.0)
[2024-06-17 11:20] LABS: BUN Creatinine Ratio 7.1 (10-20); Calcium 8.2 mg/dl (8.6-10.3); Creatinine Clr Calc Pharmacy 13.9 ml/min; Est GFR (African American) 15.9 ml/min; Est GFR (Non-African American) 13.7 ml/min; Magnesium 2.1 mg/dl (1.7-2.4); Potassium 4.8 mmol/L (3.5-5.1)
[2024-06-17 11:26] LABS: INR 1.1 (0.9-1.1); Prothrombin Time 11.9 Seconds (9.0-12.0)
[2024-06-17] MEDS: fentaNYL citrate PF 100 MCG/2 ML VIAL IV PRN (11:28)
[2024-06-17 11:55] LABS: Partial Thromboplastin Time 82 Seconds (21-31)
[2024-06-17] MEDS ORDERED: ceFAZolin 2000MG 2,000 MG/15 ML SYR IV SCH (12:44)
[2024-06-17] MEDS ORDERED: MoRPHine SULFATE 4 MG/ML 1 ML CARP\\VIAL IV PRN (12:44)
[2024-06-17] MEDS: HYDROCORTISONE SOD SUCCINATE 100 MG/2 ML VIAL IV SCH (12:53)
[2024-06-17] MEDS: BUPIVACAINE/EPINEPHRINE 0.5% MPF 1:200,000 30 ML VIAL ONE (12:53)
[2024-06-17] MEDS: LIDOCAINE 1% LOCAL 20 ML VIAL ONE ×2 (12:53)
[2024-06-17] MEDS: ceFAZolin 2000MG 2,000 MG/15 ML SYR IV SCH (13:12)
--- NOTE | 2024-06-17 13:25 | Anesthesiology Progress Note ---
Date of Service June 17, 2024 Anesthesia Post Procedure Vital Signs Vital Signs: Temp Pulse Pulse Resp BP BP BP 06/17/24 12:44 36.6 C 06/17/24 12:33 06/17/24 12:32 36.6 C 06/17/24 12:30 79 17 06/17/24 12:20 134/69 06/17/24 11:45 37 C 72 16 139/72 127/66 06/17/24 11:30 72 18 152/52 H 06/17/24 11:15 68 16 135/70 152/53 H 06/17/24 11:05 70 17 155/53 H 158/54 H 06/17/24 10:55 70 17 155/53 H 142/69 H 06/17/24 10:45 70 17 161/54 H 136/67 06/17/24 10:35 69 17 132/67 118/51 L 06/17/24 10:25 68 14 132/67 133/62 06/17/24 10:16 36.2 C L 74 16 147/69 H 06/17/24 06:00 36.6 C 66 20 172/77 H Pulse Ox O2 Del Method O2 Flow Rate 06/17/24 12:44 06/17/24 12:33 Room Air 06/17/24 12:32 06/17/24 12:30 94 Room Air 06/17/24 12:20 06/17/24 11:45 98 Nasal Cannula 2 06/17/24 11:30 98 Nasal Cannula 2 06/17/24 11:15 99 Nasal Cannula 2 06/17/24 11:05 99 Nasal Cannula 2 06/17/24 10:55 98 Nasal Cannula 2 06/17/24 10:45 97 Nasal Cannula 4 06/17/24 10:35 97 Nasal Cannula 4 06/17/24 10:25 97 Nasal Cannula 4 06/17/24 10:16 95 Nasal Cannula 4 06/17/24 06:00 98 Room Air Pain Intensity Lower Back: Pain Intensity: 3 Transfer of Care Handoff Completed per policy Notes Mental Status: alert / awake / arousable Patient Amnestic to Procedure: Yes Nausea / Vomiting: adequately controlled Pain: adequately controlled Airway Patency, RR, SpO2: stable & adequate BP & HR: stable & adequate Hydration State: stable & adequate Anesthetic Complications: no major complications apparent and Pt Satisfied with anesthetic care
[2024-06-17] MEDS: FUROSEMIDE 20 MG TAB PO SCH (13:28)
[2024-06-17] MEDS: CALCITRIOL 0.25 MCG CAPSULE PO SCH (13:28)
[2024-06-17] MEDS: D5W AND 1/2NSS 1,000 ML IV SCH (13:29)
[2024-06-17] MEDS: CLINDAMYCIN/D5W 900 MG/50 ML PREMIX BAG IV SCH (14:37)
[2024-06-17] MEDS ORDERED: D5W AND 1/2NSS 1,000 ML IV SCH (14:45)
[2024-06-17] MEDS: LORazepam 1 MG TAB PO SCH (21:23)
[2024-06-17] MEDS: oxyCODONE/ACETAMINOPHEN 5mg/325mg TAB PO PRN (21:23)
[2024-06-17] MEDS: OXcarbazepine 150 MG TABLET PO SCH (21:26)
[2024-06-17] MEDS: FINASTERIDE 5 MG TAB PO SCH (21:26)
[2024-06-18 05:30] LABS: Calcium 8.2 mg/dl (8.6-10.3); Creatinine Clr Calc Pharmacy 10.9 ml/min; Potassium 4.7 mmol/L (3.5-5.1)
[2024-06-18 05:39] LABS: Hematocrit (blood only) 21.7 % (42.0-52.0); Hemoglobin 6.9 g/dl (14.0-18.0); Mean Corpuscular Hemoglobin 30.5 pg (25.0-34.0); Mean Corpuscular Hgb Conc 31.8 g/dL (32.0-36.0); Mean Platelet Volume 10.6 fL (9.4-12.4); Platelet Count 117 K/uL (130-400); RDW Coefficient of Variation 15.7 % (11.5-14.5); RDW Standard Deviation 54.9 fL (36.4-46.3); Red Blood Count 2.26 M/uL (4.70-6.10); White Blood Count 10.16 K/ul (4.8-10.8)
[2024-06-18 05:44] LABS: Basophils # (auto) 0.03 K/uL (0.00-0.20); Basophils % (auto) 0.3 %; Immature Granulocytes # (auto) 0.06 K/uL (0.01-0.20); Immature Granulocytes % (auto) 0.6 %; Lymphocytes # (auto) 2.99 K/uL (1.20-3.40); Lymphocytes % (auto) 29.4 %; Monocytes # (auto) 0.97 K/uL (0.11-0.59); Monocytes % (auto) 9.5 %; Neutrophils # (auto) 6.11 K/uL (1.40-6.50); Neutrophils % (auto) 60.2 %; RBC Morphology Unremarkable
[2024-06-18] MEDS ORDERED: SODIUM CHLORIDE 0.9% 250 ML IV PRN (05:56)
--- NOTE | 2024-06-18 06:53 | Critical Care Consultation ---
Date of Consultation June 18, 2024 Assessment & Plan (1) AAA (abdominal aortic aneurysm) without rupture: Pt is a 78 yo male with a past med hx of AAA, ESRD on HD TuesSat, CLL, HTN, liver cirrhosis, chronic anemia, BPH, CVA (L thalamus ischemic stroke), L common iliac aneurysm, thoracic ascending aneurysm, and b/l carotid disease s/p endarterectomies who presents to the hospital for AAA repair with Dr. Nicole on 06/17. Reason Critically Ill: S/p AAA repair 06/17 PLAN: Neuro: -no acute needs CV: Hypertension -continue home amlodipine 5mg daily Resp: -no acute needs Renal: ESRD -gets HD TuesSat per pt, last session was Saturday 06/16 -lasix 20 mg MWF GI/Nutrition: -dialysis renal diet Heme: Chronic anemia in the setting of ESRD -Hbg today 6.9 -> 1 unit PRBCs transfusing now Endocrine: -no acute needs -continue rosuvastatin 10 mg daily Vascular access: L AV fistula, peripheral IV Code Status: Full code Disposition: ICU for cardiac monitoring s/p procedure Supervising Physician Co-Signing Physician Notes Dr. Last was resident physician during care of patient. I separately evaluated patient for ying portions of the history and the exam. I was present during the critical portion of medical decision making, and I discussed the case with the resident. I generally agree with the findings and plan. Patient received blood transfusion, doing well critical care will sign off History of Present Illness Reason for Consultation: S/p pevr Requesting Physician: Dr. Nimesh Nicole Attending Physician: Nimesh Nicole MD History of Present Illness Pt is a 78 yo male with a past med hx of AAA, ESRD on HD TuesSat, CLL, HTN, liver cirrhosis, chronic anemia, BPH, CVA (L thalamus ischemic stroke), L common iliac aneurysm, thoracic ascending aneurysm, and b/l carotid disease s/p endarterectomies who presents to the hospital for AAA repair with Dr. Nicole on 06/17. Today, pt states he is feeling okay. His only question is when he can get out of here and when he can travel to [place]. Otherwise he states he is feeling well, no chest pain or SOB, no nausea or vomiting, states he is surprised at how good he feels today. Allergies Allergy/AdvReac Type Severity Reaction Status Date / Time Penicillins Allergy Unknown A CHILD Verified 06/17/24 05:53 COULD NOT TAKE Home Medications Medication Instructions Recorded Confirmed Type lorazepam 1 mg tablet 1 mg PO HS 04/15/19 06/17/24 History oxcarbazepine 300 mg tablet 300 mg PO BID 03/07/23 06/17/24 History (Trileptal) safety needles 25 gauge x 5/8" (BD #6 ea 03/22/23 06/03/24 Rx SafetyGlide Needle) syringe (disposable) 1 mL (BD #6 ea 03/22/23 06/03/24 Rx Syringe) ergocalciferol (vitamin D2) 1,250 50,000 unit PO MONTHLY #12 caps 06/06/23 06/17/24 Rx mcg (50,000 unit) capsule (Vitamin D2) tamsulosin 0.4 mg capsule 0.4 mg PO QAM 02/20/24 06/17/24 History furosemide 20 mg tablet 20 mg PO Q OTHER DAY #30 tabs 05/06/24 06/17/24 Rx amlodipine 5 mg tablet 5 mg PO QAM 06/05/24 06/17/24 History calcitriol 0.25 mcg capsule 0.25 mcg PO UD 06/05/24 06/17/24 History finasteride 5 mg tablet 5 mg PO QPM 06/05/24 06/17/24 History rosuvastatin 10 mg tablet 10 mg PO QAM 06/05/24 06/17/24 History Patient History Medical History History of chronic lymphocytic leukemia patient denies Bipolar disorder BPH (benign prostatic hyperplasia) Bilateral inguinal hernia COPD (chronic obstructive pulmonary disease) Cirrhosis patient denies Closed head injury syncopal epidsode after dialysis, 03/2024 Hyperlipidemia Stroke patient denies, no deficits Lung cancer Anemia due to chronic kidney disease Infarction of left thalamus End stage renal disease on dialysis Follows with Dr Hernandez, dialysis on Saturday/Saturday HTN (hypertension), benign Abdominal aneurysm 5.8 x 4.7cm imaging March 2024 Elevated prostate specific antigen (PSA) SNHL (sensorineural hearing loss) Squamous cell carcinoma History of diverticulitis Pre-diabetes Surgical History S/p bilateral carotid endarterectomy History of appendectomy S/P lobectomy of lung Left [id number] CHEMO/NO [facility]IATION-[facility] Hx of endoscopy UPPER Hx of colonoscopy Hx of oral surgery Family History Mother Heart disease Father Stroke Other Family history non-contributory Denies family history of Ovarian cancer Prostate cancer Myocardial infarction Breast cancer Colorectal cancer Social History Smoking Status: Former smoker Cigarettes Per Day: 20; Smoking End Date: 2009; Second Hand Exposure: No; Do You Dip or Chew Tobacco: No; Tobacco Cessation Education Requested by Patient: No Hx Alcohol Use: No Hx Substance Use: No Preferred Language: Belarusian Communication Ability: Effective Communication Ability Comment: SOME HARD OF HEARING / NO HEARING AIDES Visual Impairment: No Limitations Ct Scan Special Procedures Technologist Required: No Beliefs That Will Affect Care: None marital status: Current Living Situation: Spouse Current Living Situation Comment: Home with spouse current occupational status: employed and retired 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 [employer] How many Children do You have: 2 Other Information That Helps Us Care for You: No Feels Safe at Home: Yes Safety Concerns: Feels Safe At This Time Childhood Exposure to Second-Hand Smoke: No Diet: regular Diet Comment: avoids red meat caffeine: No Dental Care, Regularly: Yes Physical Activity Frequency: Daily Physical Activity Frequency Comment: Walking Seatbelt Use: always Sunscreen Use: Yes Assistive Devices: Glasses Review of Systems Review of Systems: All systems reviewed & are unremarkable except as noted in HPI & below Physical Exam Physical Exam: General: Alert and oriented, no acute distress HEENT: Normocephalic, atraumatic, Resp: Lungs clear to auscultation bilaterally, no increased work of breathing Cardio: Regular rate and rhythm, no murmurs GI: Soft and nontender, nondistended, bowel sounds active Skin: Warm, dry, no rashes on visible skin, bandages in place over femoral surgical sites Results & Data Results & Data Vital Signs (Past 12 Hours) Vital Signs Temp Pulse Pulse Resp BP Pulse Ox O2 Del Method 06/18/24 06:40 36.5 C 68 16 159/55 H 95 06/18/24 06:20 36.8 C 72 16 167/59 H 96 06/18/24 06:00 74 20 96 06/18/24 06:00 149/71 H 06/18/24 06:00 149/71 H 06/18/24 06:00 149/71 H 06/18/24 05:51 71 12 95 06/18/24 05:36 68 14 97 06/18/24 05:27 71 16 95 06/18/24 05:15 71 13 94 06/18/24 04:54 76 19 97 06/18/24 04:48 76 21 99 06/18/24 04:39 71 15 96 06/18/24 04:24 36.8 C 71 14 96 06/18/24 04:15 71 14 96 06/18/24 04:00 73 17 95 06/18/24 04:00 146/68 H 06/18/24 04:00 146/68 H 06/18/24 03:58 72 06/18/24 03:54 77 13 97 06/18/24 03:42 74 14 93 06/18/24 03:15 76 20 95 06/18/24 03:03 76 20 96 06/18/24 03:00 143/69 H 06/18/24 03:00 143/69 H 06/18/24 02:48 76 16 96 06/18/24 02:03 78 24 96 06/18/24 02:00 136/66 06/18/24 02:00 136/66 06/18/24 01:42 80 17 95 06/18/24 01:06 83 21 96 06/18/24 01:00 145/72 H 06/18/24 01:00 145/72 H 06/18/24 00:48 82 13 95 06/18/24 00:33 36.8 C 06/18/24 00:21 83 13 97 06/18/24 00:03 88 15 96 06/18/24 00:00 141/69 H 06/18/24 00:00 83 06/17/24 23:48 83 15 96 06/17/24 23:21 84 14 98 06/17/24 23:15 89 14 96 06/17/24 23:00 150/68 H 06/17/24 23:00 150/68 H 06/17/24 23:00 88 06/17/24 22:57 90 14 94 06/17/24 22:51 90 15 95 06/17/24 22:45 89 14 95 06/17/24 22:39 90 14 94 06/17/24 22:21 92 H 14 95 06/17/24 22:12 91 H 17 95 06/17/24 22:00 142/65 H 06/17/24 21:51 92 H 24 97 06/17/24 21:39 103 H 24 98 06/17/24 21:00 152/74 H 06/17/24 20:54 95 H 24 99 06/17/24 20:48 36.8 C 98 H 26 H 97 Room Air 06/17/24 20:03 96 H 18 98 06/17/24 20:00 151/71 H 06/17/24 19:57 96 H 20 96 06/17/24 19:44 95 H 06/17/24 19:33 100 H 24 99 06/17/24 19:15 92 H 20 99 Room Air 06/17/24 19:00 152/69 H 06/17/24 18:57 88 14 97
[2024-06-18 07:02] VITALS: TEMP 97.9
[2024-06-18] MEDS: amLODIPine BESYLATE 5 MG TAB PO SCH (09:18)
[2024-06-18] MEDS: ROSUVASTATIN CALCIUM 10 MG TAB PO SCH (09:18)
[2024-06-18] MEDS: TAMSULOSIN HCL 0.4 MG CAP PO SCH (09:18)
--- NOTE | 2024-06-18 13:29 | Billing Data ---
Date of Service June 18, 2024 Coding Level of Care Code 08093 SUB INP/OBS CARE
--- NOTE | 2024-06-18 14:49 | Surgery Progress Note ---
Date of Service June 18, 2024 Assessment & Plan (1) AAA (abdominal aortic aneurysm) without rupture: Plan: Patient POD#1 from a pevar. Doing well without any complications. Will D/C today. Admission and Anticipated Discharge Date Admission Date: June 17, 2024 Subjective Patient with no complaints. No leg or abd pain. Physical Exam Constitutional: WD/WN, vitals as above Respiratory: normal respiratory effort; no respiratory distress Cardiovascular: Rate/Rhythm: regular rate and regular rhythm Vessels: femoral pulses present Gastrointestinal (Abdomen): Inspection/Auscultation: abdomen normal to inspection; abdomen not distended Percussion/Palpation: abdomen soft; abdomen nontender Skin: + incision (dressings intact, groins sof t) Neurologic: CN's II-XI intact bilaterally and moves all extremities Results & Data Vital Signs (Past 12 Hours) Vital Signs Temp Pulse Pulse Resp BP Pulse Ox 06/18/24 13:42 75 18 98 06/18/24 13:33 71 17 99 06/18/24 13:21 74 20 99 06/18/24 13:12 72 19 99 06/18/24 12:30 78 19 97 06/18/24 12:24 76 15 96 06/18/24 12:03 80 21 96 06/18/24 12:00 135/64 06/18/24 12:00 135/64 06/18/24 12:00 65 06/18/24 11:48 79 19 96 06/18/24 11:45 77 23 97 06/18/24 11:21 78 27 H 99 06/18/24 11:00 143/68 H 06/18/24 11:00 143/68 H 06/18/24 11:00 143/68 H 06/18/24 11:00 73 23 98 06/18/24 10:42 65 14 97 06/18/24 10:33 69 15 99 06/18/24 10:15 70 16 97 06/18/24 10:00 151/69 H 06/18/24 09:57 66 15 98 06/18/24 09:42 72 20 97 06/18/24 09:30 76 19 06/18/24 09:21 74 21 99 06/18/24 09:16 36.6 C 68 18 177/57 H 98 06/18/24 08:45 76 20 98 06/18/24 08:33 71 22 98 06/18/24 08:27 74 16 98 06/18/24 08:25 71 16 175/71 H 98 06/18/24 08:15 79 21 99 06/18/24 08:00 142/62 H 06/18/24 08:00 142/62 H 06/18/24 08:00 142/62 H 06/18/24 08:00 77 22 95 06/18/24 08:00 71 176/65 H 06/18/24 07:48 72 26 H 96 06/18/24 07:25 36.6 C 71 20 176/65 H 97 06/18/24 07:21 70 15 98 06/18/24 07:18 70 16 97 06/18/24 06:55 36.6 C 73 21 159/54 H 96 06/18/24 06:48 73 06/18/24 06:45 70 20 95 06/18/24 06:40 36.5 C 68 16 159/55 H 95 06/18/24 06:20 36.8 C 72 16 167/59 H 96 06/18/24 06:00 74 20 96 06/18/24 06:00 149/71 H 06/18/24 06:00 149/71 H 06/18/24 06:00 149/71 H 06/18/24 05:51 71 12 95 06/18/24 05:36 68 14 97 06/18/24 05:27 71 16 95 06/18/24 05:15 71 13 94 06/18/24 04:54 76 19 97 06/18/24 04:48 76 21 99 06/18/24 04:39 71 15 96 06/18/24 04:24 36.8 C 71 14 96 06/18/24 04:15 71 14 96 06/18/24 04:00 73 17 95 06/18/24 04:00 146/68 H 06/18/24 04:00 146/68 H 06/18/24 03:58 72 06/18/24 03:54 77 13 97 06/18/24 03:42 74 14 93 06/18/24 03:15 76 20 95 06/18/24 03:03 76 20 96 06/18/24 03:00 143/69 H 06/18/24 03:00 143/69 H 06/18/24 02:48 76 16 96
--- NOTE | 2024-06-18 14:53 | Discharge Summary ---
Date of Service June 18, 2024 Admission HPI Per Admitting Provider Mr. Martinez is an elderly male who presents to vascular surgery clinic for an annual follow-up visit regarding his history of abdominal arctic aneurysm, left common iliac artery aneurysm, thoracic ascending aortic aneurysm, and bilateral carotid disease status post bilateral carotid endarterectomies. Patient states that he feels his overall health has been relatively stable, until recently, he feels he has been retaining significant amounts of fluid in his abdomen and lower extremities over the past month or so. He denies any dyspnea or orthopnea, but his states that he has started sleeping for 4 to 5 hours in the middle of the day and he never did that before. He also admits to poor appetite and diarrhea. He denies any fevers chills nausea vomiting, chest pain, shortness of breath, lower extremity claudication, rest pain, nonhealing wounds or ulcerations. Patient did have a CT scan of the chest, and possibly the abdomen/pelvis done at [address] [place] [address], but these reports and images are not available for review today. His carotid ultrasound performed prior to today's appointment demonstrates widely patent bilateral carotid endarterectomy sites without evidence of restenosis. His aortoiliac ultrasound demonstrates an infrarenal abdominal aortic aneurysm measuring 5.0 cm in its largest diameter, having previously measured 4.1 cm 1 year ago. Additionally his left common iliac artery aneurysm measures 2.4 cm, which is unchanged in comparison to last year. No chest CT imaging was available for our review today, but patient believes his recent chest CT scan showed no changes in his thoracic aneurysm. CT scan shows a 5.8 cm infrarenal aortic aneurysm. It was difficult to see the iliacs and the involvement of the iliac artery with aneurysmal disease due to a noncontrast CT. He does have a good proximal neck for an endograft Repair. Admission Exam Per Admitting Provider Constitutional: In general patient is a chronically ill elderly male in no distress. He is alert and oriented without focal deficits, but is moving slower than previously. His heart is regular, his lungs are clear with decreased breath sounds. His abdomen is protuberant with what appears to be fluid overload. His brachial and radial pulses are +3. His left radiocephalic AV fistula has an excellent thrill and bruit throughout. His lower extremity distal pulses are +2. He has +4 edema of the lower extremities from the knees to the toes. Principal Diagnosis aaa Discharge Exam Constitutional: In general patient is a chronically ill elderly male in no distress. He is alert and oriented without focal deficits, but is moving slower than previously. His heart is regular, his lungs are clear with decreased breath sounds. His abdomen is protuberant with what appears to be fluid overload. His brachial and radial pulses are +3. His left radiocephalic AV fistula has an excellent thrill and bruit throughout. His lower extremity distal pulses are +2. He has +4 edema of the lower extremities from the knees to the toes. Constitutional WD/WN, vitals as above Respiratory normal respiratory effort; no respiratory distress Cardiovascular Rate/Rhythm: regular rate and regular rhythm Vessels: femoral pulses present Gastrointestinal (Abdomen) Inspection/Auscultation: abdomen normal to inspection; abdomen not distended Percussion/Palpation: abdomen soft; abdomen nontender Skin + incision (dressings intact, groins soft) Neurologic CN's II-XI intact bilaterally and moves all extremities Discharge Data Allergies Allergy/AdvReac Type Severity Reaction Status Date / Time Penicillins Allergy Unknown A CHILD Verified 06/17/24 05:53 COULD NOT TAKE Consultations 06/17/24 12:44 Consult Heel Caser Routine Procedures Performed Operation Date: 06/17/24 08:00 Actual Procedures p Percutaneous Endovascular Abdominal Aortic Aneurysm Repair, Right Iliac Extension, Mechanical closure of Bilateral Femoral Arteries(Bilateral) - Nimesh Nicole MD Ordered Studies 06/17/24 06:59 EV Angio Abdomen Aorta Routine US EV guide vascular access Routine Hospital Course (1) AAA (abdominal aortic aneurysm) without rupture: Patient POD#1 from a pevar. Doing well without any complications. Will D/C today. Total Time Total Time Spent Total Time Spent (In Minutes): 0 Discharge Plan Discharge Items Patient Disposition: Home - Self-Care Reason For Visit: Abdominal Aortic Aneurysm Discharge Diagnosis: abdominal aortic aneurysm Activity: Per Instructions section Non-emergency contact: Surgeon Call non-emergency contact if: your temperature is above 101.5, your wound has increased redness, your wound has increased drainage and your wound pain has increased Follow-up/Referrals: Anna Dhaliwal MD [Primary Care Provider] - Diet: Heart Healthy Addtl Attending Provider Instructions: SPECIAL CARE INSTRUCTIONS: Diet: * You may return to previous diet. Medications: * Continue to take your medications as directed. Incision/Puncture Site Care: * You will have an incision or puncture in each of your groins. Liquid glue will be used to seal your incisions/puncture site. This will lift off as the incisions/puncture sites heal. * If Liquid glue is not used, there will be small dressings covering your incisions. After you get home, you may remove the dressings and shower - allowing the warm soapy water to run over it. * Be sure to dry the sites well and keep them dry. * DO NOT SOAK IN A TUB/POOL/etc. UNTIL ALL SURGICAL SITES ARE HEALED. DO NOT REMOVE THE GLUE UNTIL THE INCISIONS HEAL. Restrictions: * Limit yourself to tree cutter activity for the first week. * You may walk and go up and down steps. * Avoid excessive bending or movement at the level of the incisions or punctures. Risks and Possible Complications: * Infection/Drainage/Bleeding - Drainage or bleeding from the incisions/puncture site should be minimal. If you have excessive bleeding or drainage, call our office ([phone]) right away. * Pain/Numbness - You may experience some mild pain or soreness at your incision sites. You may also have some numbness around the incisions or into the insides of your thighs. Bruising is normal and should resolve within 2 weeks. * Changes in Appetite or Bowel Habits - Mostly related to anesthesia and pain medication, some patients have reported decreased appetite and/or problems with constipation. These symptoms usually improve over a few weeks. Remembering to take an [id number] stool softener, as directed, will help you to avoid constipation. Call our office and seek emergent treatment if you develop: * Fever or chills * Have a temperature greater than 101 degrees F * Any redness or purulent drainage from your incisions or punctures * Severe abdominal, chest or back pain SKIN IRRITATION: * You may experience some redness and/or swelling in the area where radiation was administered. If any skin irritation occurs, please contact your family physician. You will be receiving a call from the Vascular Surgery Nurse after you are discharged. FOLLOW UP VISIT: It is important for you to keep your follow up appointments with your medical provider. Keep any scheduled doctor appointments. Call [phone] to schedule a follow up appointment if one not already scheduled. Pending Studies at Discharge: No Stand-Alone Forms: My [employer], Smoking Cessation Medications and DC Order Prescriptions: New oxycodone-acetaminophen [Percocet] 5-325 mg tablet 1 tab PO Q6H PRN (Reason: pain) Qty: 20 0RF Continued (DME) BD SafetyGlide Needle 25 gauge x 5/8" needle See Rx Instructions .Route Qty: 6 3RF Rx Instructions: As directed (DME) BD Syringe 1 mL syringe See Rx Instructions .Route Qty: 6 3RF Rx Instructions: As directed ergocalciferol (vitamin D2) [Vitamin D2] 1,250 mcg (50,000 unit) capsule 50,000 unit PO MONTHLY Qty: 12 0RF Rx Instructions: ON FIRST DAY OF THE MONTH furosemide 20 mg tablet 20 mg PO Q OTHER DAY Qty: 30 2RF Rx Instructions: Every Saturday, Saturday, and Saturday. tamsulosin 0.4 mg capsule 0.4 mg PO QAM lorazepam 1 mg tablet 1 mg PO HS oxcarbazepine [Trileptal] 300 mg tablet 300 mg PO BID amlodipine 5 mg tablet 5 mg PO QAM calcitriol 0.25 mcg capsule 0.25 mcg PO UD Rx Instructions: 0.25 mcg orally every saturday, saturday, and saturday; finasteride 5 mg tablet 5 mg PO QPM rosuvastatin 10 mg tablet 10 mg PO QAM Discharge Orders: Discharge Order (Routine); Ordered 06/18/24 Ordered By: Nimesh Nicole Admission Data Admit Date/Time: 06/17/24 07:45 Attending Provider: Nimesh Nicole Admit Provider: Nimesh Nicole Primary Care Provider: Anna Dhaliwal Other Providers: Rickie Alamo; Dimitrios Aguilar; Geovanny Marti; Vinnie Nuñez; Bushra Loving Muqueet; Eh Dunn; Lety Gupta; Jolly Estrada; Radames Shaffer; Iain Menon; Elena Bethea
[2024-06-18 15:07] VITALS: RESP 27; O2SAT 100
[2024-06-18 15:08] VITALS: BP 139/72; PULSE 72
[2024-07-17] MEDS ORDERED: ERGOCALCIFEROL 1250 MCG (50,000 UNITS) CAP PO SCH (09:00)
== END 2024-06-18 15:32 | disposition home or self-care (01) | DRG 268 ==
LOC: ASU 05:30 → 1E 07:45

== ENCOUNTER 2024-07-02 07:20 | Observation (INO) ==
--- NOTE | 2024-07-02 07:37 | Emergency Department Note ---
Impression & Plan Pleural effusion ADMIT ED Provider Note HPI: History obtained from patient. The patient is a 78-year-old gentleman with history of recent endograft abdominal aortic aneurysm repair on 06/[address] Nicole, presents the emergency department today with a chief complaint of cough and shortness of breath for the past 1 to 2 days. Patient states he is "coughing up junk". Patient states he has felt more short of breath since just overnight. Patient states at times when he coughs he gets a sharp pain in the lower portion of his chest upper abdomen but otherwise patient denies any chest pain, denies any abdominal pain. On arrival here to the ED the patient is tachypneic and hypertensive, he is saturating well on room air. ROS: - Per HPI Differential Diagnosis: Pneumonia, viral upper respiratory infection, pulmonary edema/fluid overload, CHF exacerbation, COPD exacerbation, endograft leak, pulmonary embolism, amongst other potential pathologies. *Outpatient medications and allergy history reviewed. 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 Lab work shows no leukocytosis, hemoglobin is stable at 8.7, platelet count is normal, CMP does not show any evidence of any critical findings aside from the patient's baseline end-stage renal disease. Potassium is within normal limits. Troponin is mildly elevated at 20.5 however this appears to be lower in comparison to the patient's previous levels. Chest x-ray was suggestive of pulmonary edema, patient does tell me that he missed his last session of dialysis this past Saturday because he was here in the ER for some left lower back pain. Given the patient's recent surgery and shortness of breath, I did obtain CT angiography of the chest as well as the abdomen and pelvis, this does not show any evidence of PE, bilateral pleural effusions are noted. There is no large leak noted in the patient's endograft repair however there is note of type II leakage of the inferior mesenteric and lumbar arteries. I did discuss the CT imaging results with the patient's vascular surgeon who did his procedure, Dr. Nicole, he did review the CT imaging and states that these type II leaks do not require any intervention and should resolve on their own within the next year. I discussed all the above findings with the patient, on my reassessment he remains saturating well on room air, his blood pressure is improved following sublingual nitroglycerin. I suspect that his symptoms are secondary to fluid overload secondary to missing dialysis recently. I did discuss the patient's presentation with his nephrology group, Dr. Marcelino, she is in agreement for consultation to arrange for the patient to be dialyzed today. Case was then discussed with the on-call admitting provider for the hospitalist service, Rosangela Bird PA-C, and the patient was placed for admission in stable condition to the service of Dr. Henderson. Consultants/Discussions held with other healthcare providers: -Vascular surgery, Dr. Nicole -Hospitalist service, Dr. Henderson -Nephrology, Dr. Marcelino Disposition discussion held by myself with: -Patient Diagnosis: 1. Pulmonary edema, acute 2. Bilateral pleural effusions, acute 3. Dyspnea, acute 4. End-stage renal disease, on dialysis with recent missed session 5. Anemia, chronic, stable 6. Hypertensive urgency Disposition: Admission Lan Garza DO Emergency Medicine Past Med/Surg History Problem List (Updated 07/02/24 @ 13:54 by Lan Garza DO) Pleural effusion (Acute) Hypertensive urgency Volume overload ESRD (end stage renal disease) Left lumbar radiculopathy Hypervolemia associated with renal insufficiency Sciatica of left side (Acute) AAA (abdominal aortic aneurysm) without rupture Bilateral inguinal hernia Infrarenal abdominal aortic aneurysm (AAA) without rupture Closed head injury Episode of syncope Cirrhosis Elevated troponin CKD (chronic kidney disease), stage V Anemia Pulmonary nodules Abnormal CT of the abdomen Elevated PSA Benign prostatic hyperplasia with elevated prostate specific antigen (PSA) (Chronic) Chronic obstructive pulmonary disease (Chronic) Chronic lymphocytic leukemia (Chronic) Kidney cysts noted on 06/05/18 MRI Hyperlipidemia (Chronic) Medical History History of chronic lymphocytic leukemia patient denies Bipolar disorder BPH (benign prostatic hyperplasia) Bilateral inguinal hernia COPD (chronic obstructive pulmonary disease) Cirrhosis patient denies Closed head injury syncopal epidsode after dialysis, 03/2024 Hyperlipidemia Stroke patient denies, no deficits Lung cancer Anemia due to chronic kidney disease Infarction of left thalamus End stage renal disease on dialysis Follows with Dr Hernandez, dialysis on Saturday/Saturday HTN (hypertension), benign Abdominal aneurysm 5.8 x 4.7cm imaging March 2024 Elevated prostate specific antigen (PSA) SNHL (sensorineural hearing loss) Squamous cell carcinoma History of diverticulitis Pre-diabetes Surgical History S/p bilateral carotid endarterectomy History of appendectomy S/P lobectomy of lung Left [id number] CHEMO/NO RADIATION-[facility] Hx of endoscopy UPPER Hx of colonoscopy Hx of oral surgery Family History Mother Heart disease Father Stroke Other Family history non-contributory Denies family history of Ovarian cancer Prostate cancer Myocardial infarction Breast cancer Colorectal cancer Social History Smoking Status: Former smoker Tobacco Type: Cigarettes Cigarettes Per Day: 20; Second Hand Exposure: No; Do You Dip or Chew Tobacco: No; Hx Alcohol Use: No Hx Substance Use: No Preferred Language: Vincentian Communication Ability: Effective Communication Ability Comment: SOME HARD OF HEARING / NO HEARING AIDES Visual Impairment: No Limitations Business Analytics Specialist Required: No Beliefs That Will Affect Care: None marital status: Current Living Situation: Spouse Current Living Situation Comment: Home with spouse current occupational status: employed and retired 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 [employer] How many Children do You have: 2 Other Information That Helps Us Care for You: No Feels Safe at Home: Yes Safety Concerns: Feels Safe At This Time Childhood Exposure to Second-Hand Smoke: No Diet: regular Diet Comment: avoids red meat caffeine: No Dental Care, Regularly: Yes Physical Activity Frequency: Daily Physical Activity Frequency Comment: Walking Seatbelt Use: always Sunscreen Use: Yes Assistive Devices: None Allergies Allergies Allergy/AdvReac Type Severity Reaction Status Date / Time Penicillins Allergy Unknown A CHILD Verified 06/17/24 05:53 COULD NOT TAKE Home Meds Home Medications Medication Instructions Recorded Confirmed lorazepam 1 mg tablet 1 mg PO HS 04/15/19 07/02/24 oxcarbazepine 300 mg tablet 300 mg PO BID 03/07/23 07/02/24 (Trileptal) tamsulosin 0.4 mg capsule 0.4 mg PO QAM 02/20/24 07/02/24 amlodipine 5 mg tablet 5 mg PO QAM 06/05/24 07/02/24 calcitriol 0.25 mcg capsule 0.25 mcg PO UD 06/05/24 07/02/24 finasteride 5 mg tablet 5 mg PO QPM 06/05/24 07/02/24 rosuvastatin 10 mg tablet 10 mg PO QAM 06/05/24 07/02/24 doxazosin 4 mg tablet 4 mg PO BID 07/02/24 07/02/24 sevelamer carbonate 800 mg tablet 800 mg PO TID 07/02/24 07/02/24 Previous Rx's Medication Instructions Recorded safety needles 25 gauge x 5/8" (BD #6 ea 03/22/23 SafetyGlide Needle) syringe (disposable) 1 mL (BD #6 ea 03/22/23 Syringe) ergocalciferol (vitamin D2) 1,250 50,000 unit PO MONTHLY #12 caps 06/06/23 mcg (50,000 unit) capsule (Vitamin D2) furosemide 20 mg tablet 20 mg PO Q OTHER DAY #30 tabs 05/06/24 oxycodone-acetaminophen 5 mg-325 1 tab PO Q6H PRN pain #20 tabs 06/18/24 mg tablet (Percocet) Results & Data (ED) Vital Signs Vital Signs - 24 hr 07/02/24 07:25 07/02/24 07:31 07/02/24 07:39 Temperature 36.4 C L Temperature Source Temporal Artery Scan Pulse Rate 82 79 Pulse Rate from SpO2 Sensor 79 Pulse Rhythm Regular Respiratory Rate 20 28 H Respiratory Effort / Characteristics Non-Labored Spontaneous Respiratory Depth Normal Respiratory Pattern Blood Pressure 213/96 H 203/109 H Blood Pressure Mean 135 128 Pulse Oximetry 98 98 Oxygen Delivery Method Room Air Oxygen Flow Rate Sepsis Recent Fever Within 48 Hours No Sepsis New/Unexplained Change in Mental Status No Sepsis Action Taken by Nursing No Action Required 07/02/24 07:45 07/02/24 07:50 07/02/24 07:55 Temperature Temperature Source Pulse Rate 74 73 Pulse Rate from SpO2 Sensor 75 Pulse Rhythm Regular Respiratory Rate 29 H Respiratory Effort / Characteristics Respiratory Depth Respiratory Pattern Blood Pressure 188/92 H Blood Pressure Mean 114 Pulse Oximetry 97 97 Oxygen Delivery Method Room Air Oxygen Flow Rate Sepsis Recent Fever Within 48 Hours Sepsis New/Unexplained Change in Mental Status Sepsis Action Taken by Nursing 07/02/24 08:00 07/02/24 08:00 07/02/24 08:00 Temperature Temperature Source Pulse Rate 72 Pulse Rate from SpO2 Sensor 72 Pulse Rhythm Respiratory Rate 24 Respiratory Effort / Characteristics Respiratory Depth Respiratory Pattern Blood Pressure 183/90 H 183/90 H Blood Pressure Mean 128 128 Pulse Oximetry 100 Oxygen Delivery Method Oxygen Flow Rate Sepsis Recent Fever Within 48 Hours Sepsis New/Unexplained Change in Mental Status Sepsis Action Taken by Nursing 07/02/24 08:09 07/02/24 08:09 07/02/24 08:10 Temperature Temperature Source Pulse Rate 71 Pulse Rate from SpO2 Sensor 71 Pulse Rhythm Respiratory Rate 24 Respiratory Effort / Characteristics Labored Respiratory Depth Normal Respiratory Pattern Regular Blood Pressure 181/80 H Blood Pressure Mean 131 Pulse Oximetry 100 Oxygen Delivery Method Room Air Oxygen Flow Rate 97 Sepsis Recent Fever Within 48 Hours Sepsis New/Unexplained Change in Mental Status Sepsis Action Taken by Nursing 07/02/24 08:10 07/02/24 08:15 07/02/24 08:36 Temperature Temperature Source Pulse Rate 76 Pulse Rate from SpO2 Sensor 76 Pulse Rhythm Respiratory Rate 31 H Respiratory Effort / Characteristics Respiratory Depth Respiratory Pattern Blood Pressure 169/81 H Blood Pressure Mean 132 Pulse Oximetry 97 97 Oxygen Delivery Method Room Air Oxygen Flow Rate Sepsis Recent Fever Within 48 Hours Sepsis New/Unexplained Change in Mental Status Sepsis Action Taken by Nursing 07/02/24 08:41 07/02/24 08:45 07/02/24 09:18 Temperature Temperature Source Pulse Rate 76 74 Pulse Rate from SpO2 Sensor 74 Pulse Rhythm Respiratory Rate 32 H Respiratory Effort / Characteristics Respiratory Depth Respiratory Pattern Blood Pressure 179/89 H Blood Pressure Mean 120 Pulse Oximetry 97 Oxygen Delivery Method Oxygen Flow Rate Sepsis Recent Fever Within 48 Hours Sepsis New/Unexplained Change in Mental Status Sepsis Action Taken by Nursing 07/02/24 09:18 Temperature Temperature Source Pulse Rate Pulse Rate from SpO2 Sensor Pulse Rhythm Respiratory Rate Respiratory Effort / Characteristics Respiratory Depth Respiratory Pattern Blood Pressure 179/89 H Blood Pressure Mean 120 Pulse Oximetry Oxygen Delivery Method Oxygen Flow Rate Sepsis Recent Fever Within 48 Hours Sepsis New/Unexplained Change in Mental Status Sepsis Action Taken by Nursing Laboratory Data 07/02/24 07:35 07/02/24 07:35 Lab Results 07/02/24 07/02/24 07/02/24 Range/Units 07:35 07:55 09:20 WBC 10.28 (4.8-10.8) K/ul RBC 2.85 L (4.70-6.10) M/uL Hgb 8.7 L (14.0-18.0) g/dl Hct 26.5 L (42.0-52.0) % MCV 93.0 (80.0-100.0) fL MCH 30.5 (25.0-34.0) pg MCHC 32.8 (32.0-36.0) g/dL RDW Std Deviation 52.4 H (36.4-46.3) fL RDW Coeff of Stephen 15.5 H (11.5-14.5) % Plt Count 161 (130-400) K/uL MPV 9.1 L (9.4-12.4) fL Immature Gran % (Auto) 0.2 % Neut % (Auto) 59.5 % Lymph % (Auto) 32.8 % [place] % (Auto) 6.8 % Eos % (Auto) 0.0 % Baso % (Auto) 0.7 % Neut # (Auto) 6.12 (1.40-6.50) K/uL Lymph # (Auto) 3.37 (1.20-3.40) K/uL [place] # (Auto) 0.70 H (0.11-0.59) K/uL Eos # (Auto) 0.00 (0.00-0.50) K/uL Baso # (Auto) 0.07 (0.00-0.20) K/uL Immature Gran # (Auto) 0.02 (0.01-0.20) K/uL PT 11.2 (9.0-12.0) Seconds INR 1.0 (0.9-1.1) VBG pH 7.35 L (7.36-7.41) VBG pCO2 38 (38-50) mmHg VBG pO2 52 mmHg VBG HCO3 21 mmol/L VBG O2 Saturation 84.6 % VBG Base Excess -4.2 mEq/L Sodium 135 L (136-145) mmol/L Potassium 4.7 (3.5-5.1) mmol/L Chloride 101 (98-107) mmol/L Carbon Dioxide 22 (21-32) mmol/L Anion Gap 12 H (3-11) BUN 44 H (6-23) mg/dl Creatinine 6.56 H* (0.6-1.4) mg/dl Est Cr Clr Drug Dosing 8.8 ml/min eGFR 8.06 BUN/Creatinine Ratio 6.7 L (10-20) Glucose 98 (70-99(Fasting)) mg/dl Calcium 8.5 L (8.6-10.3) mg/dl Total Bilirubin 0.5 (0.2-1.0) mg/dl AST 19 (13-39) U/L ALT 9 (7-52) U/L Alkaline Phosphatase 212 H (34-104) U/L Troponin I High Sens 20.5 H (0-20) pg/ml B-Natriuretic Peptide 3218 H (0-100) pg/ml Total Protein 6.2 (6.0-8.3) gm/dl Albumin 3.6 (3.4-5.0) gm/dl Globulin 2.6 (2.5-4.0) gm/dl Albumin/Globulin Ratio 1.4 (0.9-2) Urine Color Yellow Urine Appearance Clear (Clear) Urine pH 8.0 H (4.5-7.5) Ur Specific Kimball 1.022 (1.000-1.030) Urine Protein 3+ H (Negative) Urine Glucose (UA) Trace H (Negative) Urine Ketones Negative (Negative) Urine Blood Trace H (Negative) Urine Nitrite Negative (Negative) Urine Bilirubin Negative (Negative) Urine Urobilinogen Negative (Negative) Ur Leukocyte Esterase Negative (Negative) Urine WBC (Auto) 0-5 (0-5) /hpf Urine RBC (Auto) 0-2 (0-2) /hpf U Hyaline Cast (Auto) 0-2 (0-2) /lpf U Epithel Cells (Auto) 0-2 (0-2) /hpf Urine Bacteria (Auto) None Seen (None Seen) Adenovirus (PCR) Not Detected (NotDetected) B. pertussis DNA (PCR) Not Detected (NotDetected) B.parapertussis DNA PCR Not Detected (NotDetected) C. pneumoniae DNA (PCR) Not Detected (NotDetected) Coronavirus OC43 (PCR) Not Detected (NotDetected) Coronavirus HKU1 (PCR) Not Detected (NotDetected) Coronavirus 229E (PCR) Not Detected (NotDetected) SARS-CoV-2 (PCR) Not Detected (NotDetected) Coronavirus NL63 (PCR) Not Detected (NotDetected) Human Metapneumovir PCR Not Detected (NotDetected) Influenza Type A (PCR) Not Detected (NotDetected) Influenza Type B (PCR) Not Detected (NotDetected) M. pneumoniae (PCR) Not Detected (NotDetected) Parainfluenza 1 (PCR) Not Detected (NotDetected) Parainfluenza 2 (PCR) Not Detected (NotDetected) Parainfluenza 3 (PCR) Not Detected (NotDetected) Parainfluenza 4 (PCR) Not Detected (NotDetected) RSV (PCR) Not Detected (NotDetected) Entero/Rhino (PCR) Not Detected (NotDetected) 07/02/24 Range/Units 10:20 WBC (4.8-10.8) K/ul RBC (4.70-6.10) M/uL Hgb (14.0-18.0) g/dl Hct (42.0-52.0) % MCV (80.0-100.0) fL MCH (25.0-34.0) pg MCHC (32.0-36.0) g/dL RDW Std Deviation (36.4-46.3) fL RDW Coeff of Stephen (11.5-14.5) % Plt Count (130-400) K/uL MPV (9.4-12.4) fL Immature Gran % (Auto) % Neut % (Auto) % Lymph % (Auto) % [place] % (Auto) % Eos % (Auto) % Baso % (Auto) % Neut # (Auto) (1.40-6.50) K/uL Lymph # (Auto) (1.20-3.40) K/uL [place] # (Auto) (0.11-0.59) K/uL Eos # (Auto) (0.00-0.50) K/uL Baso # (Auto) (0.00-0.20) K/uL Immature Gran # (Auto) (0.01-0.20) K/uL PT (9.0-12.0) Seconds INR (0.9-1.1) VBG pH (7.36-7.41) VBG pCO2 (38-50) mmHg VBG pO2 mmHg VBG HCO3 mmol/L VBG O2 Saturation % VBG Base Excess mEq/L Sodium (136-145) mmol/L Potassium (3.5-5.1) mmol/L Chloride (98-107) mmol/L Carbon Dioxide (21-32) mmol/L Anion Gap (3-11) BUN (6-23) mg/dl Creatinine (0.6-1.4) mg/dl Est Cr Clr Drug Dosing ml/min eGFR BUN/Creatinine Ratio (10-20) Glucose (70-99(Fasting)) mg/dl Calcium (8.6-10.3) mg/dl Total Bilirubin (0.2-1.0) mg/dl AST (13-39) U/L ALT (7-52) U/L Alkaline Phosphatase (34-104) U/L Troponin I High Sens 19.7 (0-20) pg/ml B-Natriuretic Peptide (0-100) pg/ml Total Protein (6.0-8.3) gm/dl Albumin (3.4-5.0) gm/dl Globulin (2.5-4.0) gm/dl Albumin/Globulin Ratio (0.9-2) Urine Color Urine Appearance (Clear) Urine pH (4.5-7.5) Ur Specific Kimball (1.000-1.030) Urine Protein (Negative) Urine Glucose (UA) (Negative) Urine Ketones (Negative) Urine Blood (Negative) Urine Nitrite (Negative) Urine Bilirubin (Negative) Urine Urobilinogen (Negative) Ur Leukocyte Esterase (Negative) Urine WBC (Auto) (0-5) /hpf Urine RBC (Auto) (0-2) /hpf U Hyaline Cast (Auto) (0-2) /lpf U Epithel Cells (Auto) (0-2) /hpf Urine Bacteria (Auto) (None Seen) Adenovirus (PCR) (NotDetected) B. pertussis DNA (PCR) (NotDetected) B.parapertussis DNA PCR (NotDetected) C. pneumoniae DNA (PCR) (NotDetected) Coronavirus OC43 (PCR) (NotDetected) Coronavirus HKU1 (PCR) (NotDetected) Coronavirus 229E (PCR) (NotDetected) SARS-CoV-2 (PCR) (NotDetected) Coronavirus NL63 (PCR) (NotDetected) Human Metapneumovir PCR (NotDetected) Influenza Type A (PCR) (NotDetected) Influenza Type B (PCR) (NotDetected) M. pneumoniae (PCR) (NotDetected) Parainfluenza 1 (PCR) (NotDetected) Parainfluenza 2 (PCR) (NotDetected) Parainfluenza 3 (PCR) (NotDetected) Parainfluenza 4 (PCR) (NotDetected) RSV (PCR) (NotDetected) Entero/Rhino (PCR) (NotDetected) Administered Medications Sevelamer Carbonate (Sevelamer Carbonate 800 Mg Tab) 800 mg PO TIDM FLORENTINO Stop: 08/01/24 11:59 Last Admin: 07/02/24 13:09 Dose: 800 mg Documented By: CEF Discontinued Medications Acetaminophen (Acetaminophen 500 Mg Tab) 1,000 mg PO NOW STA Stop: 07/02/24 10:32 Last Admin: 07/02/24 13:49 Dose: Not Given Documented By: CEF Albuterol (Albut/Ipratrop 3mg/0.5mg Neb 3 Ml Vial) 3 ml NEB NOW STA; Protocol Stop: 07/02/24 07:35 Last Admin: 07/02/24 08:00 Dose: 3 ml Documented By: E Epoetin Humberto (Epoetin Humberto 20,000 Units/Ml Vial) 20,000 units IV NOW STA Stop: 07/02/24 09:39 Last Admin: 07/02/24 12:58 Dose: Not Given Documented By: CC Ioversol (Optiray 320 125ml) 112 ml IV ONCE ONE Stop: 07/02/24 08:23 Last Admin: 07/02/24 08:22 Dose: 112 ml Documented By: JOÃO Nitroglycerin (Nitroglycerin Sl 0.4 Mg/Tab Tab) 0.4 mg SL NOW STA Stop: 07/02/24 07:56 Last Admin: 07/02/24 08:09 Dose: 0.4 mg Documented By: ROBSON Oxcarbazepine (Oxcarbazepine 150 Mg Tablet) 300 mg PO ONE STA Stop: 07/02/24 10:59 Last Admin: 07/02/24 11:43 Dose: 300 mg Documented By: CEF Oxycodone HCl (Oxycodone Hcl Ir 5 Mg Tab (Immediate Release)) 5 mg PO NOW STA Stop: 07/02/24 10:51 Last Admin: 07/02/24 11:42 Dose: 5 mg Documented By: CEF Tamsulosin HCl (Tamsulosin Hcl 0.4 Mg Cap) 0.4 mg PO NOW STA Stop: 07/02/24 10:59 Last Admin: 07/02/24 11:43 Dose: 0.4 mg Documented By: CEF Imaging Data Radiologist's Impression: Chest X-Ray 07/02/24 07:29 XR chest 1V portable CLINICAL HISTORY: Dyspnea. COMPARISON STUDY: Chest radiograph August 04, 2018. Chest CT April 07, 2024. FINDINGS: There is no pneumothorax. There are [id number] bilateral pleural effusions with associated bibasilar opacities. Cardiomegaly is noted with interstitial thickening. IMPRESSION: 1. Cardiomegaly with interstitial pulmonary edema. 2. Small to moderate bilateral pleural effusions and associated bibasilar opacities which favor atelectasis. Radiographic follow-up to ensure resolution is recommended. ACT 112: Negative or not required by law. Electronically signed by: David Zaragoza M.D. 07/02/2024 7:51 AM Abdomen/Pelvis CTA 07/02/24 07:55 CT angio abdomen pelvis w con CLINICAL HISTORY: 78 years-old Male with SOB, recent AAA repair acute shortness of breath with generalized abdominal pain COMPARISON STUDY: CT chest of same day, CTA abdomen and pelvis 06/03/2024 TECHNIQUE: Following the IV administration of 112 cc of Optiray, CT angiogram of the abdomen and pelvis was performed from the lung bases the proximal femora. Images are reviewed in the axial, sagittal, and coronal planes. 3-D MIPS images are created and assessed. All measurements were obtained according to NASCET criteria. IV contrast was administered without complication. A dose lowering technique was utilized adhering to the principles of ALARA. FINDINGS: CTA: Heart is mildly enlarged. No pericardial effusion. Moderate coronary artery calcifications. Moderate atherosclerosis of the descending thoracic aorta. Infrarenal abdominal aortic aneurysm redemonstrated previously measured at 6.1 x 4.8 cm. Today's study this measures 6.4 x 5.0 cm. Patent aortobiiliac stent graft. There are large type II endoleak cysts associated with the inferior mesenteric and lumbar arteries. The posterior endoleak measures up to approximately 3.5 cm. Calcified plaque within the proximal left superficial femoral artery results in high-grade stenosis. This is partially imaged. There is patency of the celiac trunk, superior mesenteric and renal arteries. Stranding within the retroperitoneal tissues without acute hemorrhage identified. CT ABDOMEN/PELVIS: Moderate with [id number] left pleural effusions. 6 mm solid nodule in the right middle lobe on image 25 series 7 is unchanged. Mild intralobular septal thickening suggestive of interstitial pulmonary edema. Dependent subsegmental bibasilar atelectasis. No free air. The spleen is enlarged measuring 15.3 cm. Indeterminate 1.4 cm hypodense focus of the posterior inferior spleen, likely benign. Unremarkable adrenal glands. Cholelithiasis. The liver is within normal limits. Patency of the portal vein. Cortical thinning of the kidneys. Innumerable bilateral renal cysts. Numerous intermediate density lesions of the kidneys are incompletely characterized on this exam. This includes a 1.2 cm lesion of the left kidney on image 194, a 2.2 cm lesion of the right kidney on image 179 and a 10 mm lesion of the right kidney on image 195. No hydronephrosis. Prostatomegaly. Urinary bladder wall thickening with partial distention. Bilateral fat filled inguinal hernias. The left inguinal hernia contains a loop of nonobstructed bowel. Colonic diverticulosis without acute diverticulitis. Mild wall thickening throughout the mid sigmoid appears chronic. Moderate colonic fecal retention. The appendix appears surgically absent. Degenerative changes of the spine, pelvis and hips. IMPRESSION: 1. Infrarenal abdominal aortic aneurysm redemonstrated status post placement of an aortobiiliac stent graft which is patent. 2. There are two large type II endoleak's associated with inferior mesenteric and lumbar arteries. 3. Cardiomegaly with interstitial pulmonary edema, layering pleural effusions with bibasilar atelectasis. 4. Cholelithiasis. 5. Renal cysts with indeterminate bilateral renal lesions redemonstrated. 6. Colonic diverticulosis without definite CT evidence of acute diverticulitis. 7. Bowel containing left inguinal hernia without obstruction. ACT 112: Negative or not required by law. The above report was generated using voice recognition software. It may contain grammatical, syntax or spelling errors. Electronically signed by: Delfino Dolan M.D. 07/02/2024 9:01 AM Chest CTA 07/02/24 07:55 CT ANGIOGRAPHY OF THE CHEST, PULMONARY EMBOLUS PROTOCOL CLINICAL HISTORY: Shortness of breath. Evaluate for pulmonary embolus. COMPARISON STUDY: Chest CT April 07, 2024 and chest radiograph performed earlier today. TECHNIQUE: Following IV administration of 112 mL of Optiray, helical axial images of the chest were obtained utilizing the pulmonary embolus protocol. Maximal intensity projections and sagittal and coronal reformats were viewed on an independent 3D workstation. IV contrast was administered without complication. Automated exposure control was utilized for the study. A dose lowering technique was utilized adhering to the principles of ALARA. CT DOSE: 1600.74 mGy.cm FINDINGS: No pulmonary emboli are identified. The heart is mildly enlarged. There is no pericardial effusion. No pneumothorax. No enlarged axillary, mediastinal or hilar lymph nodes are present. A moderate size right pleural effusion is present. There is a small partially loculated left pleural effusion. Interlobular septal thickening is present. Subpleural groundglass opacities favor atelectasis. There is no consolidation to suggest pneumonia. No suspicious pulmonary nodules are present. A 7 mm subpleural nodule within the anterior segment of the right upper lobe on image 125 is unchanged from chest CT of March 15, 2020. This is benign given stability. The abdomen and pelvis CT will be reported separately. IMPRESSION: 1. No pulmonary emboli identified. 2. Cardiomegaly with interstitial pulmonary edema and moderate right and small left pleural effusions. The left pleural effusion is partially loculated. 3. 7 mm right upper lobe nodule which is unchanged from earlier exams. This is benign given stability. ACT 112: Negative or not required by law. Electronically signed by: David Zaragoza M.D. 07/02/2024 8:54 AM Discharge Plan Visit Data Chief Complaint: Shortness of Breath/Dyspnea Stated Complaint: SOB ED Provider: Lan Garza Discharge Problem: Pleural effusion Discharge Instructions Interventions: ED Discharge Assessment Last Done: 07/02/24 11:52
--- NOTE | 2024-07-02 07:52 | XRay Report ---
XR chest 1V portable CLINICAL HISTORY: Dyspnea. COMPARISON STUDY: Chest radiograph August 04, 2018. Chest CT April 07, 2024. FINDINGS: There is no pneumothorax. There are [id number] bilateral pleural effusions with asso ciated bibasilar opacities. Cardiomegaly is noted with interstitial thickening. IMPRESSION: 1. Cardiomegaly with interstitial pulmonary edema. 2. Small to moderate bilateral pleural effusions and associated bibasilar opacities which favor atele ctasis. Radiographic follow-up to ensure resolution is recommended. ACT 112: Negative or not required by law. Electronically signed by: David Zaragoza M.D. 07/02/2024 7:51 AM
[2024-07-02] MEDS: ALBUT/IPRATROP 3MG/0.5MG NEB 3 ML VIAL NEB STA ×2 (08:00→21:59)
[2024-07-02] MEDS: NITROGLYCERIN SL 0.4 MG/TAB TAB SL STA (08:09)
[2024-07-02 08:10] LABS: Base Excess VBG -4.2 mEq/L; HCO3 VBG 21 mmol/L; Oxygen Saturation VBG 84.6 %; PCO2 VBG 38 mmHg (38-50); PO2 VBG 52 mmHg; pH VBG 7.35 (7.36-7.41)
[2024-07-02 08:22] LABS: Basophils # (auto) 0.07 K/uL (0.00-0.20); Basophils % (auto) 0.7 %; Hematocrit (blood only) 26.5 % (42.0-52.0); Hemoglobin 8.7 g/dl (14.0-18.0); Immature Granulocytes # (auto) 0.02 K/uL (0.01-0.20); Immature Granulocytes % (auto) 0.2 %; Lymphocytes # (auto) 3.37 K/uL (1.20-3.40); Lymphocytes % (auto) 32.8 %; Mean Corpuscular Hemoglobin 30.5 pg (25.0-34.0); Mean Corpuscular Hgb Conc 32.8 g/dL (32.0-36.0); Mean Platelet Volume 9.1 fL (9.4-12.4); Monocytes % (auto) 6.8 %; Neutrophils # (auto) 6.12 K/uL (1.40-6.50); Neutrophils % (auto) 59.5 %; Platelet Count 161 K/uL (130-400); RDW Coefficient of Variation 15.5 % (11.5-14.5); RDW Standard Deviation 52.4 fL (36.4-46.3); Red Blood Count 2.85 M/uL (4.70-6.10); White Blood Count 10.28 K/ul (4.8-10.8)
[2024-07-02] MEDS: OPTIRAY 320 125ml IV ONE (08:22)
[2024-07-02 08:34] LABS: Albumin Globulin Ratio 1.4 (0.9-2); Albumin Level 3.6 gm/dl (3.4-5.0); BUN Creatinine Ratio 6.7 (10-20); Bilirubin,Total 0.5 mg/dl (0.2-1.0); Calcium 8.5 mg/dl (8.6-10.3); Creatinine Clr Calc Pharmacy 8.8 ml/min; Globulin 2.6 gm/dl (2.5-4.0); Potassium 4.7 mmol/L (3.5-5.1); Total Protein 6.2 gm/dl (6.0-8.3)
[2024-07-02 08:39] LABS: Troponin I High Sensitivity 20.5 pg/ml (0-20)
[2024-07-02 08:42] LABS: Prothrombin Time 11.2 Seconds (9.0-12.0)
--- NOTE | 2024-07-02 08:49 | Electrocardiogram Report ---
Test Reason : Blood Pressure : */* mmHG Vent. Rate : 78 BPM Atrial Rate : 78 BPM P-R Int : 192 ms QRS Dur : 104 ms QT Int : 392 ms P-R-T Axes : 55 26 65 degrees QTcB Int : 446 ms Normal sinus rhythm Minimal voltage criteria for LVH, may be normal variant ( [place] product ) Nonspecific ST abnormality Lateral leads Abnormal ECG When compared with ECG of 30-Jun-2024 04:06, No significant change Confirmed by Hector Rizvi ([id number]) on 07/02/2024 8:49:20 AM Referred By: REFERRED SELF Confirmed By: Hector Rizvi
--- NOTE | 2024-07-02 08:56 | CT Scan Report ---
CT ANGIOGRAPHY OF THE CHEST, PULMONARY EMBOLUS PROTOCOL CLINICAL HISTORY: Shortness of breath. Evaluate for pulmonary embolus. COMPARISON STUDY: Chest CT April 07, 2024 and chest radiograph performed earlier today. TECHNIQUE: Following IV administration of 112 mL of Optiray, helical axial images of the chest were o btained utilizing the pulmonary embolus protocol. Maximal intensity projections and sagittal and cor onal reformats were viewed on an independent 3D workstation. IV contrast was administered without co mplication. Automated exposure control was utilized for the study. A dose lowering technique was ut ilized adhering to the principles of ALARA. CT DOSE: 1600.74 mGy.cm FINDINGS: No pulmonary emboli are identified. The heart is mildly enlarged. There is no pericardial effusion. No pneumothorax. No enlarged axillary, mediastinal or hilar lymph nodes are present. A mode rate size right pleural effusion is present. There is a small partially loculated left pleural effusi on. Interlobular septal thickening is present. Subpleural groundglass opacities favor atelectasis. Th ere is no consolidation to suggest pneumonia. No suspicious pulmonary nodules are present. A 7 mm sub pleural nodule within the anterior segment of the right upper lobe on image 125 is unchanged from [facility] CT of March 15, 2020. This is benign given stability. The abdomen and pelvis CT will be reported se parately. IMPRESSION: 1. No pulmonary emboli identified. 2. Cardiomegaly with interstitial pulmonary edema and moderate right and small left pleural effusions . The left pleural effusion is partially loculated. 3. 7 mm right upper lobe nodule which is unchanged from earlier exams. This is benign given stability . ACT 112: Negative or not required by law. Electronically signed by: David Zaragoza M.D. 07/02/2024 8:54 AM
[2024-07-02 09:02] LABS: Adenovirus PCR Not Detected (NotDetected); Bordetella parapertussis PCR Not Detected (NotDetected); Bordetella pertussis PCR Not Detected (NotDetected); Chlamydia pneumoniae PCR Not Detected (NotDetected); Coronavirus 229E PCR Not Detected (NotDetected); Coronavirus CoV-2 (COVID19)PCR Not Detected (NotDetected); Coronavirus HKU1 PCR Not Detected (NotDetected); Coronavirus NL63 PCR Not Detected (NotDetected); Coronavirus OC43PCR Not Detected (NotDetected); Human Metapneumovirus PCR Not Detected (NotDetected); Influenza A PCR Not Detected (NotDetected); Influenza B PCR Not Detected (NotDetected); Mycoplasma pneumoniae PCR Not Detected (NotDetected); Parainfluenza Virus 1 PCR Not Detected (NotDetected); Parainfluenza Virus 2 PCR Not Detected (NotDetected); Parainfluenza Virus 3 PCR Not Detected (NotDetected); Parainfluenza Virus 4 PCR Not Detected (NotDetected); Respiratory Syncytial VirusPCR Not Detected (NotDetected); Rhinovirus/Enterovirus PCR Not Detected (NotDetected)
--- NOTE | 2024-07-02 09:03 | CT Scan Report ---
CT angio abdomen pelvis w con CLINICAL HISTORY: 78 years-old Male with SOB, recent AAA repair acute shortness of breath with gen eralized abdominal pain COMPARISON STUDY: CT chest of same day, CTA abdomen and pelvis 06/03/2024 TECHNIQUE: Following the IV administration of 112 cc of Optiray, CT angiogram of the abdomen and pelv is was performed from the lung bases the proximal femora. Images are reviewed in the axial, sagittal, and coronal planes. 3-D MIPS images are created and assessed. All measurements were obtained accordi ng to NASCET criteria. IV contrast was administered without complication. A dose lowering technique was utilized adhering to the principles of ALARA. FINDINGS: CTA: Heart is mildly enlarged. No pericardial effusion. Moderate coronary artery calcifications. Mode rate atherosclerosis of the descending thoracic aorta. Infrarenal abdominal aortic aneurysm redemonst rated previously measured at 6.1 x 4.8 cm. Today's study this measures 6.4 x 5.0 cm. Patent aortobiil iac stent graft. There are large type II endoleak cysts associated with the inferior mesenteric and l umbar arteries. The posterior endoleak measures up to approximately 3.5 cm. Calcified plaque within the proximal left superficial femoral artery results in high-grade stenosis. This is partially imaged. There is patency of the celiac trunk, superior mesenteric and renal arterie s. Stranding within the retroperitoneal tissues without acute hemorrhage identified. CT ABDOMEN/PELVIS: Moderate with [id number] left pleural effusions. 6 mm solid nodule in the r ight middle lobe on image 25 series 7 is unchanged. Mild intralobular septal thickening suggestive of interstitial pulmonary edema. Dependent subsegmental bibasilar atelectasis. No free air. The spleen is enlarged measuring 15.3 cm. Indeterminate 1.4 cm hypodense focus of the posterior inferior spleen, likely benign. Unremarkable adrenal glands. Cholelithiasis. The liver is within normal limits. Paten cy of the portal vein. Cortical thinning of the kidneys. Innumerable bilateral renal cysts. Numerous intermediate density le sions of the kidneys are incompletely characterized on this exam. This includes a 1.2 cm lesion of th e left kidney on image 194, a 2.2 cm lesion of the right kidney on image 179 and a 10 mm lesion of th e right kidney on image 195. No hydronephrosis. Prostatomegaly. Urinary bladder wall thickening with partial distention. Bilateral fat filled inguinal hernias. The left inguinal hernia contains a loop of nonobstructed dirk l. Colonic diverticulosis without acute diverticulitis. Mild wall thickening throughout the mid sigmo id appears chronic. Moderate colonic fecal retention. The appendix appears surgically absent. Degener ative changes of the spine, pelvis and hips. IMPRESSION: 1. Infrarenal abdominal aortic aneurysm redemonstrated status post placement of an aortobiiliac stent graft which is patent. 2. There are two large type II endoleak's associated with inferior mesenteric and lumbar arteries. 3. Cardiomegaly with interstitial pulmonary edema, layering pleural effusions with bibasilar atelecta sis. 4. Cholelithiasis. 5. Renal cysts with indeterminate bilateral renal lesions redemonstrated. 6. Colonic diverticulosis without definite CT evidence of acute diverticulitis. 7. Bowel containing left inguinal hernia without obstruction. ACT 112: Negative or not required by law. The above report was generated using voice recognition software. It may contain grammatical, syntax o r spelling errors. Electronically signed by: Delfino Dolan M.D. 07/02/2024 9:01 AM
[2024-07-02 09:43] LABS: Appearance Urine Clear (Clear); Bacteria Urine Automated None Seen (None Seen); Bilirubin Urine Negative (Negative); Blood Urine Trace (Negative); Cast Urine Automated 0-2 /lpf (0-2); Color Urine Yellow; Epithelial Cell Urine Auto 0-2 /hpf (0-2); Glucose Urine UA Trace (Negative); Ketones Urine Negative (Negative); Leukocyte Esterase Urine Negative (Negative); Nitrite Urine Negative (Negative); Protein Urine 3+ (Negative); RBC Urine Automated 0-2 /hpf (0-2); Specific Gravity Urine 1.022 (1.000-1.030); Urobilinogen Urine Negative (Negative); WBC Urine Automated 0-5 /hpf (0-5)
--- NOTE | 2024-07-02 10:33 | History & Physical Report ---
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 (4) Hypertensive urgency: Plan: Secondary to missed morning medications and dialysis Give morning medications now, management per dialysis as above (5) End stage renal disease on dialysis: Plan BPH - continue tamsulosin + finasteride Bipolar - continue oxcarbazepine VTE Prophylaxis - encourage ambulation Diet - dialysis renal Disposition - admit to med/tele Admission and Anticipated Discharge Date Admission Date: July 02, 2024 History of Present Illness Chief Complaint: Shortness of breath Primary Care Provider: Anna Dhaliwal MD Constantine Martinez is a 78 year old male who presents to the ER due to shortness of breath after missing his dialysis session on Saturday due to sciatica. After missing his dialysis 2 days ago he has been increasingly short f breath e specially on lying flat. No fever, chills, chest pain, presyncope or palpations. No gastrointestinal or urinary symptoms. He notably still produces significant amounts of urine. The left lower extremity radiating pain down the back of his leg started after his recent endovascular AAA repair. He was in the ER 2 days ago with this pain and resolved with pain medication in the ER but has continued to return since then with limited success of acetaminophen 500mg twice daily at home. Allergies Allergy/AdvReac Type Severity Reaction Status Date / Time Penicillins Allergy Unknown A CHILD Verified 06/17/24 05:53 COULD NOT TAKE Home Medications Medication Instructions Recorded Confirmed Type lorazepam 1 mg tablet 1 mg PO HS 04/15/19 07/02/24 History oxcarbazepine 300 mg tablet 300 mg PO BID 03/07/23 07/02/24 History (Trileptal) safety needles 25 gauge x 5/8" (BD #6 ea 03/22/23 06/03/24 Rx SafetyGlide Needle) syringe (disposable) 1 mL (BD #6 ea 03/22/23 06/03/24 Rx Syringe) ergocalciferol (vitamin D2) 1,250 50,000 unit PO MONTHLY #12 caps 06/06/23 07/02/24 Rx mcg (50,000 unit) capsule (Vitamin D2) tamsulosin 0.4 mg capsule 0.4 mg PO QAM 02/20/24 07/02/24 History furosemide 20 mg tablet 20 mg PO Q OTHER DAY #30 tabs 05/06/24 07/02/24 Rx amlodipine 5 mg tablet 5 mg PO QAM 06/05/24 07/02/24 History calcitriol 0.25 mcg capsule 0.25 mcg PO UD 06/05/24 07/02/24 History finasteride 5 mg tablet 5 mg PO QPM 06/05/24 07/02/24 History rosuvastatin 10 mg tablet 10 mg PO QAM 06/05/24 07/02/24 History oxycodone-acetaminophen 5 mg-325 1 tab PO Q6H PRN pain #20 tabs 06/18/24 07/02/24 Rx mg tablet (Percocet) sevelamer carbonate 800 mg tablet 800 mg PO TID 07/02/24 07/02/24 History Past Med/Surg History Problem List (Updated 07/02/24 @ 13:54 by Lan Garza DO) Pleural effusion (Acute) Hypertensive urgency Volume overload ESRD (end stage renal disease) Left lumbar radiculopathy Hypervolemia associated with renal insufficiency Sciatica of left side (Acute) AAA (abdominal aortic aneurysm) without rupture Bilateral inguinal hernia Infrarenal abdominal aortic aneurysm (AAA) without rupture Closed head injury Episode of syncope Cirrhosis Elevated troponin CKD (chronic kidney disease), stage V Anemia Pulmonary nodules Abnormal CT of the abdomen Elevated PSA Benign prostatic hyperplasia with elevated prostate specific antigen (PSA) (Chronic) Chronic obstructive pulmonary disease (Chronic) Chronic lymphocytic leukemia (Chronic) Kidney cysts noted on 06/05/18 MRI Hyperlipidemia (Chronic) Medical History History of chronic lymphocytic leukemia patient denies Bipolar disorder BPH (benign prostatic hyperplasia) Bilateral inguinal hernia COPD (chronic obstructive pulmonary disease) Cirrhosis patient denies Closed head injury syncopal epidsode after dialysis, 03/2024 Hyperlipidemia Stroke patient denies, no deficits Lung cancer Anemia due to chronic kidney disease Infarction of left thalamus End stage renal disease on dialysis Follows with Dr Hernandez, dialysis on Saturday/Saturday HTN (hypertension), benign Abdominal aneurysm 5.8 x 4.7cm imaging March 2024 Elevated prostate specific antigen (PSA) SNHL (sensorineural hearing loss) Squamous cell carcinoma History of diverticulitis Pre-diabetes Surgical History S/p bilateral carotid endarterectomy History of appendectomy S/P lobectomy of lung Left [id number] CHEMO/NO RADIATION-[facility] Hx of endoscopy UPPER Hx of colonoscopy Hx of oral surgery Family History Mother Heart disease Father Stroke Other Family history non-contributory Denies family history of Ovarian cancer Prostate cancer Myocardial infarction Breast cancer Colorectal cancer Social History Smoking Status: Former smoker Tobacco Type: Cigarettes Cigarettes Per Day: 20; Second Hand Exposure: No; Do You Dip or Chew Tobacco: No; Hx Alcohol Use: No Hx Substance Use: No Preferred Language: Hungarian Communication Ability: Effective Communication Ability Comment: SOME HARD OF HEARING / NO HEARING AIDES Visual Impairment: No Limitations Membership Sales Representative Required: No Beliefs That Will Affect Care: None marital status: Current Living Situation: Spouse Current Living Situation Comment: Home with spouse current occupational status: employed and retired 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[id number] [employer] How many Children do You have: 2 Feels Safe at Home: Yes Childhood Exposure to Second-Hand Smoke: No Diet: regular Diet Comment: avoids red meat caffeine: No Dental Care, Regularly: Yes Physical Activity Frequency: Daily Physical Activity Frequency Comment: Walking Seatbelt Use: always Sunscreen Use: Yes Assistive Devices: None Review of Systems Review of Systems: All systems reviewed & are unremarkable except as noted in HPI & below Physical Exam Constitutional: WD/WN, vitals as above ENMT: external ear and nose normal, oropharynx normal Respiratory: normal respiratory effort; no respiratory distress Cardiovascular: Rate/Rhythm: regular rate and regular rhythm Extremities: normal capillary refill and + pedal edema (1+ b/l equal); no calf tenderness Gastrointestinal (Abdomen): normal bowel sounds, soft, nontender, no hepatosplenomegaly Psychiatric: A+Ox3, euthymic affect Genitourinary: no CVA tenderness Results & Data Results & Data Vital Signs (Past 12 Hours) Vital Signs Temp Pulse Resp BP Pulse Ox O2 Del Method O2 Flow Rate 07/02/24 09:18 179/89 H 07/02/24 09:18 179/89 H 07/02/24 08:45 74 32 H 97 07/02/24 08:41 76 07/02/24 08:36 76 31 H 97 07/02/24 08:15 169/81 H 07/02/24 08:10 97 Room Air 07/02/24 08:10 Room Air 97 07/02/24 08:09 181/80 H 07/02/24 08:09 71 24 100 07/02/24 08:00 183/90 H 07/02/24 08:00 183/90 H 07/02/24 08:00 72 24 100 07/02/24 07:55 73 97 Room Air 07/02/24 07:50 188/92 H 07/02/24 07:45 74 29 H 97 07/02/24 07:39 79 28 H 98 07/02/24 07:31 203/109 H 07/02/24 07:25 36.4 C L 82 20 213/96 H 98 Room Air Laboratory Results Abnormal lab results 07/02/24 07/02/24 Range/Units 07:35 09:20 RBC 2.85 L (4.70-6.10) M/uL Hgb 8.7 L (14.0-18.0) g/dl Hct 26.5 L (42.0-52.0) % RDW Std Deviation 52.4 H (36.4-46.3) fL RDW Coeff of Stephen 15.5 H (11.5-14.5) % MPV 9.1 L (9.4-12.4) fL [place] # (Auto) 0.70 H (0.11-0.59) K/uL VBG pH 7.35 L (7.36-7.41) Sodium 135 L (136-145) mmol/L Anion Gap 12 H (3-11) BUN 44 H (6-23) mg/dl Creatinine 6.56 H* (0.6-1.4) mg/dl BUN/Creatinine Ratio 6.7 L (10-20) Calcium 8.5 L (8.6-10.3) mg/dl Alkaline Phosphatase 212 H (34-104) U/L Troponin I High Sens 20.5 H (0-20) pg/ml B-Natriuretic Peptide 3218 H (0-100) pg/ml Urine pH 8.0 H (4.5-7.5) Urine Protein 3+ H (Negative) Urine Glucose (UA) Trace H (Negative) Urine Blood Trace H (Negative) Diagnostic Findings CT ANGIOGRAPHY OF THE CHEST, PULMONARY EMBOLUS PROTOCOL CLINICAL HISTORY: Shortness of breath. Evaluate for pulmonary embolus. COMPARISON STUDY: Chest CT April 07, 2024 and chest radiograph performed earlier today. TECHNIQUE: Following IV administration of 112 mL of Optiray, helical axial images of the chest were obtained utilizing the pulmonary embolus protocol. Maximal intensity projections and sagittal and coronal reformats were viewed on an independent 3D workstation. IV contrast was administered without complication. Automated exposure control was utilized for the study. A dose lowering technique was utilized adhering to the principles of ALARA. CT DOSE: 1600.74 mGy.cm FINDINGS: No pulmonary emboli are identified. The heart is mildly enlarged. There is no pericardial effusion. No pneumothorax. No enlarged axillary, mediastinal or hilar lymph nodes are present. A moderate size right pleural effusion is present. There is a small partially loculated left pleural effusion. Interlobular septal thickening is present. Subpleural groundglass opacities fav or atelectasis. There is no consolidation to suggest pneumonia. No suspicious pulmonary nodules are present. A 7 mm subpleural nodule within the anterior segment of the right upper lobe on image 125 is unchanged from chest CT of March 15, 2020. This is benign given stability. The abdomen and pelvis CT will be reported separately. IMPRESSION: 1. No pulmonary emboli identified. 2. Cardiomegaly with interstitial pulmonary edema and moderate right and small left pleural effusions. The left pleural effusion is partially loculated. 3. 7 mm right upper lobe nodule which is unchanged from earlier exams. This is benign given stability. CT angio abdomen pelvis w con CLINICAL HISTORY: 78 years-old Male with SOB, recent AAA repair acute shortness of breath with generalized abdominal pain COMPARISON STUDY: CT chest of same day, CTA abdomen and pelvis 06/03/2024 TECHNIQUE: Following the IV administration of 112 cc of Optiray, CT angiogram of the abdomen and pelvis was performed from the lung bases the proximal femora. Images are reviewed in the axial, sagittal, and coronal planes. 3-D MIPS images are created and assessed. All measurements were obtained according to NASCET criteria. IV contrast was administered without complication. A dose lowering technique was utilized adhering to the principles of ALARA. FINDINGS: CTA: Heart is mildly enlarged. No pericardial effusion. Moderate coronary artery calcifications. Moderate atherosclerosis of the descending thoracic aorta. Infrarenal abdominal aortic aneurysm redemonstrated previously measured at 6.1 x 4.8 cm. Today's study this measures 6.4 x 5.0 cm. Patent aortobiiliac stent graft. There are large type II endoleak cysts associated with the inferior mesenteric and lumbar arteries. The posterior endoleak measures up to approximately 3.5 cm. Calcified plaque within the proximal left superficial femoral artery results in high-grade stenosis. This is partially imaged. There is patency of the celiac trunk, superior mesenteric and renal arteries. Stranding within the retroperitoneal tissues without acute hemorrhage identified. CT ABDOMEN/PELVIS: Moderate with [id number] left pleural effusions. 6 mm solid nodule in the right middle lobe on image 25 series 7 is unchanged. Mild intralobular septal thickening suggestive of interstitial pulmonary edema. Dependent subsegmental bibasilar atelectasis. No free air. The spleen is enlarged measuring 15.3 cm. Indeterminate 1.4 cm hypodense focus of the posterior inferior spleen, likely benign. Unremarkable adrenal glands. Cholelithiasis. The liver is within normal limits. Patency of the portal vein. Cortical thinning of the kidneys. Innumerable bilateral renal cysts. Numerous intermediate density lesions of the kidneys are incompletely characterized on this exam. This includes a 1.2 cm lesion of the left kidney on image 194, a 2.2 cm lesion of the right kidney on image 179 and a 10 mm lesion of the right kidney on image 195. No hydronephrosis. Prostatomegaly. Urinary bladder wall thickening with partial distention. Bilateral fat filled inguinal hernias. The left inguinal hernia contains a loop of nonobstructed bowel. Colonic diverticulosis without acute diverticulitis. Mild wall thickening throughout the mid sigmoid appears chronic. Moderate colonic fecal retention. The appendix appears surgically absent. Degenerative changes of the spine, pelvis and hips. IMPRESSION: 1. Infrarenal abdominal aortic aneurysm redemonstrated status post placement of an aortobiiliac stent graft which is patent. 2. There are two large type II endoleak's associated with inferior mesenteric and lumbar arteries. 3. Cardiomegaly with interstitial pulmonary edema, layering pleural effusions with bibasilar atelectasis. 4. Cholelithiasis. 5. Renal cysts with indeterminate bilateral renal lesions redemonstrated. 6. Colonic diverticulosis without definite CT evidence of acute diverticulitis. 7. Bowel containing left inguinal hernia without obstruction. Medications Administered ER Medications Given: DuoNeb 3 mL neb Nitroglycerin 0.4 mg sublingual ECG Rate (beats per minute): 78 Rhythm: normal sinus Findings: + nonspecific-ST abn (Lateral) Comparison ECG Date: from (June 30, 2024) Change: no significant change Code Status & VTE Plan Code Status Full VTE Prophylaxis Plan VTE Prophylaxis will be ordered: Yes PG Care Time/CCT Total # of Minutes Spent Total Time Spent with Patient: Total time spent is greater than 50% in coordination of care (as documented) at patient's floor/unit and/or counseling patient: Coding Level of Care Code 08828 INT INP/OBS CARE 3/75MIN Diagnoses Hypervolemia associated with renal insufficiency E87.70; N28.9 Left lumbar radiculopathy M54.[address] of the abdomen R93.5 Hypertensive urgency I16.0 End stage renal disease on dialysis N18.6; Z99.2
--- NOTE | 2024-07-02 10:49 | Nephrology Consultation ---
Date of Consultation July 02, 2024 Assessment & Plan (1) ESRD (end stage renal disease): (2) Anemia: (3) Hypertensive urgency: (4) Hyperlipidemia: (5) Volume overload: Plan End-stage kidney disease, on hemodialysis since March 2024, has been on TTS schedule but usually he only goes twice a week. Admitted with SOB, with volume overload, Hypertensive urgency and missed HD. Last dialysis was on 06/27/24. CTA with no PE but has b/l Pl effusion and pulmonary congestion. Almost 4 kg above his EDW. Hb low but stable. BNP elevated, troponin normal. Blood pressure significantly elevated with evidence of volume overload including b/l pleural effusion, Pulmonary congestion and LE edema. --will schedule for urgent dialysis for 4 h, UF around 3 to 4 L as tolerated, aim to reach EDW on 63 kg. Will assess tomorrow for need for extra HD and UF. --continue Renvela 1 tab 3 times daily with meal, renal vitamin daily --Epogen 20,000 units 1 dose with dialysis today. --Left arm nephrology precaution, dose medications for GFR less than 10 --Avoid IV fluid --continue Lasix Thank you for allowing me to participate in your patient's care. It was a pleasure to see Jesús. History of Present Illness Reason for Consultation: ESKD on HD, SOB, volume overload, missed HD and need for emergency dialysis History of Present Illness Mr. Constantine Martinez is a 78-year-old male with ESKD on HD, presented to ER with shortness of breath, volume overload, missed dialysis. Nephrology consult requested for management of hemodialysis while inpatient. EMR records were reviewed in detail during patient's visit. Carrie was at bedside Mr. Martinez presented to the ER with cough and shortness of breath since yesterday. He was seen in ER 2 days ago with back pain with history of sciatica and was discharged from the ER after pain completely resolved in ER with IV Dilaudid. He missed dialysis Saturday. Today he presented again to the ER with cough and shortness of breath since yesterday. No fever, chills. Blood pressure was significantly elevated with systolic blood pressure 170s to 180s. CTA of chest was negative for pulmonary embolism but noted to have moderate right pleural effusion and small left pleural effusion. BNP was elevated at about 3000. Troponin was normal. Electrolytes were acceptable. Hemoglobin was 8.7. He was almost 4 kg above his dry weight of 63 kg as of outpatient dialysis record. End-stage kidney disease attributed to h/o lithium use and calcific vascular disease, started on hemodialysis on 03/30/2024 via left RC AVF ( placed in [address] Patel), dialyzes at [facility] on Saturday, , Saturday with the dialysis prescription of: 3.5 hours, using 16-gauge needle, blood flow 250, was on 3K 2.5 calcium bath, sodium 140. However, he has been going for dialysis mostly twice a week as he did not feel well when he was going for 3 times a week. His last dialysis was on 06/27/2024 and missed dialysis Saturday. He still makes urine. Prior kidney imaging showed multiple cysts in both kidneys. Has history of high-grade proteinuria, prior paraproteinemia workup was unremarkable. Medical history is notable for AAA status post endovascular repair on 06/17/2024, borderline personality disorder, LISA, hypertension, BPH with elevated PSA (followed by Dr. Panda - biopsy x 2 completed, hyperlipidemia, COPD with a past smoking history. 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 He follows with Dr. Avelino Linares in the oncology clinic. He is monitored for a chronic B-cell CLL that has not required additional treatment. He reports feeling slightly better and his shortness of breath somewhat improved. Currently oxygen saturation 97% on room air. Clinically he does seem slightly volume overloaded. Blood pressure remain elevated. Allergies Allergy/AdvReac Type Severity Reaction Status Date / Time Penicillins Allergy Unknown A CHILD Verified 06/17/24 05:53 COULD NOT TAKE Home Medications Medication Instructions Recorded Confirmed Type lorazepam 1 mg tablet 1 mg PO HS 04/15/19 07/02/24 History oxcarbazepine 300 mg tablet 300 mg PO BID 03/07/23 07/02/24 History (Trileptal) safety needles 25 gauge x 5/8" (BD #6 ea 03/22/23 06/03/24 Rx SafetyGlide Needle) syringe (disposable) 1 mL (BD #6 ea 03/22/23 06/03/24 Rx Syringe) ergocalciferol (vitamin D2) 1,250 50,000 unit PO MONTHLY #12 caps 06/06/23 07/02/24 Rx mcg (50,000 unit) capsule (Vitamin D2) tamsulosin 0.4 mg capsule 0.4 mg PO QAM 02/20/24 07/02/24 History furosemide 20 mg tablet 20 mg PO Q OTHER DAY #30 tabs 05/06/24 07/02/24 Rx amlodipine 5 mg tablet 5 mg PO QAM 06/05/24 07/02/24 History calcitriol 0.25 mcg capsule 0.25 mcg PO UD 06/05/24 07/02/24 History finasteride 5 mg tablet 5 mg PO QPM 06/05/24 07/02/24 History rosuvastatin 10 mg tablet 10 mg PO QAM 06/05/24 07/02/24 History oxycodone-acetaminophen 5 mg-325 1 tab PO Q6H PRN pain #20 tabs 06/18/24 07/02/24 Rx mg tablet (Percocet) doxazosin 4 mg tablet 4 mg PO BID 07/02/24 07/02/24 History sevelamer carbonate 800 mg tablet 800 mg PO TID 07/02/24 07/02/24 History Patient History Medical History History of chronic lymphocytic leukemia patient denies Bipolar disorder BPH (benign prostatic hyperplasia) Bilateral inguinal hernia COPD (chronic obstructive pulmonary disease) Cirrhosis patient denies Closed head injury syncopal epidsode after dialysis, 03/2024 Hyperlipidemia Stroke patient denies, no deficits Lung cancer Anemia due to chronic kidney disease Infarction of left thalamus End stage renal disease on dialysis Follows with Dr Hernandez, dialysis on Saturday/Saturday HTN (hypertension), benign Abdominal aneurysm 5.8 x 4.7cm imaging March 2024 Elevated prostate specific antigen (PSA) SNHL (sensorineural hearing loss) Squamous cell carcinoma History of diverticulitis Pre-diabetes Surgical History S/p bilateral carotid endarterectomy History of appendectomy S/P lobectomy of lung Left [id number] CHEMO/NO RADIATION-[facility] Hx of endoscopy UPPER Hx of colonoscopy Hx of oral surgery Family History Mother Heart disease Father Stroke Other Family history non-contributory Denies family history of Ovarian cancer Prostate cancer Myocardial infarction Breast cancer Colorectal cancer Social History Smoking Status: Never smoker Tobacco Type: Cigarettes Cigarettes Per Day: 20; Second Hand Exposure: No; Do You Dip or Chew Tobacco: No; Hx Alcohol Use: No Hx Substance Use: No Preferred Language: Faroese Communication Ability: Effective Communication Ability Comment: SOME HARD OF HEARING / NO HEARING AIDES Visual Impairment: No Limitations Consultant Technology Required: No Beliefs That Will Affect Care: None marital status: Current Living Situation: Spouse Current Living Situation Comment: Home with spouse current occupational status: employed and retired 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 [id number] How many Children do You have: 2 Feels Safe at Home: Yes Childhood Exposure to Second-Hand Smoke: No Diet: regular Diet Comment: avoids red meat caffeine: No Dental Care, Regularly: Yes Physical Activity Frequency: Daily Physical Activity Frequency Comment: Walking Seatbelt Use: always Sunscreen Use: Yes Assistive Devices: Glasses Review of Systems Review of Systems: All systems reviewed & are unremarkable except as noted in HPI & below Physical Exam Constitutional: WD/WN, vitals as above + ill appearing; no acute distress Eyes: + anicteric sclerae Neck: normal visual inspection Respiratory: no respiratory distress Auscultation: + crackles; no wheezes Cardiovascular: Extremities: + edema and + AV fistula (left RC AVF) Gastrointestinal (Abdomen): Inspection/Auscultation: abdomen normal to inspection Percussion/Palpation: abdomen soft; abdomen nontender Musculoskeletal: Extremities: extremities normal to inspection Skin: no rashes, warm and dry Neurologic: no focal motor deficits Psychiatric: Orientation: alert and oriented x 3 Affect: euthymic affect Results & Data Vital Signs (Past 12 Hours) Vital Signs Temp Pulse Resp BP Pulse Ox O2 Del Method O2 Flow Rate 07/02/24 09:18 179/89 H 07/02/24 09:18 179/89 H 07/02/24 08:45 74 32 H 97 07/02/24 08:41 76 07/02/24 08:36 76 31 H 97 07/02/24 08:15 169/81 H 07/02/24 08:10 97 Room Air 07/02/24 08:10 Room Air 97 07/02/24 08:09 181/80 H 07/02/24 08:09 71 24 100 07/02/24 08:00 183/90 H 07/02/24 08:00 183/90 H 07/02/24 08:00 72 24 100 07/02/24 07:55 73 97 Room Air 07/02/24 07:50 188/92 H 07/02/24 07:45 74 29 H 97 07/02/24 07:39 79 28 H 98 07/02/24 07:31 203/109 H 07/02/24 07:25 36.4 C L 82 20 213/96 H 98 Room Air PG Care Time/CCT Total # of Minutes Spent Total Time Spent with Patient: Total time spent is greater than 50% in coordination of care (as documented) at patient's floor/unit and/or counseling patient: Coding Level of Care Code 77060 INT INP/OBS CARE 3/75MIN Diagnoses ESRD (end stage renal disease) N18.6 Anemia D64.9 Hypertensive urgency I16.0 Hyperlipidemia E78.5 Volume overload E87.70
[2024-07-02] MEDS: oxyCODONE HCL IR 5 MG TAB (IMMEDIATE RELEASE) PO STA (11:42)
[2024-07-02] MEDS: TAMSULOSIN HCL 0.4 MG CAP PO STA (11:43)
[2024-07-02] MEDS: OXcarbazepine 150 MG TABLET PO STA (11:43)
[2024-07-02] MEDS: EPOETIN ALFA 20,000 UNITS/ML VIAL IV STA (12:58)
[2024-07-02] MEDS: SEVELAMER CARBONATE 800 MG TAB PO SCH (13:09)
[2024-07-02] MEDS: ACETAMINOPHEN 500 MG TAB PO STA (13:49)
[2024-07-02] MEDS: amLODIPine BESYLATE 5 MG TAB PO STA (15:24)
[2024-07-02] MEDS: FUROSEMIDE 40 MG/4 ML VIAL IV ONE (15:24)
[2024-07-02] MEDS ORDERED: oxyCODONE HCL IR 5 MG TAB (IMMEDIATE RELEASE) PO PRN (20:07)
[2024-07-02] MEDS: ACETAMINOPHEN 500 MG TAB PO SCH (21:02)
[2024-07-02] MEDS: DOXAZosin MESYLATE 4 MG TAB PO SCH (21:03)
[2024-07-02] MEDS: LORazepam 1 MG TAB PO SCH (21:03)
[2024-07-02] MEDS: OXcarbazepine 150 MG TABLET PO SCH (21:03)
[2024-07-02] MEDS: FINASTERIDE 5 MG TAB PO SCH (22:12)
[2024-07-03 08:07] LABS: Mean Corpuscular Volume 93.6 fL (80.0-100.0); Mean Platelet Volume 9.3 fL (9.4-12.4); Platelet Count 150 K/uL (130-400); RDW Standard Deviation 54.7 fL (36.4-46.3); Red Blood Count 2.67 M/uL (4.70-6.10); White Blood Count 8.31 K/ul (4.8-10.8)
[2024-07-03 08:18] LABS: Albumin Level 3.3 gm/dl (3.4-5.0); BUN Creatinine Ratio 7.2 (10-20); Calcium 8.3 mg/dl (8.6-10.3); Creatinine Clr Calc Pharmacy 8.2 ml/min; Phosphorus 8.1 mg/dl (2.5-4.9); Potassium 5.2 mmol/L (3.5-5.1)
[2024-07-03] MEDS: TAMSULOSIN HCL 0.4 MG CAP PO SCH (08:30)
[2024-07-03] MEDS: ROSUVASTATIN CALCIUM 10 MG TAB PO SCH (08:30)
[2024-07-03] MEDS: CALCITRIOL 0.25 MCG CAPSULE PO SCH (08:30)
[2024-07-03] MEDS: NEPHROCAPS PO SCH (08:30)
--- NOTE | 2024-07-03 10:06 | Nephrology Progress Note ---
Date of Service July 03, 2024 Assessment & Plan (1) ESRD (end stage renal disease): (2) Anemia: (3) Hypertensive urgency: (4) Hyperlipidemia: (5) Volume overload: Plan End-stage kidney disease, on hemodialysis since March 2024, has been on TTS schedule but usually he only goes twice a week. Admitted with SOB, with volume overload, Hypertensive urgency and missed HD. Last dialysis was on 06/27/24. CTA with no PE but has b/l Pl effusion and pulmonary congestion. 4 kg above his EDW. Hb low but stable. BNP elevated, troponin normal. Blood pressure elevated with evidence of volume overload including b/l pleural effusion, Pulmonary congestion and LE edema but clinically asymptomatic. AVF infiltrated yesterday and was not able to have HD. --dialysis now for 4 h, UF 4 L , aim to reach EDW on 63 kg. AVF functioning well today. --continue Renvela 1 tab 3 times daily with meal, renal vitamin daily --Epogen 20,000 units 1 dose with dialysis today. --Left arm nephrology precaution, dose medications for GFR less than 10 --Avoid IV fluid --continue Lasix. Admission and Anticipated Discharge Date Admission Date: July 02, 2024 Subjective Jesús was seen and evaluated this morning. Denies SOB, CP but reports feeling thirsty. BP still high but improved. 4 Kg above EDW. AVF working after infiltration yesterday. Review of Systems Review of Systems: Detail ROS was unremarkable. Physical Exam Constitutional: WD/WN, vitals as above + ill appearing; no acute distress Eyes: + anicteric sclerae Neck: normal visual inspection Respiratory: no respiratory distress Auscultation: + crackles; no wheezes Cardiovascular: Extremities: + edema and + AV fistula (left RC AVF) Musculoskeletal: Extremities: extremities normal to inspection Skin: no rashes, warm and dry Neurologic: no focal motor deficits Psychiatric: Orientation: alert and oriented x 3 Affect: euthymic affect Results & Data Vital Signs (Past 12 Hours) Vital Signs Temp Pulse Pulse Resp BP Pulse Ox O2 Del Method 07/03/24 07:46 Room Air 07/03/24 07:45 36.5 C 75 20 162/85 H 94 Room Air 07/03/24 03:09 36.4 C L 70 16 155/73 H 94 Room Air 07/02/24 23:45 91 H 07/02/24 22:57 Room Air 07/02/24 22:29 36.7 C 79 18 147/81 H 95 Room Air PG Care Time/CCT Total # of Minutes Spent Total Time Spent with Patient: Total time spent is greater than 50% in coordination of care (as documented) at patient's floor/unit and/or counseling patient: Coding Level of Care Code 15445 SUB INP/OBS CARE 2/35MIN Diagnoses ESRD (end stage renal disease) N18.6 Anemia D64.9 Hypertensive urgency I16.0 Hyperlipidemia E78.5 Volume overload E87.70
--- NOTE | 2024-07-03 10:38 | Hospitalist Progress Note ---
<Statement entered by Natty De La Paz MD - 07/03/24 16:53> I have reviewed vital signs, chart notes, labs and imaging. I have also discussed the management of the patient with the NAUN and I agree with the exam findings documented in the history and physical examination and the documented assessment and plan unless otherwise stated below. 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 labs K of 5.2 was able to undergo successful hemodialysis today Date of Service July 03, 2024 Assessment & Plan (1) Hypervolemia associated with renal insufficiency: Plan: Secondary to missed dialysis Recieved IV lasix after unable to have dialysis 07/02 Nephrology consulted - dialysis 07/03 - continue renvela TID - continue lasix (2) Left lumbar radiculopathy: Plan: Following recent percutaneous Endovascular Abdominal Aortic Aneurysm Repair - suspect just from movement from the operation Acetaminophen 1g PO TID Oxycodone 2.5-5mg q4h PRN Encourage ambulation Heat pad prn (3) Abnormal CT of the abdomen: Plan: ER discussed type II leaks on CT with vascular surgery and no intervention required - "should resolve on their own within the next year". (4) Hypertensive urgency: Plan: Secondary to missed morning medications and dialysis Give morning medications now, management per dialysis as above (5) End stage renal disease on dialysis: Plan BPH - continue tamsulosin + finasteride Bipolar - continue oxcarbazepine VTE Prophylaxis - encourage ambulation Disposition - continued inpatient stay Admission and Anticipated Discharge Date Admission Date: July 02, 2024 Subjective Patient seen during dialysis. States he more so came in because of his sciatic pain. This is improved but he has not moved around yet given that he is at dialysis. Did have some shortness of breath that has subjectively improved after neb treatment. Last dialysis session was Saturday - discussed that with all the fluid on his lung, that it is going to be hard to breath TELE - 70s Review of Systems Review of Systems: All systems reviewed & are unremarkable except as noted in Subjective Physical Exam Physical Exam: General: NAD, VS as above HEENT: MM dry Resp: normal respiratory effort, diminished in the bases CV: RRR, no murmur, Extremities: Moves all extremities, trace LE edema . Dialysis fistula in use left arm Neuro: A&O x3, Skin: intact, no lesions noted Results & Data Results & Data Vital Signs (Past 12 Hours) Vital Signs Temp Pulse Pulse Resp BP Pulse Ox O2 Del Method 07/03/24 10:17 73 07/03/24 07:46 Room Air 07/03/24 07:45 97.7 F 75 20 162/85 H 94 Room Air 07/03/24 03:09 97.5 F L 70 16 155/73 H 94 Room Air 07/02/24 23:45 91 H 07/02/24 22:57 Room Air Laboratory Results CBC and chemistry and phos reviewed PG Care Time/CCT Total # of Minutes Spent Total Time Spent with Patient: Total time spent is greater than 50% in coordination of care (as documented) at patient's floor/unit and/or counseling patient: Coding Level of Care Code 70448 SUB INP/OBS CARE 3/50MIN Diagnoses Hypervolemia associated with renal insufficiency E87.70; N28.9 Left lumbar radiculopathy M54.[address] of the abdomen R93.5 Hypertensive urgency I16.0 End stage renal disease on dialysis N18.6; Z99.2
[2024-07-03] MEDS: EPOETIN ALFA 20,000 UNITS in SYRINGE 0 ML IV SCH (12:01)
[2024-07-03] MEDS: FUROSEMIDE 20 MG TAB PO SCH (14:17)
[2024-07-03] MEDS: amLODIPine BESYLATE 5 MG TAB PO SCH (14:17)
[2024-07-03] MEDS: ALBUTEROL 0.5% NEB SOLN 2.5 MG/0.5 ML VIAL NEB PRN (18:25)
[2024-07-04] MEDS: oxyCODONE HCL IR 5 MG TAB (IMMEDIATE RELEASE) PO PRN (00:54)
[2024-07-04 06:39] LABS: Basophils # (auto) 0.05 K/uL (0.00-0.20); Basophils % (auto) 0.8 %; Hemoglobin 7.7 g/dl (14.0-18.0); Immature Granulocytes # (auto) 0.02 K/uL (0.01-0.20); Immature Granulocytes % (auto) 0.3 %; Lymphocytes # (auto) 2.26 K/uL (1.20-3.40); Mean Corpuscular Hemoglobin 30.4 pg (25.0-34.0); Mean Corpuscular Hgb Conc 32.1 g/dL (32.0-36.0); Mean Corpuscular Volume 94.9 fL (80.0-100.0); Mean Platelet Volume 9.2 fL (9.4-12.4); Monocytes # (auto) 0.56 K/uL (0.11-0.59); Monocytes % (auto) 8.7 %; Neutrophils # (auto) 3.56 K/uL (1.40-6.50); Neutrophils % (auto) 55.2 %; Platelet Count 131 K/uL (130-400); RDW Coefficient of Variation 15.8 % (11.5-14.5); RDW Standard Deviation 54.6 fL (36.4-46.3); Red Blood Count 2.53 M/uL (4.70-6.10); White Blood Count 6.45 K/ul (4.8-10.8)
[2024-07-04 06:53] LABS: BUN Creatinine Ratio 5.5 (10-20); Calcium 8.1 mg/dl (8.6-10.3); Creatinine Clr Calc Pharmacy 13.4 ml/min; Phosphorus 4.8 mg/dl (2.5-4.9); Potassium 3.9 mmol/L (3.5-5.1)
[2024-07-04 07:22] LABS: RBC Morphology Unremarkable
[2024-07-04 07:59] VITALS: RESP 16; TEMP 97.3
[2024-07-04 11:27] VITALS: BP 151/73; O2SAT 96
--- NOTE | 2024-07-04 11:35 | Nephrology Progress Note ---
Date of Service July 04, 2024 Assessment & Plan (1) ESRD (end stage renal disease): Plan: Maintained on IHD TTS at [facility] since March 2024. Multiple missed treatments. Presented to the hospital with volume overload. This was managed with HD yesterday. Volume status is currently acceptable. Electrolytes controlled. There is no plan for HD today. Importance of adherence with HD Rx and dietary sodium/fluid restriction was reivewed. Next HD planned for Saturday. AVF infiltrated on but was able to be used for treatment yesterday. Continue Lasix to encourage urine output. (2) Anemia: Plan: Chronic. Asymptomatic. Epogen 20,000 units 1 dose provided with HD yesterday. . (3) Volume overload: Plan: Improved with UF. Remains non-oliguric. Importance of dietary sodium and fluid restriction reviewed. Admission and Anticipated Discharge Date Admission Date: July 02, 2024 Subjective No acute events overnight. Constantine tolerated HD well yesterday. No complications with treatment. He is breathing comfortably this AM. He denies pain this AM but reports concerns related to recurrent sciatica. He describes episodes of pain radiating down the left leg which has improved with Tylenol and oxycodone. He notes that oxycodone numbs the pain but does not take away the discomfort. He did not sleep well last night. He would like to go home today. Constantine feels that he will be more comfortable at home. I discussed the plan of care with Dr. De La Paz this AM. Review of Systems Review of Systems: All systems reviewed & are unremarkable except as noted in HPI & below Physical Exam Constitutional: + thin and + frail appearing; no acute d istress Eyes: + anicteric sclerae; no corneal abnormal ity ENMT: Mouth: no oral mucosal abnormality and oral mucous membranes not dry Neck: normal visual inspection and trachea midline Respiratory: normal respiratory effort Auscultation: lungs clear to auscultation bilaterally Cardiovascular: Rate/Rhythm: regular rate Heart Sounds: normal S1 and normal S2 Extremities: + pedal edema and + AV fistula (L forearm) Musculoskeletal: Extremities: no cyanosis and no clubbing Skin: no jaundice Neurologic: Motor/Sensory: no tremor and no asterixis Psychiatric: Orientation: alert and oriented x 3 Results & Data Vital Signs (Past 12 Hours) Vital Signs Temp Pulse Pulse Resp BP Pulse Ox O2 Del Method 07/04/24 11:27 36.3 C L 81 16 151/73 H 96 Room Air 07/04/24 07:58 36.3 C L 78 16 173/81 H 95 Room Air 07/04/24 07:17 71 07/04/24 04:00 36.5 C 79 18 151/82 H 95 Room Air Laboratory Results Laboratory Results - last 24 hr 07/04/24 05:40 WBC 6.45 RBC 2.53 L Hgb 7.7 L Hct 24.0 L MCV 94.9 MCH 30.4 MCHC 32.1 RDW Std Deviation 54.6 H RDW Coeff of Stephen 15.8 H Plt Count 131 MPV 9.2 L Immature Gran % (Auto) 0.3 Neut % (Auto) 55.2 Lymph % (Auto) 35.0 [place] % (Auto) 8.7 Eos % (Auto) 0.0 Baso % (Auto) 0.8 Neut # (Auto) 3.56 Lymph # (Auto) 2.26 [place] # (Auto) 0.56 Eos # (Auto) 0.00 Baso # (Auto) 0.05 Immature Gran # (Auto) 0.02 RBC Morphology Unremarkable Sodium 137 Potassium 3.9 D Chloride 100 Carbon Dioxide 28 Anion Gap 9 BUN 23 D Creatinine 4.17 H D Est Cr Clr Drug Dosing 13.4 eGFR 13.88 BUN/Creatinine Ratio 5.5 L Glucose 79 Calcium 8.1 L Phosphorus 4.8 D PG Care Time/CCT Total # of Minutes Spent Total Time Spent with Patient: Total time spent is greater than 50% in coordination of care (as documented) at patient's floor/unit and/or counseling patient: Coding Level of Care Code 87527 SUB INP/OBS CARE 3/50MIN Diagnoses ESRD (end stage renal disease) N18.6 Anemia D64.9 Volume overload E87.70
[2024-07-04 11:48] VITALS: PULSE 88
--- NOTE | 2024-07-04 14:12 | Discharge Summary ---
Discharge Summary Date of Service July 04, 2024 Principal Dx & Hospital Course #1 = Principal Diagnosis (1) Hypervolemia associated with renal insufficiency: 78-year-old man with ESRD on hemodialysis who presented to the ED with left- sided low back pain radiating to buttock/upper thigh and fluid overload from missed dialysis, both these occurred after endovascular procedure to treat abdominal aneurysm earlier this week. He did miss dialysis treatment for the procedure, he tends to only go to dialysis twice a week he does make urine and takes diuretics. He presented in hypertensive urgency and with pulmonary edema. Volume overload secondary to missed dialysis resolved with IV Lasix, unfortunately his fistula infiltrated during his first dialysis session. The edema improved however and he had successful hemodialysis yesterday with re solution of volume overload. Nephrology consulted this admission, his audio/visual manager Dr. Hernandez was able to see him today counseled him on topics of ongoing dialysis, fluid and salt restriction. His next dialysis is scheduled as an outpatient on Saturday. (2) Left lumbar radiculopathy: Presented with acute left-sided sciatica. I think this was precipitated by positioning necessary for his endovascular AAA repair recently he did have an MRI of the lumbar spine April of this year which showed only mild lumbar spinal stenosis other than that the most notable finding was moderate foraminal stenosis at left L4/L5. Irritation of this nerve root would explain his sciatica symptoms. Conservative care is recommended. Pain improved with scheduled acetaminophen, oxycodone 5 mg p.o. as needed, recommended heat/ice and maintaining mobility. Consider low-dose gabapentin however I did not start this because of polypharmacy and impaired renal clearance, he also takes lorazepam at nighttime and oxcarbazepine. If not resolving promptly and pain control remains an issue gabapentin 100 mg at at bedtime can be considered in addition steroid injection of the nerve root can be considered. (3) Abnormal CT of the abdomen: Noted on admitting CTA of the abdomen ER discussed type II leaks on CT with vascular surgery and no intervention re quired - "should resolve on their own within the next year". (4) Hypertensive urgency: Secondary to missed morning medications and volume overload from missed dialysis resolved (5) End stage renal disease on dialysis: Plan BPH - continue tamsulosin + finasteride Bipolar - continue oxcarbazepine Notes For Next Care Provider Medication Changes From Visit oxycodone 5 mg, #20 tabs prescribed, recommended scheduled acetaminophen Admission HPI Per Admitting Provider Constantine Martinez is a 78 year old male who presents to the ER due to shortness of breath after missing his dialysis session on Saturday due to sciatica. After missing his dialysis 2 days ago he has been increasingly short f breath especially on lying flat. No fever, chills, chest pain, presyncope or palpations. No gastrointestinal or urinary symptoms. He notably still produces significant amounts of urine. The left lower extremity radiating pain down the back of his leg started after his recent endovascular AAA repair. He was in the ER 2 days ago with this pain and resolved with pain medication in the ER but has continued to return since then with limited success of acetaminophen 500mg twice daily at home. Discharge Exam PHYSICAL EXAMINATION Last 24h vital signs reviewed, see documentation in flowsheet General: comfortable appearing, no distress HEENT: Normocephalic, atraumatic, pupils round and equal, sclerae anicteric, no conjunctival injection, moist mucus membranes Lungs: Normal respiratory effort. Clear to auscultation bilaterally. No RRW Heart: Regular rate and rhythm, no murmurs. No JVD Abdomen: Soft, nontender, nondistended. Bowel sounds present. Extremities: Warm, dry, well-perfused. No extremity edema. sarcopenia of upper and lower extremities present AV fistula left upper extremity without swelling, thrill present Neuro: Alert and oriented x 4, face symmetric, moves 4 extremities well Psych: Normal affect and behavior Discharge Plan Discharge Items Patient Disposition: Home - Self-Care Reason For Visit: HYPERVOLEMIA DUE TO Discharge Diagnosis: hypertensive urgency from volume overload from missed hemodialysis, left sciatica flare Activity: Resume your previous activity Non-emergency contact: Primary Care Provider and Shuttler Call non-emergency contact if: you have any medication questions and your symptoms worsen Follow-up/Referrals: Daniel Hernandez DO [Physician] - Anna Dhaliwal MD [Primary Care Provider] - Diet: Dialysis Renal Addtl Attending Provider Instructions: Fluid overload from getting behind on dialysis, causing severely high blood pressure -treated with diuretics and dialysis Sciatica flare - this probably was triggered by positioning necessary for your aneurysm procedure Based on your recent lumbar spine MRI in April there is only mild spinal stenosis but there is some moderate narrowing of the bony tunnel where the L4/5 nerve root exits the spine - this nerve root is likely irritated and causing your pain - most of the time these flares resolve over a couple of days to weeks - take acetaminophen [id number] to help with pain - max 3000 mg per day. This will not affect your kidneys - no NSAIDS because of kidney disease (ibuprofen or naproxen) - oxycodone as needed for more severe pain - this can make you sleepy/sedated - do not drive or operate heavy machinery while taking this medication -oxycodone can cause constipation - use senna or miralax if needed - these are available at the drug store -heat/ice may help and keep moving, gentle stretching is ok -follow up with primary care. If this is not helping, you can consider adding a small dose of gabapentin at bedtime (though this causes risk of confusion and grogginess) or a steroid injection of the nerve root It was a pleasure taking care of you in the hospital, Natty De La Paz MD Pending Studies at Discharge: No Stand-Alone Forms: [facility], Pain - Opioid Pain Management, Smoking Cessation Medications and DC Order Prescriptions: New acetaminophen [Tylenol Extra Strength] 500 mg Tablet 1,000 mg PO TID Qty: 0 0RF oxycodone 5 mg Tablet 5 mg PO Q4H PRN (Reason: pain) Qty: 20 0RF Continued (DME) BD SafetyGlide Needle 25 gauge x 5/8" needle See Rx Instructions .Route Qty: 6 3RF Rx Instructions: As directed (DME) BD Syringe 1 mL syringe See Rx Instructions .Route Qty: 6 3RF Rx Instructions: As directed ergocalciferol (vitamin D2) [Vitamin D2] 1,250 mcg (50,000 unit) capsule 50,000 unit PO MONTHLY Qty: 12 0RF Rx Instructions: ON FIRST DAY OF THE MONTH furosemide 20 mg tablet 20 mg PO Q OTHER DAY Qty: 30 2RF Rx Instructions: Every Saturday, Saturday, and Saturday. tamsulosin 0.4 mg capsule 0.4 mg PO QAM lorazepam 1 mg tablet 1 mg PO HS oxcarbazepine [Trileptal] 300 mg tablet 300 mg PO BID amlodipine 5 mg tablet 5 mg PO QAM calcitriol 0.25 mcg capsule 0.25 mcg PO UD Rx Instructions: 0.25 mcg orally every saturday, saturday, and saturday; finasteride 5 mg tablet 5 mg PO QPM rosuvastatin 10 mg tablet 10 mg PO QAM sevelamer carbonate 800 mg tablet 800 mg PO TID Discontinued oxycodone-acetaminophen [Percocet] 5-325 mg tablet 1 tab PO Q6H PRN (Reason: pain) Qty: 20 0RF Discharge Orders: Discharge Order (Routine); Ordered 07/04/24 Ordered By: Natty Dominguez/Other Patient Handouts: ED Sciatica Admission Data Admit Date/Time: 07/02/24 10:29 Attending Provider: Natty De La Paz Admit Provider: Riley Henderson Primary Care Provider: Anna Dhaliwal Other Providers: Vandnaa Marcelino; Riley Henderson Other Interventions: Discharge Summary Assessment (RN) Last Done: 07/04/24 11:46 Hospital Stay Data Consultations 07/02/24 09:44 Consult Nephrology Stat 07/02/24 10:08 ED Decision to Admit Stat Diagnostic Imagining Performed 07/02/24 07:55 CT angio abdomen pelvis w con Stat CT angio chest PE protocol Stat Pending Results Patient Have Any Pending Studies at Discharge: No Discharge Instructions Given to Patient (Per Discharging Provider) Fluid overload from getting behind on dialysis, causing severely high blood pressure -treated with diuretics and dialysis Sciatica flare - this probably was triggered by positioning necessary for your aneurysm procedure Based on your recent lumbar spine MRI in April there is only mild spinal stenosis but there is some moderate narrowing of the bony tunnel where the L4/5 nerve root exits the spine - this nerve root is likely irritated and causing your pain - most of the time these flares resolve over a couple of days to weeks - take acetaminophen [id number] to help with pain - max 3000 mg per day. This will not affect your kidneys - no NSAIDS because of kidney disease (ibuprofen or naproxen) - oxycodone as needed for more severe pain - this can make you sleepy/sedated - do not drive or operate heavy machinery while taking this medication -oxycodone can cause constipation - use senna or miralax if needed - these are available at the drug store -heat/ice may help and keep moving, gentle stretching is ok -follow up with primary care. If this is not helping, you can consider adding a small dose of gabapentin at bedtime (though this causes risk of confusion and grogginess) or a steroid injection of the nerve root It was a pleasure taking care of you in the hospital, Natty De La Paz MD Total Time Total Time Spent Total Time Spent (In Minutes): I personally spent: 35 minutes today on clinical care activities including: reviewing chart notes and vital signs reviewing studies - outpatient MRI records, previous CT chest and T-spine records discussion with his audio/visual manager examining and counseling the patient writing orders writing prescriptions, discharge instructions documentation Coding Level of Care Code 37721 INP/OBS DISCH >30 MIN Diagnoses Hypervolemia associated with renal insufficiency E87.70; N28.9 Left lumbar radiculopathy M54.[address] of the abdomen R93.5 Hypertensive urgency I16.0 End stage renal disease on dialysis N18.6; Z99.2
== END 2024-07-04 13:44 | disposition home or self-care (01) | DRG 640 ==
LOC: ED 07:20 → SUATTDRO 10:29 → INTOOBSV 10:29 → EDINP 10:29 → 2W 14:05